=== PATIENT | male | born 1950 | race Caucasian/White ===

== ENCOUNTER 2018-11-14 19:04 | Observation (INO) | payer MEDICARE, SELFPAY ==
[2018-11-14 19:17] VITALS: BP 152/79; PULSE 46; RESP 16; O2SAT 99; BMI 25.8
[2018-11-14] MEDS: SODIUM CHLORIDE 0.9% 1,000 ML 1000 ML IV (22:49)
[2018-11-14 22:53] LABS: Add Manual Diff / Slide Review NO; Basophils Absolute Auto 0 /uL (0-100); Basophils Percent Auto 0.4 % (0-2); Eosinophils Absolute Auto 100 /uL (0-450); Hematocrit 46.6 % (41-53); Hemoglobin 15.7 g/dL (13.5-17.5); Lymphocytes Absolute Auto 1100 /uL (1100-4500); Lymphocytes Percent Auto 18.5 % (25-40); Mean Corpuscular HGB Conc 33.7 % (30-36); Mean Corpuscular Hemoglobin 30.9 PG (26-34); Mean Corpuscular Volume 91.6 fL (80-100); Monocytes Absolute Auto 400 /uL (0-900); Monocytes Percent Auto 6.1 % (3-14); Neutrophils Absolute Auto 4500 /uL (1500-7000); Platelet Count 163 X10^3/uL (150-400); Red Blood Cell Count 5.09 X10^6/uL (4.5-5.9); Red Cell Distribution Width 12.5 % (11.6-14.8); White Blood Cell Count 6.2 X10^3/uL (4.5-11.0)
[2018-11-14] MEDS: HYDROMORPHONE 0.5 MG INJ IV (22:59)
[2018-11-14 23:03] LABS: Lactate (Lactic Acid) 0.6 mmol/L (0.7-2.1)
[2018-11-14 23:04] LABS: BUN Creatinine Ratio 15.6 (6-22); Blood Urea Nitrogen 14 mg/dL (9-20); Calcium 8.9 mg/dL (8.4-10.2); Carbon Dioxide 27 mmol/L (22-32); Chloride 104 mmol/L (98-107); Estimated Glomerular Filt Rate > 60.0 mL/min (>60); Glucose 96 mg/dL (80-110); HEMOLYSIS 16 (0-50); Potassium 4.5 mmol/L (3.4-5.1); Sodium 139 mmol/L (137-145)
[2018-11-14 23:30] VITALS: BP 155/75; PULSE 50; RESP 16; O2SAT 96
--- NOTE | 2018-11-14 23:34 | DI.CT.S_ITS ---
PROCEDURE: CT ABDOMEN PELVIS W CON INDICATIONS: severe right lower quadrant pain,incarcerated inguinal hernia, per general surgeon TECHNIQUE: After the administration of intravenous contrast, 5 mm thick sections acquired from the diaphragm to the symphysis. 5 mm coronal and sagittal reformats were acquired. For radiation dose reduction, the following was used: automated exposure control, adjustment of mA and/or kV according to patient size. COMPARISON: None. FINDINGS: Image quality: Excellent. ABDOMEN: Lung bases: Nodular infiltrates in the left lower lobe. Heart size is normal. Moderate size hiatal hernia. Solid organs: There is a 2.6 cm diameter enhancing mass in the anterior segment of right hepatic lobe. A 1.0 cm low density nodule is present in the left hepatic lobe. Liver is normal in size and enhancement. Gallbladder is is surgically absent. Biliary system is non dilated. Pancreas enhances normally. Spleen is normal in size and enhancement. No adrenal nodules. Kidneys demonstrate bilateral renal cortical thinning. There are multiple parapelvic cysts in the kidneys bilaterally. There is a duplicated right renal collecting system. The upper moiety of the right renal collecting system is dilated. There is moderate dilation of the right upper ureter. The lower moiety is mildly dilated but the right lower ureter is nondilated. Peritoneum and bowel: Bowel loops demonstrate normal wall thickness and caliber. There are multiple colonic diverticula. No free fluid or air. Nodes and vessels: No retroperitoneal or mesenteric adenopathy by size criteria. Aorta and inferior vena cava are normal in size. Miscellaneous: No ventral hernias. PELVIS: Genitourinary: Bladder wall thickness is normal. Miscellaneous: No inguinal adenopathy. There is a large fat containing left inguinal hernia. The right anterior corner of the ureter bladder is displaced toward the hernia neck. There is mild focal thickening in the right anterior bladder wall, likely reflect inflammatory change. Bones: There are multiple sclerotic foci in the lumbar spine involving L1, L2, L3, L4 and L5, sacrum and iliac bones bilaterally. No vertebral body compression fractures. Degenerative changes are noted. IMPRESSION: 1. There is a large fat containing right inguinal hernia. The right anterior corner of the urinary bladder is displaced toward the hernia neck. There is mild focal thickening in the right anterior bladder wall, likely reflect inflammatory change. 2. Duplicated right renal collecting system. There is dilation of the right upper renal pelvis and dilation of the right ureter to the level of right UVJ. Although the right lower renal pelvis is also mildly dilated, the right lower ureter is nondilated. No obstructive stones are identified. CT IVP or cystoscopy may be helpful for further evaluation. 3. A 2.6 cm diameter enhancing mass in the posterior segment the right hepatic lobe. Further evaluation with liver protocol MRI or CT is suggested. 4. Nodular infiltrates in the left lower lobe suspicious for pneumonia or aspiration. 5. Moderate-sized hiatal hernia. 6. Diverticulosis without acute diverticulitis. 7. Multiple sclerotic lesions in lumbar spine, sacrum and iliac bones. Cannot rule out metastatic disease. A whole body bone scan is suggested for followup. Dictated by: Danika Ireland M.D. on 11/15/2018 at 8:54 Approved by: Danika Ireland M.D. on 11/15/2018 at 9:26
[2018-11-15] VITALS (7 sets, daily range): BP systolic 117–153; BP diastolic 64–87; PULSE 48–58; RESP 16–20; TEMP 36.5–36.8; O2SAT 93–98; BMI 25.8
--- NOTE | 2018-11-15 00:59 | ED_ITS ---
HPI - Abdominal Pain General Chief Complaint: Abdominal Pain Stated Complaint: thinks inguinal hernia Time Seen by Provider: 11/14/18 21:58 Source: patient and family Mode of arrival: ambulatory Limitations: no limitations History of Present Illness HPI narrative: 67-year-old male nonsmoker with history of GERD and developmental delay presents with his brother for evaluation of right groin pain and suspected groin hernia. He was seen by his primary care doctor (Dr. ozuna) today and told that he has a groin hernia and it was arranged for him to have urgent follow-up with General surgery tomorrow but if his pain worsened he should present to the emergency department. Patient has had no fever or chills. He has no vomiting or change in bowel habits and in fact had a bowel movement this evening. It is unclear how long he has had this hernia MD complaint: abdominal pain Onset (ago): day(s) Pain Consistency: constant Location: RLQ Severity: moderate Quality: cramping Radiation: none Relieving factors: nothing Exacerbating factors: bowel movement and movement Associated symptoms: denies other symptoms Related Data Home Medications Medication Instructions Recorded Confirmed omeprazole 20 mg tablet,delayed 20 mg PO DAILY 09/23/18 09/23/18 release Allergies Allergy/AdvReac Type Severity Reaction Status Date / Time No Known Drug Allergies Allergy Verified 11/14/18 19:17 Review of Systems Constitutional Denies chills, Denies fever(s), Denies lethargy and Denies weakness Eyes Denies change in vision, Denies eye discharge, Denies irritation and Denies loss of vision ENT Ears, Nose, Mouth, and Throat: Denies change in voice, Denies neck pain and Denies sore throat Cardiovascular Denies chest pain, Denies irregular heart rhythm, Denies lightheadedness, Denies palpitations, Denies dyspnea, Denies dyspnea on exertion and Denies orthopnea Respiratory Denies cough, Denies dyspnea, Denies dyspnea on exertion and Denies wheezing Gastrointestinal Gastrointestinal: Reports abdominal pain, Denies change in bowel habits, Denies diarrhea, Denies nausea and Denies vomiting Genitourinary Denies hematuria, Denies flank pain, Denies urinary incontinence and Denies urinary urgency Musculoskeletal Denies neck pain Integumentary/Breasts Denies pruritus, Denies erythema, Denies rash and Denies wounds Neurologic Denies confusion, Denies loss of vision and Denies weakness Psychiatric Denies anxiety, Denies confusion, Denies depression, Denies homicidal ideation and Denies suicidal ideation Endocrine Denies palpitations Hematologic/Lymphatic Denies easy bruising Allergic/Immunologic Denies wheezing PFSH Social History Smoking Status: Never smoker Social History Smoking Status: Never smoker Exam Narrative Exam Narrative: GENERAL: S 67-year-old male appears stated age, flat affect in no obvious or significant distress HEAD: Atraumatic. Normocephalic. No temporal or scalp tenderness. EYES: Pupils equal round and reactive. Extraocular motions intact. No scleral icterus. No injection or drainage. ENT: Nose without bleeding, purulent drainage or septal hematoma. Throat without erythema, tonsillar hypertrophy or exudate. Uvula midline. Airway patent. NECK: Trachea midline. No JVD or lymphadenopathy. Supple, nontender, no meningeal signs. CARDIOVASCULAR: Regular rate and rhythm without murmurs, gallops, or rubs. RESPIRATORY: Clear to auscultation. Breath sounds equal bilaterally. No wheezes, rales, or rhonchi. GASTROINTESTINAL: Abdomen soft, tender in right lower quadrant with obvious inguinal hernia, nondistended. Patient examined in standing position and right inguinal hernia is present, it is irreducible while standing. Patient placed in Trendelenburg after Dilaudid administered and still unable to reduce EXTREMITIES: No clubbing, cyanosis, or edema. No joint tenderness, effusion, or edema noted. BACK: Nontender without deformity or crepitance. No flank tenderness. NEURO: AOx3. SKIN: No rash or erythema. Initial Vital Signs Initial Vital Signs: Vital Signs Pulse Rate 46 L 11/14/18 19:17 Respiratory Rate 16 11/14/18 19:17 Blood Pressure 152/79 H 11/14/18 19:17 Pulse Oximetry 99 11/14/18 19:17 Course Orders Ordered: ED Orders 11/14/18 22:42 Basic Metabolic Panel Stat Complete Blood Count AUTO DIFF Stat Lactate (Lactic Acid) Stat 11/14/18 23:34 CT abdomen pelvis w con Stat Discontinued Medications Hydromorphone HCl (Dilaudid) 0.5 mg IV NOW ONE Stop: 11/14/18 22:14 Last Admin: 11/14/18 22:59 Dose: 0.5 mg Sodium Chloride (Normal Saline 0.9%) 1,000 mls @ 1,000 mls/hr IV BOLUS ONE Stop: 11/14/18 23:12 Last Infusion: 11/14/18 23:49 Dose: 0 mls/hr Admin: 11/14/18 22:49 Dose: 1,000 mls/hr Reevaluation(s) Reevaluation #1: Unable to reduce after placing patient in Trendelenburg and Dilaudid administered. Contacted General surgery whom requests CT scan and admission for likely surgery tomorrow. CT pending Consultations Consultation #1: Dr. Lynch is happy to accept patient and will likely take to OR tomorrow Vital Signs - 8 hr 11/14/18 19:17 11/14/18 23:30 11/15/18 00:30 Pulse Rate 46 L 50 L 49 L Respiratory Rate 16 16 16 Blood Pressure 152/79 H Blood Pressure [Left Arm] 155/75 H 143/68 H Pulse Oximetry 99 96 93 MDM - Abdominal Pain Lab Data Result diagrams: 11/14/18 22:42 11/14/18 22:42 Lab Results 11/14/18 11/14/18 11/14/18 Range/Units 22:42 22:42 22:42 WBC 6.2 (4.5-11.0) X10^3/uL RBC 5.09 (4.5-5.9) X10^6/uL Hgb 15.7 (13.5-17.5) g/dL Hct 46.6 (41-53) % MCV 91.6 (80-100) fL MCH 30.9 (26-34) PG MCHC 33.7 (30-36) % RDW 12.5 (11.6-14.8) % Plt Count 163 (150-400) X10^3/uL Neut % (Auto) 73.0 (50-75) % Lymph % (Auto) 18.5 L (25-40) % [place] % (Auto) 6.1 (3-14) % Eos % (Auto) 2.0 (2-4) % Baso % (Auto) 0.4 (0-2) % Neut # (Auto) 4500 (3682-0129) /uL Lymph # (Auto) 1100 (7148-1015) /uL [place] # (Auto) 400 (0-900) /uL Eos # (Auto) 100 (0-450) /uL Baso # (Auto) 0 (0-100) /uL Sodium 139 (137-145) mmol/L Potassium 4.5 (3.4-5.1) mmol/L Chloride 104 (98-107) mmol/L Carbon Dioxide 27 (22-32) mmol/L BUN 14 (9-20) mg/dL Creatinine 0.90 (0.66-1.25) mg/dL Estimated GFR > 60.0 (>60) mL/min BUN/Creatinine Ratio 15.6 (6-22) Glucose 96 (80-110) mg/dL Lactate 0.6 L (0.7-2.1) mmol/L Calcium 8.9 (8.4-10.2) mg/dL Point of care testing: Urine Dip Bedside Urine Glucose Negative Bedside Urine Bilirubin - Negative Bedside Urine Ketone - Negative Urine Specific [place] 1.010 Bedside Urine Occult Blood - Negative Bedside Urine pH 7.5 Bedside Urine Protein - Negative Bedside Urine Urobilinogen - Negative Bedside Urine Nitrite - Negative Bedside Urine Leukocytes - Negative Esterase Imaging Data CT scan - abdomen: Radiologist's impression: Large R inguinal hernia containing fat and a portion of the urinary bladder and inflammatory changes suggesting incarceration Discharge Plan Departure Prescriptions: No Action omeprazole 20 mg tablet,delayed release (DR/EC) 20 mg PO DAILY RF: 0
[2018-11-15] MEDS: SODIUM CHLORIDE 0.9% 1,000 ML 125 ML IV ×2 (02:03→10:17)
--- NOTE | 2018-11-15 03:09 | PC.NURSE ---
pt admitted to room 226 at approx 0200 from ed- he is alert/oriented and presently denies pain- iv running at 125cc/h, oriented to room, call light and bed controls- ambulated to bathroom for small urinary void- tucked back in and understands the plan for NPO status
--- NOTE | 2018-11-15 09:15 | PM.HP.1 ---
History of Present Illness Date Patient Seen: 11/15/18 Time Patient Seen: 09:15 Chief complaint: thinks inguinal hernia Narrative: Costa is a very pleasant 67-year-old gentleman who has recently moved to the area with his family. He suffered from a cold in the last several days and was seen by Dr. Millan recently and started on a Z-Wallace. Unfortunately, with all the coughing, he developed a right inguinal hernia that became acutely incarcerated yesterday. Dr. Millan tried to reduce it in his office and Dr. coon tried to reduce it in our emergency room. Both without any luck. CT scan revealed that the hernia was incarcerated with portions of bladder and omentum and preperitoneal fat. Overnight, Costa's pain has completely resolved. He is no longer uncomfortable and he is walking passing flatus and able to urinate without difficulty. Today he is accompanied by his oxibip-cz-cew with whom he lives. Patient History Social History household members: family Smoking Status: Never smoker alcohol intake: never Family & Social History Social History: household members family Prior Living Arrangements House Safety & Behavioral: Feels Safe in Current Yes Environment Suicidal Ideation Description None Suicide Plan Description No Plan Tobacco & Substance use: Smoking Status Never smoker alcohol intake never Substance Use Type does not use Meds Home Medications Medication Instructions Recorded Confirmed Type omeprazole 20 mg tablet,delayed 20 mg PO DAILY 09/23/18 09/23/18 History release Allergies Allergy/AdvReac Type Severity Reaction Status Date / Time No Known Drug Allergies Allergy Verified 11/14/18 19:17 Review of Systems Review of Systems All systems reviewed & are unremarkable except as noted in HPI and below Exam Vital Signs (past 8 hours): - 11/15/18 01:30 11/15/18 01:55 11/15/18 05:40 Temperature 97.8 F 98 F Pulse Rate 49 L 58 L 50 L Respiratory Rate 16 20 16 Blood Pressure 153/68 H 133/73 Blood Pressure [Left Arm] 132/64 Pulse Oximetry 94 98 98 11/15/18 08:00 Temperature 98.1 F Pulse Rate 48 L Respiratory Rate 17 Blood Pressure 117/66 Blood Pressure [Left Arm] Pulse Oximetry 97 Oxygen Delivery Method Room Air Narrative Exam Narrative: Very pleasant gentleman who appears younger than his stated age. He is somewhat developmentally delayed but very interactive and pleasant HEENT: Normocephalic and atraumatic, pupils equal round reactive to light accommodation with anicteric sclera Lungs: Clear to auscultation bilaterally. He does have some upper airway noise but improved with coughing Heart: Regular rate and rhythm without murmur rub or gallop Extremities: Warm and well perfused without any edema. He does have a macular rash on the lateral aspect of his left lower leg. His [id number] reports this has been there for years and is unchanged. Weakly palpable posterior tibial pulses bilaterally Abdomen: Soft, he has a small umbilical hernia that is soft and not incarcerated. He has a larger tender but very soft right inguinal hernia. He says there is no pain there now. There are certainly not an incarcerated mass any longer. He has active bowel sounds. His abdomen is otherwise nontender. Objective Labs Result Diagrams: 11/14/18 22:42 11/14/18 22:42 Labs: Laboratory Results - last 24 hr 11/14/18 11/14/18 11/14/18 22:42 22:42 22:42 WBC 6.2 RBC 5.09 Hgb 15.7 Hct 46.6 MCV 91.6 MCH 30.9 MCHC 33.7 RDW 12.5 Plt Count 163 Neut % (Auto) 73.0 Lymph % (Auto) 18.5 L [place] % (Auto) 6.1 Eos % (Auto) 2.0 Baso % (Auto) 0.4 Neut # (Auto) 4500 Lymph # (Auto) 1100 [place] # (Auto) 400 Eos # (Auto) 100 Baso # (Auto) 0 Sodium 139 Potassium 4.5 Chloride 104 Carbon Dioxide 27 BUN 14 Creatinine 0.90 Estimated GFR > 60.0 BUN/Creatinine Ratio 15.6 Glucose 96 Lactate 0.[address] images are personally reviewed and consistent with what I have stated in history of present illness. Assessment & Plan Assessment & Plan narrative: Very pleasant 67-year-old gentleman with a recent upper respiratory infection and a right inguinal hernia that became incarcerated over the day yesterday. I have discussed hernia repair with both dated and his caregiver. They have both expressed a desire to have the procedure completed today. It has been scheduled for approximately 5:15 p.m.. Consent has been signed and is on the chart.
--- NOTE | 2018-11-15 09:18 | P.HP_ITS ---
History of Present Illness Date Patient Seen: 11/15/18 Time Patient Seen: 09:15 Chief complaint: thinks inguinal hernia Narrative: Costa is a very pleasant 67-year-old gentleman who has recently moved to the area with his family. He suffered from a cold in the last several days and was seen by Dr. Millan recently and started on a Z-Wallace. Unfortunately, with all the coughing, he developed a right inguinal hernia that became acutely incarcerated yesterday. Dr. Millan tried to reduce it in his office and Dr. coon tried to reduce it in our emergency room. Both without any luck. CT sc an revealed that the hernia was incarcerated with portions of bladder and omentum and preperitoneal fat. Overnight, Costa's pain has completely resolved. He is no longer uncomfortable and he is walking passing flatus and able to urinate without difficulty. Today he is accompanied by his [id number]-tal with whom he lives. Patient History Social History household members: family Smoking Status: Never smoker alcohol intake: never Family & Social History Social History: household members family Prior Living Arrangements House Safety & Behavioral: Feels Safe in Current Yes Environment Suicidal Ideation Description None Suicide Plan Description No Plan Tobacco & Substance use: Smoking Status Never smoker alcohol intake never Substance Use Type does not use Meds Home Medications Medication Instructions Recorded Confirmed Type omeprazole 20 mg tablet,delayed 20 mg PO DAILY 09/23/18 09/23/18 History release Allergies Allergy/AdvReac Type Severity Reaction Status Date / Time No Known Drug Allergies Allergy Verified 11/14/18 19:17 Review of Systems Review of Systems All systems reviewed & are unremarkable except as noted in HPI and below Exam Vital Signs (past 8 hours): - 11/15/18 01:30 11/15/18 01:55 11/15/18 05:40 Temperature 97.8 F 98 F Pulse Rate 49 L 58 L 50 L Respiratory Rate 16 20 16 Blood Pressure 153/68 H 133/73 Blood Pressure [Left Arm] 132/64 Pulse Oximetry 94 98 98 11/15/18 08:00 Temperature 98.1 F Pulse Rate 48 L Respiratory Rate 17 Blood Pressure 117/66 Blood Pressure [Left Arm] Pulse Oximetry 97 Oxygen Delivery Method Room Air Narrative Exam Narrative: Very pleasant gentleman who appears younger than his stated age. He is somewhat developmentally delayed but very interactive and pleasant HEENT: Normocephalic and atraumatic, pupils equal round reactive to light a ccommodation with anicteric sclera Lungs: Clear to auscultation bilaterally. He does have some upper airway noise but improved with coughing Heart: Regular rate and rhythm without murmur rub or gallop Extremities: Warm and well perfused without any edema. He does have a macular rash on the lateral aspect of his left lower leg. His [id number]-brv reports this has been there for years and is unchanged. Weakly palpable posterior tibial pulses bilaterally Abdomen: Soft, he has a small umbilical hernia that is soft and not incarcerated. He has a larger tender but very soft right inguinal hernia. He says there is no pain there now. There are certainly not an incarcerated mass any longer. He has active bowel sounds. His abdomen is otherwise nontender. Objective Labs Result Diagrams: 11/14/18 22:42 11/14/18 22:42 Labs: Laboratory Results - last 24 hr 11/14/18 11/14/18 11/14/18 22:42 22:42 22:42 WBC 6.2 RBC 5.09 Hgb 15.7 Hct 46.6 MCV 91.6 MCH 30.9 MCHC 33.7 RDW 12.5 Plt Count 163 Neut % (Auto) 73.0 Lymph % (Auto) 18.5 L [place] % (Auto) 6.1 Eos % (Auto) 2.0 Baso % (Auto) 0.4 Neut # (Auto) 4500 Lymph # (Auto) 1100 [place] # (Auto) 400 Eos # (Auto) 100 Baso # (Auto) 0 Sodium 139 Potassium 4.5 Chloride 104 Carbon Dioxide 27 BUN 14 Creatinine 0.90 Estimated GFR > 60.0 BUN/Creatinine Ratio 15.6 Glucose 96 Lactate 0.[address] images are personally reviewed and consistent with what I have stated in history of present illness. Assessment & Plan Assessment & Plan narrative: Very pleasant 67-year-old gentleman with a recent upper respiratory infection and a right inguinal hernia that became incarcerated over the day yesterday. I have discussed hernia repair with both dated and his caregiver. They have both expressed a desire to have the procedure completed today. It has been scheduled for approximately 5:15 p.m.. Consent has been signed and is on the chart.
[2018-11-15] MEDS: PANTOPRAZOLE 40 MG VIAL IV (10:16)
[2018-11-15] MEDS: CEFTRIAXONE 2 GM/50 ML FROZ.PIGGY IV (10:16)
--- NOTE | 2018-11-15 12:29 | PC.NURSE ---
Day shift pt continues to denies any pain at this time. Denies any nausea or GI upset. Continues to be NPO, call light within reach.
--- NOTE | 2018-11-15 16:16 | CM.DANOTE ---
Discharge Planning/Care Management DCP: assessment: chart review. Case received this morning and EMR is now reviewed. Pt is a 67 year old male who admitted early this mornin to care of General Surgeon: Dr. Lynch. Payer: [facility] Medicare. Pt lives with his sister in law and brother in [place]: DR. Millan: PCP. Dr. Lynch discussed the plan of care with pt and his sister in law and then with the UR RN team/Chandrika: she confirmed that pt would be taken to the OR when he could be fit in to schedule today and then she plans to send him home form right from surgery if he is stable for same. DCP team will check in tomorrow if he instead returns to rm 226 and follow prn for any needs. Advanced directive, confirm from FAMILY Start: 11/15/18 02:37 Freq: Q24H Status: Active Protocol: Document 11/15/18 02:37 TJB (Rec: 11/15/18 03:04 TJB [id number]) Advance Directive, confirm on record Time 03:04 Person contacted patient Copy received No CM Discharge Assessment Start: 11/15/18 16:13 Freq: Status: Active Protocol: Document 11/15/18 16:13 ITV (Rec: 11/15/18 16:15 ITV [id number]) Discharge Planning Assessment Advance Directives? No History Provided By Medical Record Prior Living Arrangements House Household Members family Comment lives with his brother and sister in law. Is patient alert and oriented? Dr. Lynch indicates pt with some mild developmental delay Review Status In Process Next Review Type Continued Stay Review
--- NOTE | 2018-11-15 16:45 | PM.PN.1 ---
Subjective Date Patient Seen: 11/15/18 Time Patient Seen: 16:45 Interval history: The patient has no complaints this afternoon other than being hungry. He is accompanied this afternoon by his brother who is his local family and with whom he lives. After discussing OR timing, both patient and family have agreed to continue taking the Zithromax Dosepak and come back for scheduled operation a week from now. This will give him time to clear his upper respiratory infection. Until that time, he will avoid lifting more than 5 lb. He will also limit his walks to a half a mile as opposed to 2 miles. The office will call and give him instructions. Exam Vital Signs (past 8 hours): - 11/15/18 12:00 Temperature 97.7 F Pulse Rate 54 L Respiratory Rate 16 Blood Pressure 130/87 Oxygen Delivery Method Room Air Oxygen Flow Rate 99 Objective Labs Result Diagrams: 11/14/18 22:42 11/14/18 22:42 Labs: Laboratory Results - last 24 hr 11/14/18 11/14/18 11/14/18 22:42 22:42 22:42 WBC 6.2 RBC 5.09 Hgb 15.7 Hct 46.6 MCV 91.6 MCH 30.9 MCHC 33.7 RDW 12.5 Plt Count 163 Neut % (Auto) 73.0 Lymph % (Auto) 18.5 L [place] % (Auto) 6.1 Eos % (Auto) 2.0 Baso % (Auto) 0.4 Neut # (Auto) 4500 Lymph # (Auto) 1100 [place] # (Auto) 400 Eos # (Auto) 100 Baso # (Auto) 0 Sodium 139 Potassium 4.5 Chloride 104 Carbon Dioxide 27 BUN 14 Creatinine 0.90 Estimated GFR > 60.0 BUN/Creatinine Ratio 15.6 Glucose 96 Lactate 0.6 L Calcium 8.9
--- NOTE | 2018-11-15 18:36 | PC.NURSE ---
in to see. Surgery postponed until next week HL discontinued, Home, instrutions given Escorted by staff to waiting vehicle Discharged in stable condition.
== END 2018-11-15 17:15 | disposition home or self-care (01) ==
LOC: ED 21:58 → AC 11-15 02:10
PROVIDERS: Admitting Provider Surgery; Emergency Provider Emergency Medicine; PCP Internal Medicine; Visit Provider Surgery
DX: K40.30 Unilateral inguinal hernia, with obstruction, without gangrene, not specified as recurrent (principal); R10.9 Unspecified abdominal pain
CPT/HCPCS: 36591; 74177; 80048; 81003; 83605; 85025; 96361; 96374; 99220; 99283; 99285; G0378; C9113; J0696; J1170; Q9967

== ENCOUNTER 2018-11-23 10:23 | Day surgery (SDC) | payer MEDICARE, SELFPAY ==
[2018-11-15 02:06] VITALS: BMI 25.8
[2018-11-18 09:09] VITALS: BMI 25.4
[2018-11-23] VITALS (8 sets, daily range): BP systolic 120–146; BP diastolic 70–83; PULSE 64–89; RESP 9–16; TEMP 36.2–36.7; O2SAT 98–100; BMI 25.4
[2018-11-23] MEDS: LACTATED RINGERS 1,000 ML 42 ML IV (11:15)
--- NOTE | 2018-11-23 11:19 | PM.PREOP ---
Pre-operative Note Interval Note History & Physical reviewed/Exam performed by Physician: Yes Changes to H&P: No
[2018-11-23] MEDS: CEFAZOLIN 1 GM VIAL IV (11:44)
--- NOTE | 2018-11-23 11:50 | SUR.OPER ---
Supine on padded OR bed, head on pillow, arms secured on padded arm boards at <90 degrees abduction, legs uncrossed, safety belt at thigh.
[2018-11-23] MEDS: BUPIVACAINE 0.5% (PF) VIAL 30 ML INJ (11:54)
[2018-11-23] MEDS: LIDOCAINE 1% W/EPI INJ 20 ML INJ (11:55)
[2018-11-23] MEDS: SODIUM CHLORIDE IRRIG SOLUTION 250 ML, CEFAZOLIN VIAL 1 GM IRR (12:08)
--- NOTE | 2018-11-23 12:47 | PM.OP.1 ---
Operative Date/Time/Diagnoses Date of procedure: 11/23/18 Time of procedure: 12:47 Pre-op diagnosis: Right Inguinal Hernia Post-op diagnosis: same Procedure & Clinicians Procedure: Right Inguinal Hernia Repair Same procedure as scheduled: Yes Indications: Large Intermittently Incarcerated Right Inguinal Hernia Click Yes if Unassisted: Yes Anesthesia Type: General (Dr. Moore) Operative Notes Findings: Very Large Indirect Right Inguinal Hernia Closure Type: primary Specimen(s): none sent Prosthetic devices, grafts, tissues, transplants, or devices: Large Proloop Mesh Plug and Patch Estimated Blood Loss (mL): 10 Procedure in detail: After obtaining informed consent the patient was brought to the operating room and placed in the supine position on the operating table. Following successful induction of general endotracheal anesthesia, appropriate padding of all bony prominences, and a placement of appropriate monitors, the left groin is prepped and draped in a standard surgical fashion. A timeout was held per protocol. We began the procedure by infiltrating a mixture of local anesthetics medial to the anterior superior iliac spine on the right. Following this, an incision was fashioned in the right groin superior and lateral to the left pubic tubercle. This area was infiltrated with local anesthetic to create a field block. A skin incision was created here and carried down through the skin and subcutaneous tissue to reveal Louise's fascia below. Louise's fascia was divided sharply revealing the external oblique aponeurosis below. More local anesthetic was infiltrated in the aponeurosis and it was opened in the direction of its fibers. The spermatic cord and its contents were surrounded and retracted gently using a [place] drain. The hernia sac was identified in the lateral position and carefully dissected free from the cord structures. This was carefully placed back into the abdominal cavity without injury. A large portion of PROloop mesh was chosen for the repair. The plug was soaked in Ancef solution and deployed into the defect in the defect. This was sewn into place with interrupted Vicryl sutures in 2 positions. The overlying mesh layer was sewn to the pubic tubercle with an air knot of Vicryl suture. The lateral leaflets were then carefully placed around the spermatic cord and sewn together with another suture. Tags of the overlying mesh were then tucked under the external oblique aponeurosis. The wound was checked for hemostasis and irrigated with Ancef-containing solution. The edges of the external oblique aponeurosis were approximated and closed with a running Vicryl suture. The wound was irrigated once again and Louise's fascia was closed with a running suture. Monocryl sutures were placed in the skin. All sponge, needle, and instrument counts were correct at the conclusion of the case. The patient was allowed to awaken from anesthesia without difficulty and taken to the post anesthesia care unit in good condition. Complications: none Condition: stable Disposition: PACU Plan for aftercare: 1. Discharge to home 2. Follow up with me in my office in 2 weeks
--- NOTE | 2018-11-23 13:06 | SUR.PHASEI ---
Awake, taking sips of water, asking appropriate questions about surgery, being sleepy today, and pain. Denies nausea and pain.
== END 2018-11-23 14:24 | disposition home or self-care (01) ==
PROVIDERS: PCP Internal Medicine; Visit Provider Surgery
PROC: (CPT 49505; principal; 2018-11-23 14:15)
DX: K40.30 Unilateral inguinal hernia, with obstruction, without gangrene, not specified as recurrent (principal)
CPT/HCPCS: 49505; C1781; J0690; J1885; J2405; J2704; J3010

== ENCOUNTER 2018-11-25 06:40 | Inpatient (IN) | payer MEDICARE, SELFPAY ==
[2018-11-15 02:06] VITALS: BMI 25.8
[2018-11-25] VITALS (18 sets, daily range): BP systolic 89–128; BP diastolic 52–73; PULSE 67–95; RESP 18–23; TEMP 35.9–39.3; O2SAT 91–100; BMI 25.8; BMI 25.9
--- NOTE | 2018-11-25 | DI.RAD.S_ITS ---
PROCEDURE: XR KUB INDICATIONS: bilateral hydronephrosis TECHNIQUE: One view of the abdomen acquired. COMPARISON: [facility], CT, CT ABDOMEN PELVIS W CON, 11/14/2018, 23:36. FINDINGS: Surgical changes and devices: Cholecystectomy clips are noted. Bowel: Bowel gas pattern is normal. Soft tissues: No suspicious abdominal calcifications. Visualized solid organ contours appear normal in size. Bones: No suspicious bony lesions. IMPRESSION: No renal stones identified. Dictated by: Danika Ireland M.D. on 11/25/2018 at 15:22 Approved by: Danika Ireland M.D. on 11/25/2018 at 15:23
--- NOTE | 2018-11-25 06:41 | DI.RAD.S_ITS ---
PROCEDURE: XR CHEST 1V INDICATIONS: dyspnea, cough, fever TECHNIQUE: One view of the chest was acquired. COMPARISON: None. FINDINGS: Surgical changes and devices: None. Lungs and pleura: There is infiltrate in right lung suspicious for pneumonia. No pleural effusions or pneumothorax. Mediastinum: Mediastinal contours appear normal. Heart size is normal. Bones and chest wall: No suspicious bony lesions. Overlying soft tissues appear unremarkable. IMPRESSION: Suspect right pneumonia. Dictated by: Danika Ireland M.D. on 11/25/2018 at 8:37 Approved by: Danika Ireland M.D. on 11/25/2018 at 8:37
--- NOTE | 2018-11-25 06:43 | ED.SOB ---
HPI - SOB/Dyspnea <Melissa King MD - Last Filed: 11/27/18 20:11> General Chief Complaint: Upper Respiratory Symptoms Stated Complaint: Congestion Time Seen by Provider: 11/25/18 06:41 Source: patient, family and EMS Mode of arrival: EMS Limitations: other (Cognitive limitation) History of Present Illness Patient is brought to the emergency department for cough and shortness of breath. According to medics this has been going on for the last couple days but has been worse tonight. Medics also found the patient to have a temperature of 103?. Patient denies chest pain. He states that he does not know if he has been coughing anything up. He also does not know if he has had any abdominal pain. He just states I do not feel good. Patient denies swelling in his legs. Patient states that he does not have a sore throat. Related Data Home Medications Medication Instructions Recorded Confirmed omeprazole 20 mg tablet,delayed 20 mg PO DAILY 09/23/18 11/26/18 release L-Tyrosine 3 tab PO DAILY 11/25/18 11/25/18 cholecalciferol (vitamin D3) 2,000 unit PO DAILY 11/25/18 11/25/18 [Vitamin D3] cranberry extract 300 mg PO DAILY 11/25/18 11/25/18 garlic extract 1 cap PO DAILY 11/25/18 11/25/18 multivitamin 1 tab PO DAILY 11/25/18 11/25/18 ondansetron 4 mg PO Q6H PRN 11/25/18 11/25/18 vitamin K2 100 meq PO DAILY 11/25/18 11/25/18 Previous Rx's Medication Instructions Recorded oxycodone-acetaminophen [Percocet] 1 tab PO Q4-6H PRN #20 tab 11/23/18 benzonatate 200 mg capsule 200 mg PO TID PRN #30 cap 11/24/18 acetaminophen 650 mg PO Q6HR PRN #30 tab 11/27/18 albuterol sulfate 1 puff INHALATION Q6H PRN #18 gram 11/27/18 amoxicillin-pot clavulanate 1 tab PO BID #10 tab 11/27/18 [Augmentin] docusate sodium 100 mg PO BID #60 cap 11/27/18 guaifenesin 1,200 mg PO BID #10 tab 03/17/19 polyethylene glycol 3350 17 gm PO DAILY PRN #1 pkg 11/27/18 sennosides [senna] 17.2 mg PO BEDTIME PRN #30 tab 11/27/18 tamsulosin [Flomax] 0.4 mg PO DAILY #30 cap 11/27/18 Allergies Allergy/AdvReac Type Severity Reaction Status Date / Time No Known Drug Allergies Allergy Verified 11/25/18 12:48 Review of Systems <Melissa King MD - Last Filed: 11/27/18 20:11> Constitutional Denies chills, Denies fever(s), Denies lethargy and Denies weakness Eyes Denies change in vision, Denies eye discharge, Denies irritation and Denies loss of vision ENT Ears, Nose, Mouth, and Throat: Denies change in voice, Denies neck pain and Denies sore throat Cardiovascular Denies chest pain, Denies irregular heart rhythm, Denies lightheadedness, Denies palpitations, Reports dyspnea, Denies dyspnea on exertion and Denies orthopnea Respiratory Reports cough, Reports dyspnea, Denies dyspnea on exertion and Denies wheezing Gastrointestinal Gastrointestinal: Denies abdominal pain, Denies change in bowel habits, Denies diarrhea, Denies nausea and Denies vomiting Genitourinary Denies hematuria, Denies flank pain, Denies urinary incontinence and Denies urinary urgency Musculoskeletal Denies neck pain Integumentary/Breasts Denies pruritus, Denies erythema, Denies rash and Denies wounds Neurologic Denies confusion, Denies loss of vision and Denies weakness Psychiatric Denies anxiety, Denies confusion, Denies depression, Denies homicidal ideation and Denies suicidal ideation Endocrine Denies palpitations Hematologic/Lymphatic Denies easy bruising Allergic/Immunologic Denies wheezing <Antonieta Kaminski DO - Last Filed: 11/25/18 11:29> Review of Systems ROS Unobtainable: All systems reviewed & are unremarkable except as noted in HPI and below Constitutional Denies fatigue and Reports fever(s) Cardiovascular Denies chest pain, Denies edema, Denies dyspnea and Denies dyspnea on exertion Respiratory Reports chest congestion, Reports cough, Denies hemoptysis, Denies pain on inspiration, Denies dyspnea, Denies dyspnea on exertion, Denies stridor and Denies wheezing Gastrointestinal Gastrointestinal: Denies abdominal pain, Denies change in bowel habits, Reports constipation (last BM overnight. hard stool.), Denies diarrhea, Denies nausea, Denies vomiting and Reports other (healing incision) Genitourinary Denies hematuria, Denies genital pain, Denies dysuria, Denies flank pain and Denies urinary urgency Endocrine Denies fatigue Allergic/Immunologic Denies wheezing PFSH <Melissa King MD - Last Filed: 11/27/18 20:11> Medical History Developmental delay (Acute) Asthma (Acute) GERD (gastroesophageal reflux disease) (Acute) Developmental delay, mild (Acute) GERD (gastroesophageal reflux disease) (Acute) Upper respiratory infection (Acute ~11/2018) Surgical History History of tonsillectomy (Acute) History of hernia repair (Acute) Hx of cholecystectomy (Acute) Family History Mother Dementia Father Pneumonia Social History details: Lives with family household members: family Smoking Status: Never smoker alcohol intake: never Family History Mother Dementia Father Pneumonia Social History details: Lives with family household members: family Smoking Status: Never smoker alcohol intake: never Exam <Melissa King MD - Last Filed: 11/27/18 20:11> Initial Vital Signs Initial Vital Signs: Vital Signs Temperature 102.7 F 11/25/18 06:45 Pulse Rate 95 11/25/18 06:45 Respiratory Rate 23 11/25/18 06:45 Blood Pressure 104/56 11/25/18 06:45 Pulse Oximetry 98 11/25/18 06:45 Const General: cooperative and well developed Nutritional Appearance: well nourished Orientation: alert, awake, oriented x3 and not confused [facility] Head: normocephalic and atraumatic Ears: external ears normal Nose: external nose normal and No nasal discharge Face and sinus: face symmetric and No dry mucous membranes Mouth: oral mucosae normal and moist mucous membranes Teeth and gingiva: dentition normal Throat: tonsils normal and uvula midline Eyes General: appearance normal, both eyes and all related structures Eyelids: eyelids normal Conjunctivae: conjunctivae normal Sclera: sclerae normal Pupils: PERRL EOM: EOM intact bilaterally Neck Neck: normal visual inspection, trachea midline, No lymphadenopathy, No midline deformity and No JVD Lymphatic: No lymphedema Chest Chest: normal inspection of the chest Resp Effort & Inspection: normal respiratory effort, able to speak in complete sentences, no respiratory distress and no use of accessory muscles Auscultation: clear to auscultation bilaterally, no rales, no rhonchi and no wheezes Other: Mild tachypnea Cardio Rate: regular rate Rhythm: regular rhythm Heart Sounds: no click, no gallops, no murmurs and no rubs Pulses: normal peripheral pulses GI Inspection: non-distended Palpation: soft, no hepatosplenomegaly, No guarding, No pulsatile mass and No tender Auscultation: normal bowel sounds Back/Spine/Pelvis Back: No CVA tenderness Cervical Spine: cervical ROM normal and No pain with cervical ROM Thoracic/Lumbar Spine: thoracic and lumbar spine normal to inspection Skin General: no rashes or lesions noted, No jaundice and No petechiae Neuro General: alert, oriented x3, gait normal and no focal motor deficits Speech: speech normal Extrem General: full ROM, no clubbing, cyanosis or edema, no pedal edema and no calf tenderness Psych Appearance: well kempt Mental Status: mental status grossly normal Attitude: cooperative Thought Content: normal and suicidality Judgment: judgment good <Antonieta Kaminski, DO - Last Filed: 11/25/18 11:29> Initial Vital Signs Initial Vital Signs: Vital Signs Temperature 102.7 F 11/25/18 06:45 Pulse Rate 95 11/25/18 06:45 Respiratory Rate 23 11/25/18 06:45 Blood Pressure 104/56 11/25/18 06:45 Pulse Oximetry 98 11/25/18 06:45 GEN: well nourished, well appearing male, alert and oriented, patient appears to be in mild distress. patient has mild to moderate developmental delay. He states that he feels fine but he also per his brother always tells everyone he feels fine. He does feel warm to the touch. HEENT: Atraumatic, pupils are equal round reactive to light, extraocular movements are intact, nares are clear, TMs are clear with no fluid, there is no conjunctival pallor. Throat is clear without any exudates, erythema, tonsillar enlargement or uvular deviation HEART: Regular rate and rhythm without murmur, clicks, rubs. No carotid bruits, pulses are equal in upper and lower extremities LUNGS:Lungs crackles right sided, patient has very mild wheeze on the right upper lobe, no tachypnea or accessory muscle use. Patient is able to speak in full sentences. ABD:bowel sounds Hypoactive but present, soft, non-tender, no guarding, rebound, rigidity, no masses noted, no hepatosplenomegaly, a mildly distended. Patient's right inguinal area has a healing surgical incision that appears clean and intact with no surrounding erythema, no drainage or signs of infection. There is fair amount of bruising surrounding the area No hematomas palpated. Patient is only mild tenderness to touch. :No CVA tenderness MSCL: Non-tender, no muscle atrophy NEURO:CN 2-12 intact, sensation normal Course <Melissa King MD - Last Filed: 11/27/18 20:11> Course Narrative: Patient was worked up for his fever, cough, and dyspnea with labs, influenza swab, and chest x-ray. He was given a L 0.9 normal saline, as well as Tylenol, and signed out to Dr. Antonieta Kaminski, pending results of workup. Orders Ordered: ED Orders 11/27/18 13:12 Consult to Home Health Routine Discontinued Medications Acetaminophen (Tylenol) 975 mg PO NOW ONE Stop: 11/25/18 07:09 Last Admin: 11/25/18 07:24 Dose: 975 mg Acetaminophen (Tylenol) 650 mg PO Q6HR PRN PRN Reason: As Needed for Fever/Mild Pain Last Admin: 11/27/18 09:15 Dose: 650 mg Admin: 11/26/18 09:33 Dose: 650 mg Albuterol (Ventolin) 2.5 mg INH RTQ2HR PRN PRN Reason: Shortness Of Breath Or Wheezing Last Admin: 11/25/18 19:46 Dose: 2.5 mg Albuterol/Ipratropium (Duoneb) 3 ml INH Q1H PRN PRN Reason: Shortness Of Breath Albuterol/Ipratropium (Duoneb) 3 ml INH [id number] GELY Last Admin: 11/27/18 12:43 Dose: 3 ml Admin: 11/27/18 06:12 Dose: 3 ml Admin: 11/26/18 18:51 Dose: 3 ml Admin: 11/26/18 13:21 Dose: 3 ml Admin: 11/26/18 07:59 Dose: 3 ml Admin: 11/25/18 17:34 Dose: 3 ml Amoxicillin/Clavulanate Potassium (Augmentin 875-125 Mg) 1 tab PO BID [facility] Benzonatate (Tessalon Perles) 100 mg PO TID PRN PRN Reason: Cough Last Admin: 11/27/18 09:15 Dose: 100 mg Admin: 11/27/18 00:31 Dose: 100 mg Admin: 11/26/18 09:33 Dose: 100 mg Admin: 11/25/18 19:56 Dose: 100 mg Calcium Carbonate (Tums) 1,000 mg PO Q4HR PRN PRN Reason: Dyspepsia Docusate Sodium (Colace) 100 mg PO BID [facility] Last Admin: 11/27/18 09:15 Dose: 100 mg Admin: 11/26/18 21:47 Dose: 100 mg Admin: 11/26/18 09:33 Dose: 100 mg Admin: 11/25/18 19:43 Dose: 100 mg Guaifenesin (Mucinex) 1,200 mg PO BID [facility] Last Admin: 11/27/18 09:15 Dose: 1,200 mg Admin: 11/26/18 21:47 Dose: 1,200 mg Admin: 11/26/18 09:33 Dose: 1,200 mg Admin: 11/25/18 19:43 Dose: 1,200 mg Heparin Sodium (Porcine) (Heparin) 5,000 unit SUBCUT BID [facility] Last Admin: 11/27/18 09:14 Dose: 5,000 unit Admin: 11/26/18 21:47 Dose: 5,000 unit Admin: 11/26/18 09:34 Dose: 5,000 unit Admin: 11/25/18 19:44 Dose: 5,000 unit Sodium Chloride (Normal Saline 0.9%) 1,000 mls @ 1,000 mls/hr IV BOLUS ONE Stop: 11/25/18 07:40 Last Infusion: 11/25/18 08:59 Dose: 0 mls/hr Admin: 11/25/18 06:45 Dose: 1,000 mls/hr Sodium Chloride (Normal Saline 0.9%) 1,000 mls @ 1,000 mls/hr IV BOLUS ONE Stop: 11/25/18 09:16 Last Infusion: 11/25/18 09:41 Dose: 0 mls/hr Admin: 11/25/18 08:59 Dose: 1,000 mls/hr Ceftriaxone Sodium/Dextrose (Rocephin) 1 gm in 50 mls @ 100 mls/hr IV NOW ONE Stop: 11/25/18 09:25 Last Infusion: 11/25/18 09:41 Dose: 0 mls/hr Admin: 11/25/18 09:04 Dose: 100 mls/hr Azithromycin 500 mg/ Dextrose 250 mls @ 250 mls/hr IV Q24H [facility] Stop: 11/27/18 12:31 Last Admin: 11/27/18 12:38 Dose: 250 mls/hr Infusion: 11/26/18 21:47 Dose: 0 mls/hr Admin: 11/26/18 13:19 Dose: 250 mls/hr Infusion: 11/25/18 15:00 Dose: 250 mls/hr Admin: 11/25/18 14:00 Dose: 250 mls/hr Ceftriaxone Sodium/Dextrose (Rocephin) 2 gm in 50 mls @ 100 mls/hr IV 0900 [facility] Last Admin: 11/27/18 09:14 Dose: 100 mls/hr Infusion: 11/25/18 14:05 Dose: 0 mls/hr Admin: 11/25/18 13:26 Dose: 100 mls/hr Sodium Chloride (Normal Saline 0.9%) 250 mls @ 21 mls/hr IV Q24H PRN PRN Reason: Flush Ibuprofen (Advil) 800 mg PO NOW ONE Stop: 11/25/18 07:09 Last Admin: 11/25/18 07:24 Dose: 800 mg Magnesium Hydroxide (Milk Of Magnesia) 30 ml PO BEDTIME PRN PRN Reason: Constipation Ondansetron HCl (Zofran Odt) 4 mg PO Q8HR PRN PRN Reason: Nausea And Vomiting Ondansetron HCl (Zofran) 4 mg IV Q8HR PRN PRN Reason: Nausea And Vomiting Oxycodone/Acetaminophen (Percocet 5/325) 1 tab PO Q4HR PRN PRN Reason: Pain, Moderate (4-6) Pantoprazole Sodium (Protonix) 20 mg PO 0700 [facility] Last Admin: 11/25/18 15:08 Dose: Not Given Pantoprazole Sodium (Protonix) 20 mg PO 0700 [facility] Last Admin: 11/27/18 06:51 Dose: 20 mg Admin: 11/25/18 14:05 Dose: 20 mg Polyethylene Glycol (Miralax) 17 gm PO DAILY PRN PRN Reason: Constipation Last Admin: 11/27/18 09:15 Dose: 17 gm Admin: 11/26/18 09:35 Dose: 17 gm Sennosides (Senna) 17.2 mg PO BEDTIME PRN PRN Reason: Constipation Sodium Chloride (Normal Saline 0.9% Flush) 10 ml IV PRN PRN PRN Reason: Flush Sodium Chloride (Normal Saline 0.9% Flush) 10 ml IV BID [facility] Last Admin: 11/27/18 09:16 Dose: 10 ml Admin: 11/26/18 21:47 Dose: 10 ml Admin: 11/26/18 09:36 Dose: 10 ml Admin: 11/25/18 19:45 Dose: 10 ml Tamsulosin HCl (Flomax) 0.4 mg PO DAILY [facility] Last Admin: 11/27/18 09:15 Dose: 0.4 mg Admin: 11/26/18 09:33 Dose: 0.4 mg Admin: 11/25/18 19:42 Dose: 0.4 mg Vital Signs - 8 hr 11/27/18 12:43 Pulse Rate 62 Respiratory Rate 22 Pulse Oximetry 99 <Antonieta Kaminski, - Last Filed: 11/25/18 11:29> Orders Ordered: ED Orders 11/27/18 13:12 Consult to Home Health Routine Discontinued Medications Acetaminophen (Tylenol) 975 mg PO NOW ONE Stop: 11/25/18 07:09 Last Admin: 11/25/18 07:24 Dose: 975 mg Acetaminophen (Tylenol) 650 mg PO Q6HR PRN PRN Reason: As Needed for Fever/Mild Pain Last Admin: 11/27/18 09:15 Dose: 650 mg Admin: 11/26/18 09:33 Dose: 650 mg Albuterol (Ventolin) 2.5 mg INH RTQ2HR PRN PRN Reason: Shortness Of Breath Or Wheezing Last Admin: 11/25/18 19:46 Dose: 2.5 mg Albuterol/Ipratropium (Duoneb) 3 ml INH Q1H PRN PRN Reason: Shortness Of Breath Albuterol/Ipratropium (Duoneb) 3 ml INH [id number] [facility] Last Admin: 11/27/18 12:43 Dose: 3 ml Admin: 11/27/18 06:12 Dose: 3 ml Admin: 11/26/18 18:51 Dose: 3 ml Admin: 11/26/18 13:21 Dose: 3 ml Admin: 11/26/18 07:59 Dose: 3 ml Admin: 11/25/18 17:34 Dose: 3 ml Amoxicillin/Clavulanate Potassium (Augmentin 875-125 Mg) 1 tab PO BID [facility] Benzonatate (Tessalon Perles) 100 mg PO TID PRN PRN Reason: Cough Last Admin: 11/27/18 09:15 Dose: 100 mg Admin: 11/27/18 00:31 Dose: 100 mg Admin: 11/26/18 09:33 Dose: 100 mg Admin: 11/25/18 19:56 Dose: 100 mg Calcium Carbonate (Tums) 1,000 mg PO Q4HR PRN PRN Reason: Dyspepsia Docusate Sodium (Colace) 100 mg PO BID [facility] Last Admin: 11/27/18 09:15 Dose: 100 mg Admin: 11/26/18 21:47 Dose: 100 mg Admin: 11/26/18 09:33 Dose: 100 mg Admin: 11/25/18 19:43 Dose: 100 mg Guaifenesin (Mucinex) 1,200 mg PO BID [facility] Last Admin: 11/27/18 09:15 Dose: 1,200 mg Admin: 11/26/18 21:47 Dose: 1,200 mg Admin: 11/26/18 09:33 Dose: 1,200 mg Admin: 11/25/18 19:43 Dose: 1,200 mg Heparin Sodium (Porcine) (Heparin) 5,000 unit SUBCUT BID [facility] Last Admin: 11/27/18 09:14 Dose: 5,000 unit Admin: 11/26/18 21:47 Dose: 5,000 unit Admin: 11/26/18 09:34 Dose: 5,000 unit Admin: 11/25/18 19:44 Dose: 5,000 unit Sodium Chloride (Normal Saline 0.9%) 1,000 mls @ 1,000 mls/hr IV BOLUS ONE Stop: 11/25/18 07:40 Last Infusion: 11/25/18 08:59 Dose: 0 mls/hr Admin: 11/25/18 06:45 Dose: 1,000 mls/hr Sodium Chloride (Normal Saline 0.9%) 1,000 mls @ 1,000 mls/hr IV BOLUS ONE Stop: 11/25/18 09:16 Last Infusion: 11/25/18 09:41 Dose: 0 mls/hr Admin: 11/25/18 08:59 Dose: 1,000 mls/hr Ceftriaxone Sodium/Dextrose (Rocephin) 1 gm in 50 mls @ 100 mls/hr IV NOW ONE Stop: 11/25/18 09:25 Last Infusion: 11/25/18 09:41 Dose: 0 mls/hr Admin: 11/25/18 09:04 Dose: 100 mls/hr Azithromycin 500 mg/ Dextrose 250 mls @ 250 mls/hr IV Q24H [facility] Stop: 11/27/18 12:31 Last Admin: 11/27/18 12:38 Dose: 250 mls/hr Infusion: 11/26/18 21:47 Dose: 0 mls/hr Admin: 11/26/18 13:19 Dose: 250 mls/hr Infusion: 11/25/18 15:00 Dose: 250 mls/hr Admin: 11/25/18 14:00 Dose: 250 mls/hr Ceftriaxone Sodium/Dextrose (Rocephin) 2 gm in 50 mls @ 100 mls/hr IV 0900 [facility] Last Admin: 11/27/18 09:14 Dose: 100 mls/hr Infusion: 11/25/18 14:05 Dose: 0 mls/hr Admin: 11/25/18 13:26 Dose: 100 mls/hr Sodium Chloride (Normal Saline 0.9%) 250 mls @ 21 mls/hr IV Q24H PRN PRN Reason: Flush Ibuprofen (Advil) 800 mg PO NOW ONE Stop: 11/25/18 07:09 Last Admin: 11/25/18 07:24 Dose: 800 mg Magnesium Hydroxide (Milk Of Magnesia) 30 ml PO BEDTIME PRN PRN Reason: Constipation Ondansetron HCl (Zofran Odt) 4 mg PO Q8HR PRN PRN Reason: Nausea And Vomiting Ondansetron HCl (Zofran) 4 mg IV Q8HR PRN PRN Reason: Nausea And Vomiting Oxycodone/Acetaminophen (Percocet 5/325) 1 tab PO Q4HR PRN PRN Reason: Pain, Moderate (4-6) Pantoprazole Sodium (Protonix) 20 mg PO 0700 [facility] Last Admin: 11/25/18 15:08 Dose: Not Given Pantoprazole Sodium (Protonix) 20 mg PO 0700 [facility] Last Admin: 11/27/18 06:51 Dose: 20 mg Admin: 11/25/18 14:05 Dose: 20 mg Polyethylene Glycol (Miralax) 17 gm PO DAILY PRN PRN Reason: Constipation Last Admin: 11/27/18 09:15 Dose: 17 gm Admin: 11/26/18 09:35 Dose: 17 gm Sennosides (Senna) 17.2 mg PO BEDTIME PRN PRN Reason: Constipation Sodium Chloride (Normal Saline 0.9% Flush) 10 ml IV PRN PRN PRN Reason: Flush Sodium Chloride (Normal Saline 0.9% Flush) 10 ml IV BID [facility] Last Admin: 11/27/18 09:16 Dose: 10 ml Admin: 11/26/18 21:47 Dose: 10 ml Admin: 11/26/18 09:36 Dose: 10 ml Admin: 11/25/18 19:45 Dose: 10 ml Tamsulosin HCl (Flomax) 0.4 mg PO DAILY [facility] Last Admin: 11/27/18 09:15 Dose: 0.4 mg Admin: 11/26/18 09:33 Dose: 0.4 mg Admin: 11/25/18 19:42 Dose: 0.4 mg Vital Signs - 8 hr 11/27/18 12:43 Pulse Rate 62 Respiratory Rate 22 Pulse Oximetry 99 MDM - SOB/Dyspnea <Melissa King MD - Last Filed: 11/27/18 20:11> Lab Data Result diagrams: 11/27/18 07:55 11/27/18 07:55 Lab Results 11/25/18 11/25/18 11/25/18 Range/Units 06:40 06:55 06:55 WBC 11.1 H (4.5-11.0) X10^3/uL RBC 4.89 (4.5-5.9) X10^6/uL Hgb 15.0 (13.5-17.5) g/dL Hct 45.0 (41-53) % MCV 92.0 (80-100) fL MCH 30.7 (26-34) PG MCHC 33.4 (30-36) % RDW 12.7 (11.6-14.8) % Plt Count 138 L (150-400) X10^3/uL Neut % (Auto) 93.4 H (50-75) % Lymph % (Auto) 3.3 L (25-40) % [place] % (Auto) 2.8 L (3-14) % Eos % (Auto) 0.3 L (2-4) % Baso % (Auto) 0.2 (0-2) % Neut # (Auto) 83392 H (2888-9402) /uL Lymph # (Auto) 400 L (8643-9566) /uL [place]iss # (Auto) 300 (0-900) /uL Eos # (Auto) 0 (0-450) /uL Baso # (Auto) 0 (0-100) /uL Sodium 133 L (137-145) mmol/L Potassium 4.2 (3.4-5.1) mmol/L Chloride 99 (98-107) mmol/L Carbon Dioxide 24 (22-32) mmol/L BUN 29 H (9-20) mg/dL Creatinine 1.00 (0.66-1.25) mg/dL Estimated GFR > 60.0 (>60) mL/min BUN/Creatinine Ratio 29.0 H (6-22) Glucose 90 (80-110) mg/dL Lactate (0.7-2.1) mmol/L Calcium 7.3 L (8.4-10.2) mg/dL Magnesium (1.6-2.3) mg/dL Total Bilirubin 1.5 H (0.2-1.3) mg/dL AST 22 (17-59) IU/L ALT 29 (21-72) IU/L Alkaline Phosphatase 63 (38-126) U/L Total Protein 5.7 L (6.3-8.2) g/dL Albumin 3.1 L (3.5-5.0) g/dL Globulin 2.6 (1.7-4.1) g/dL Albumin/Globulin Ratio 1.2 (1.0-2.8) Lipase (23-300) U/L Procalcitonin (<0.5) ng/mL Urine Color Urine Appearance Urine pH (4.5-8.0) Ur Specific [place] (1.000-1.035) Urine Protein (Negative) Urine Glucose (UA) (Negative) g/dL Urine Ketones (NEGATIVE) Urine Occult Blood (Negative) Urine Nitrate (Negative) Urine Bilirubin (NEGATIVE) Urine Urobilinogen (0.2) E.U./dL Ur Leukocyte Esterase (NEGATIVE) Urine RBC (0-5/HPF) Urine WBC (0-5/HPF) Urine Bacteria (None) Ur Culture Indicated? Chlamy pneumoniae PCR (Not Detect) Adenovirus (PCR) (Not Detect) B.parapertussis DNA PCR (Not Detect) Coronavirus OC43 (PCR) (Not Detect) Coronavirus HKU1 (PCR) (Not Detect) Coronavirus 229E (PCR) (Not Detect) Coronavirus NL63 (PCR) (Not Detect) Human Metapneumovir PCR (Not Detect) Influenza Type A (PCR) (Not Detect) Influenza Type B (PCR) (Not Detect) Influenza A & B (PCR) Negative (Negative) M. pneumoniae (PCR) (Not Detect) Parainfluenza 1 (PCR) (Not Detect) Parainfluenza 2 (PCR) (Not Detect) Parainfluenza 3 (PCR) (Not Detect) Parainfluenza 4 (PCR) (Not Detect) RSV (PCR) (Not Detect) Entero/Rhino (PCR) (Not Detect) 11/25/18 11/25/18 11/25/18 Range/Units 07:48 07:48 07:48 WBC (4.5-11.0) X10^3/uL RBC (4.5-5.9) X10^6/uL Hgb (13.5-17.5) g/dL Hct (41-53) % MCV (80-100) fL MCH (26-34) PG MCHC (30-36) % RDW (11.6-14.8) % Plt Count (150-400) X10^3/uL Neut % (Auto) (50-75) % Lymph % (Auto) (25-40) % Prentiss % (Auto) (3-14) % Eos % (Auto) (2-4) % Baso % (Auto) (0-2) % Neut # (Auto) (4220-4541) /uL Lymph # (Auto) (9105-6459) /uL [place]iss # (Auto) (0-900) /uL Eos # (Auto) (0-450) /uL Baso # (Auto) (0-100) /uL Sodium (137-145) mmol/L Potassium (3.4-5.1) mmol/L Chloride (98-107) mmol/L Carbon Dioxide (22-32) mmol/L BUN (9-20) mg/dL Creatinine (0.66-1.25) mg/dL Estimated GFR (>60) mL/min BUN/Creatinine Ratio (6-22) Glucose (80-110) mg/dL Lactate 1.8 (0.7-2.1) mmol/L Calcium (8.4-10.2) mg/dL Magnesium (1.6-2.3) mg/dL Total Bilirubin (0.2-1.3) mg/dL AST (17-59) IU/L ALT (21-72) IU/L Alkaline Phosphatase (38-126) U/L Total Protein (6.3-8.2) g/dL Albumin (3.5-5.0) g/dL Globulin (1.7-4.1) g/dL Albumin/Globulin Ratio (1.0-2.8) Lipase 22 L (23-300) U/L Procalcitonin 0.13 (<0.5) ng/mL Urine Color Urine Appearance Urine pH (4.5-8.0) Ur Specific [place] (1.000-1.035) Urine Protein (Negative) Urine Glucose (UA) (Negative) g/dL Urine Ketones (NEGATIVE) Urine Occult Blood (Negative) Urine Nitrate (Negative) Urine Bilirubin (NEGATIVE) Urine Urobilinogen (0.2) E.U./dL Ur Leukocyte Esterase (NEGATIVE) Urine RBC (0-5/HPF) Urine WBC (0-5/HPF) Urine Bacteria (None) Ur Culture Indicated? Chlamy pneumoniae PCR (Not Detect) Adenovirus (PCR) (Not Detect) B.parapertussis DNA PCR (Not Detect) Coronavirus OC43 (PCR) (Not Detect) Coronavirus HKU1 (PCR) (Not Detect) Coronavirus 229E (PCR) (Not Detect) Coronavirus NL63 (PCR) (Not Detect) Human Metapneumovir PCR (Not Detect) Influenza Type A (PCR) (Not Detect) Influenza Type B (PCR) (Not Detect) Influenza A & B (PCR) (Negative) M. pneumoniae (PCR) (Not Detect) Parainfluenza 1 (PCR) (Not Detect) Parainfluenza 2 (PCR) (Not Detect) Parainfluenza 3 (PCR) (Not Detect) Parainfluenza 4 (PCR) (Not Detect) RSV (PCR) (Not Detect) Entero/Rhino (PCR) (Not Detect) 11/25/18 11/25/18 11/26/18 Range/Units 10:17 15:17 05:34 WBC 8.4 (4.5-11.0) X10^3/uL RBC 3.94 L (4.5-5.9) X10^6/uL Hgb 12.4 L (13.5-17.5) g/dL Hct 36.5 L (41-53) % MCV 92.6 (80-100) fL MCH 31.3 (26-34) PG MCHC 33.8 (30-36) % RDW 12.8 (11.6-14.8) % Plt Count 96 L (150-400) X10^3/uL Neut % (Auto) 83.9 H (50-75) % Lymph % (Auto) 6.2 L (25-40) % [place] % (Auto) 8.9 (3-14) % Eos % (Auto) 0.9 L (2-4) % Baso % (Auto) 0.1 (0-2) % Neut # (Auto) 7000 (4350-9345) /uL Lymph # (Auto) 500 L (4138-3974) /uL P[place]iss # (Auto) 700 (0-900) /uL Eos # (Auto) 100 (0-450) /uL Baso # (Auto) 0 (0-100) /uL Sodium (137-145) mmol/L Potassium (3.4-5.1) mmol/L Chloride (98-107) mmol/L Carbon Dioxide (22-32) mmol/L BUN (9-20) mg/dL Creatinine (0.66-1.25) mg/dL Estimated GFR (>60) mL/min BUN/Creatinine Ratio (6-22) Glucose (80-110) mg/dL Lactate (0.7-2.1) mmol/L Calcium (8.4-10.2) mg/dL Magnesium (1.6-2.3) mg/dL Total Bilirubin (0.2-1.3) mg/dL AST (17-59) IU/L ALT (21-72) IU/L Alkaline Phosphatase (38-126) U/L Total Protein (6.3-8.2) g/dL Albumin (3.5-5.0) g/dL Globulin (1.7-4.1) g/dL Albumin/Globulin Ratio (1.0-2.8) Lipase (23-300) U/L Procalcitonin (<0.5) ng/mL Urine Color Yellow Urine Appearance Cloudy Urine pH 5.5 (4.5-8.0) Ur Specific [place] 1.020 (1.000-1.035) Urine Protein 1+ H (Negative) Urine Glucose (UA) Negative (Negative) g/dL Urine Ketones Trace H (NEGATIVE) Urine Occult Blood 3+ H (Negative) Urine Nitrate Negative (Negative) Urine Bilirubin Negative (NEGATIVE) Urine Urobilinogen 0.2 (0.2) E.U./dL Ur Leukocyte Esterase Trace H (NEGATIVE) Urine RBC 10-30/hpf H (0-5/HPF) Urine WBC 1-5/hpf (0-5/HPF) Urine Bacteria None seen (None) Ur Culture Indicated? Cult not indicated Chlamy pneumoniae PCR Not detected (Not Detect) Adenovirus (PCR) Not detected (Not Detect) B.parapertussis DNA PCR Not detected (Not Detect) Coronavirus OC43 (PCR) Not detected (Not Detect) Coronavirus HKU1 (PCR) Not detected (Not Detect) Coronavirus 229E (PCR) Not detected (Not Detect) Coronavirus NL63 (PCR) Not detected (Not Detect) Human Metapneumovir PCR Not detected (Not Detect) Influenza Type A (PCR) Not detected (Not Detect) Influenza Type B (PCR) Not detected (Not Detect) Influenza A & B (PCR) (Negative) M. pneumoniae (PCR) Not detected (Not Detect) Parainfluenza 1 (PCR) Not detected (Not Detect) Parainfluenza 2 (PCR) Not detected (Not Detect) Parainfluenza 3 (PCR) Not detected (Not Detect) Parainfluenza 4 (PCR) Not detected (Not Detect) RSV (PCR) Not detected (Not Detect) Entero/Rhino (PCR) Not detected (Not Detect) 11/26/18 11/26/18 11/27/18 Range/Units 05:34 05:34 07:55 WBC 4.8 (4.5-11.0) X10^3/uL RBC 3.66 L (4.5-5.9) X10^6/uL Hgb 11.4 L (13.5-17.5) g/dL Hct 34.0 L (41-53) % MCV 92.8 (80-100) fL MCH 31.3 (26-34) PG MCHC 33.7 (30-36) % RDW 12.8 (11.6-14.8) % Plt Count 120 L (150-400) X10^3/uL Neut % (Auto) 75.0 (50-75) % Lymph % (Auto) 11.7 L (25-40) % [place] % (Auto) 10.0 (3-14) % Eos % (Auto) 3.1 (2-4) % Baso % (Auto) 0.2 (0-2) % Neut # (Auto) 3600 (2229-3829) /uL Lymph # (Auto) 600 L (5498-6067) /uL [place] # (Auto) 500 (0-900) /uL Eos # (Auto) 100 (0-450) /uL Baso # (Auto) 0 (0-100) /uL Sodium 134 L (137-145) mmol/L Potassium 4.6 (3.4-5.1) mmol/L Chloride 102 (98-107) mmol/L Carbon Dioxide 27 (22-32) mmol/L BUN 21 H (9-20) mg/dL Creatinine 1.00 (0.66-1.25) mg/dL Estimated GFR > 60.0 (>60) mL/min BUN/Creatinine Ratio 21.0 (6-22) Glucose 102 (80-110) mg/dL Lactate (0.7-2.1) mmol/L Calcium 7.3 L (8.4-10.2) mg/dL Magnesium (1.6-2.3) mg/dL Total Bilirubin (0.2-1.3) mg/dL AST (17-59) IU/L ALT (21-72) IU/L Alkaline Phosphatase (38-126) U/L Total Protein (6.3-8.2) g/dL Albumin (3.5-5.0) g/dL Globulin (1.7-4.1) g/dL Albumin/Globulin Ratio (1.0-2.8) Lipase (23-300) U/L Procalcitonin 5.13 H (<0.5) ng/mL Urine Color Urine Appearance Urine pH (4.5-8.0) Ur Specific [place] (1.000-1.035) Urine Protein (Negative) Urine Glucose (UA) (Negative) g/dL Urine Ketones (NEGATIVE) Urine Occult Blood (Negative) Urine Nitrate (Negative) Urine Bilirubin (NEGATIVE) Urine Urobilinogen (0.2) E.U./dL Ur Leukocyte Esterase (NEGATIVE) Urine RBC (0-5/HPF) Urine WBC (0-5/HPF) Urine Bacteria (None) Ur Culture Indicated? Chlamy pneumoniae PCR (Not Detect) Adenovirus (PCR) (Not Detect) B.parapertussis DNA PCR (Not Detect) Coronavirus OC43 (PCR) (Not Detect) Coronavirus HKU1 (PCR) (Not Detect) Coronavirus 229E (PCR) (Not Detect) Coronavirus NL63 (PCR) (Not Detect) Human Metapneumovir PCR (Not Detect) Influenza Type A (PCR) (Not Detect) Influenza Type B (PCR) (Not Detect) Influenza A & B (PCR) (Negative) M. pneumoniae (PCR) (Not Detect) Parainfluenza 1 (PCR) (Not Detect) Parainfluenza 2 (PCR) (Not Detect) Parainfluenza 3 (PCR) (Not Detect) Parainfluenza 4 (PCR) (Not Detect) RSV (PCR) (Not Detect) Entero/Rhino (PCR) (Not Detect) 11/27/18 11/27/18 Range/Units 07:55 07:55 WBC (4.5-11.0) X10^3/uL RBC (4.5-5.9) X10^6/uL Hgb (13.5-17.5) g/dL Hct (41-53) % MCV (80-100) fL MCH (26-34) PG MCHC (30-36) % RDW (11.6-14.8) % Plt Count (150-400) X10^3/uL Neut % (Auto) (50-75) % Lymph % (Auto) (25-40) % [place] % (Auto) (3-14) % Eos % (Auto) (2-4) % Baso % (Auto) (0-2) % Neut # (Auto) (1306-5254) /uL Lymph # (Auto) (9480-2715) /uL [place] # (Auto) (0-900) /uL Eos # (Auto) (0-450) /uL Baso # (Auto) (0-100) /uL Sodium 138 (137-145) mmol/L Potassium 3.7 (3.4-5.1) mmol/L Chloride 106 (98-107) mmol/L Carbon Dioxide 25 (22-32) mmol/L BUN 12 (9-20) mg/dL Creatinine 0.80 (0.66-1.25) mg/dL Estimated GFR > 60.0 (>60) mL/min BUN/Creatinine Ratio 15.0 (6-22) Glucose 96 (80-110) mg/dL Lactate (0.7-2.1) mmol/L Calcium 7.7 L (8.4-10.2) mg/dL Magnesium 2.0 (1.6-2.3) mg/dL Total Bilirubin (0.2-1.3) mg/dL AST (17-59) IU/L ALT (21-72) IU/L Alkaline Phosphatase (38-126) U/L Total Protein (6.3-8.2) g/dL Albumin (3.5-5.0) g/dL Globulin (1.7-4.1) g/dL Albumin/Globulin Ratio (1.0-2.8) Lipase (23-300) U/L Procalcitonin 2.75 H (<0.5) ng/mL Urine Color Urine Appearance Urine pH (4.5-8.0) Ur Specific [place] (1.000-1.035) Urine Protein (Negative) Urine Glucose (UA) (Negative) g/dL Urine Ketones (NEGATIVE) Urine Occult Blood (Negative) Urine Nitrate (Negative) Urine Bilirubin (NEGATIVE) Urine Urobilinogen (0.2) E.U./dL Ur Leukocyte Esterase (NEGATIVE) Urine RBC (0-5/HPF) Urine WBC (0-5/HPF) Urine Bacteria (None) Ur Culture Indicated? Chlamy pneumoniae PCR (Not Detect) Adenovirus (PCR) (Not Detect) B.parapertussis DNA PCR (Not Detect) Coronavirus OC43 (PCR) (Not Detect) Coronavirus HKU1 (PCR) (Not Detect) Coronavirus 229E (PCR) (Not Detect) Coronavirus NL63 (PCR) (Not Detect) Human Metapneumovir PCR (Not Detect) Influenza Type A (PCR) (Not Detect) Influenza Type B (PCR) (Not Detect) Influenza A & B (PCR) (Negative) M. pneumoniae (PCR) (Not Detect) Parainfluenza 1 (PCR) (Not Detect) Parainfluenza 2 (PCR) (Not Detect) Parainfluenza 3 (PCR) (Not Detect) Parainfluenza 4 (PCR) (Not Detect) RSV (PCR) (Not Detect) Entero/Rhino (PCR) (Not Detect) <Antonieta Kaminski, DO - Last Filed: 11/25/18 11:29> Lab Data Attestation: I reviewed the patient's lab results. Lab Results 11/25/18 11/25/18 11/25/18 Range/Units 06:40 06:55 06:55 WBC 11.1 H (4.5-11.0) X10^3/uL RBC 4.89 (4.5-5.9) X10^6/uL Hgb 15.0 (13.5-17.5) g/dL Hct 45.0 (41-53) % MCV 92.0 (80-100) fL MCH 30.7 (26-34) PG MCHC 33.4 (30-36) % RDW 12.7 (11.6-14.8) % Plt Count 138 L (150-400) X10^3/uL Neut % (Auto) 93.4 H (50-75) % Lymph % (Auto) 3.3 L (25-40) % [place] % (Auto) 2.8 L (3-14) % Eos % (Auto) 0.3 L (2-4) % Baso % (Auto) 0.2 (0-2) % Neut # (Auto) 41604 H (4332-0839) /uL Lymph # (Auto) 400 L (6305-8397) /uL [place] # (Auto) 300 (0-900) /uL Eos # (Auto) 0 (0-450) /uL Baso # (Auto) 0 (0-100) /uL Sodium 133 L (137-145) mmol/L Potassium 4.2 (3.4-5.1) mmol/L Chloride 99 (98-107) mmol/L Carbon Dioxide 24 (22-32) mmol/L BUN 29 H (9-20) mg/dL Creatinine 1.00 (0.66-1.25) mg/dL Estimated GFR > 60.0 (>60) mL/min BUN/Creatinine Ratio 29.0 H (6-22) Glucose 90 (80-110) mg/dL Lactate (0.7-2.1) mmol/L Calcium 7.3 L (8.4-10.2) mg/dL Magnesium (1.6-2.3) mg/dL Total Bilirubin 1.5 H (0.2-1.3) mg/dL AST 22 (17-59) IU/L ALT 29 (21-72) IU/L Alkaline Phosphatase 63 (38-126) U/L Total Protein 5.7 L (6.3-8.2) g/dL Albumin 3.1 L (3.5-5.0) g/dL Globulin 2.6 (1.7-4.1) g/dL Albumin/Globulin Ratio 1.2 (1.0-2.8) Lipase (23-300) U/L Procalcitonin (<0.5) ng/mL Urine Color Urine Appearance Urine pH (4.5-8.0) Ur Specific [place] (1.000-1.035) Urine Protein (Negative) Urine Glucose (UA) (Negative) g/dL Urine Ketones (NEGATIVE) Urine Occult Blood (Negative) Urine Nitrate (Negative) Urine Bilirubin (NEGATIVE) Urine Urobilinogen (0.2) E.U./dL Ur Leukocyte Esterase (NEGATIVE) Urine RBC (0-5/HPF) Urine WBC (0-5/HPF) Urine Bacteria (None) Ur Culture Indicated? Chlamy pneumoniae PCR (Not Detect) Adenovirus (PCR) (Not Detect) B.parapertussis DNA PCR (Not Detect) Coronavirus OC43 (PCR) (Not Detect) Coronavirus HKU1 (PCR) (Not Detect) Coronavirus 229E (PCR) (Not Detect) Coronavirus NL63 (PCR) (Not Detect) Human Metapneumovir PCR (Not Detect) Influenza Type A (PCR) (Not Detect) Influenza Type B (PCR) (Not Detect) Influenza A & B (PCR) Negative (Negative) M. pneumoniae (PCR) (Not Detect) Parainfluenza 1 (PCR) (Not Detect) Parainfluenza 2 (PCR) (Not Detect) Parainfluenza 3 (PCR) (Not Detect) Parainfluenza 4 (PCR) (Not Detect) RSV (PCR) (Not Detect) Entero/Rhino (PCR) (Not Detect) 11/25/18 11/25/18 11/25/18 Range/Units 07:48 07:48 07:48 WBC (4.5-11.0) X10^3/uL RBC (4.5-5.9) X10^6/uL Hgb (13.5-17.5) g/dL Hct (41-53) % MCV (80-100) fL MCH (26-34) PG MCHC (30-36) % RDW (11.6-14.8) % Plt Count (150-400) X10^3/uL Neut % (Auto) (50-75) % Lymph % (Auto) (25-40) % [place] % (Auto) (3-14) % Eos % (Auto) (2-4) % Baso % (Auto) (0-2) % Neut # (Auto) (2457-4065) /uL Lymph # (Auto) (7472-7306) /uL [place] # (Auto) (0-900) /uL Eos # (Auto) (0-450) /uL Baso # (Auto) (0-100) /uL Sodium (137-145) mmol/L Potassium (3.4-5.1) mmol/L Chloride (98-107) mmol/L Carbon Dioxide (22-32) mmol/L BUN (9-20) mg/dL Creatinine (0.66-1.25) mg/dL Estimated GFR (>60) mL/min BUN/Creatinine Ratio (6-22) Glucose (80-110) mg/dL Lactate 1.8 (0.7-2.1) mmol/L Calcium (8.4-10.2) mg/dL Magnesium (1.6-2.3) mg/dL Total Bilirubin (0.2-1.3) mg/dL AST (17-59) IU/L ALT (21-72) IU/L Alkaline Phosphatase (38-126) U/L Total Protein (6.3-8.2) g/dL Albumin (3.5-5.0) g/dL Globulin (1.7-4.1) g/dL Albumin/Globulin Ratio (1.0-2.8) Lipase 22 L (23-300) U/L Procalcitonin 0.13 (<0.5) ng/mL Urine Color Urine Appearance Urine pH (4.5-8.0) Ur Specific [place] (1.000-1.035) Urine Protein (Negative) Urine Glucose (UA) (Negative) g/dL Urine Ketones (NEGATIVE) Urine Occult Blood (Negative) Urine Nitrate (Negative) Urine Bilirubin (NEGATIVE) Urine Urobilinogen (0.2) E.U./dL Ur Leukocyte Esterase (NEGATIVE) Urine RBC (0-5/HPF) Urine WBC (0-5/HPF) Urine Bacteria (None) Ur Culture Indicated? Chlamy pneumoniae PCR (Not Detect) Adenovirus (PCR) (Not Detect) B.parapertussis DNA PCR (Not Detect) Coronavirus OC43 (PCR) (Not Detect) Coronavirus HKU1 (PCR) (Not Detect) Coronavirus 229E (PCR) (Not Detect) Coronavirus NL63 (PCR) (Not Detect) Human Metapneumovir PCR (Not Detect) Influenza Type A (PCR) (Not Detect) Influenza Type B (PCR) (Not Detect) Influenza A & B (PCR) (Negative) M. pneumoniae (PCR) (Not Detect) Parainfluenza 1 (PCR) (Not Detect) Parainfluenza 2 (PCR) (Not Detect) Parainfluenza 3 (PCR) (Not Detect) Parainfluenza 4 (PCR) (Not Detect) RSV (PCR) (Not Detect) Entero/Rhino (PCR) (Not Detect) 11/25/18 11/25/18 11/26/18 Range/Units 10:17 15:17 05:34 WBC 8.4 (4.5-11.0) X10^3/uL RBC 3.94 L (4.5-5.9) X10^6/uL Hgb 12.4 L (13.5-17.5) g/dL Hct 36.5 L (41-53) % MCV 92.6 (80-100) fL MCH 31.3 (26-34) PG MCHC 33.8 (30-36) % RDW 12.8 (11.6-14.8) % Plt Count 96 L (150-400) X10^3/uL Neut % (Auto) 83.9 H (50-75) % Lymph % (Auto) 6.2 L (25-40) % [place] % (Auto) 8.9 (3-14) % Eos % (Auto) 0.9 L (2-4) % Baso % (Auto) 0.1 (0-2) % Neut # (Auto) 7000 (4425-2260) /uL Lymph # (Auto) 500 L (5344-5574) /uL [place] # (Auto) 700 (0-900) /uL Eos # (Auto) 100 (0-450) /uL Baso # (Auto) 0 (0-100) /uL Sodium (137-145) mmol/L Potassium (3.4-5.1) mmol/L Chloride (98-107) mmol/L Carbon Dioxide (22-32) mmol/L BUN (9-20) mg/dL Creatinine (0.66-1.25) mg/dL Estimated GFR (>60) mL/min BUN/Creatinine Ratio (6-22) Glucose (80-110) mg/dL Lactate (0.7-2.1) mmol/L Calcium (8.4-10.2) mg/dL Magnesium (1.6-2.3) mg/dL Total Bilirubin (0.2-1.3) mg/dL AST (17-59) IU/L ALT (21-72) IU/L Alkaline Phosphatase (38-126) U/L Total Protein (6.3-8.2) g/dL Albumin (3.5-5.0) g/dL Globulin (1.7-4.1) g/dL Albumin/Globulin Ratio (1.0-2.8) Lipase (23-300) U/L Procalcitonin (<0.5) ng/mL Urine Color Yellow Urine Appearance Cloudy Urine pH 5.5 (4.5-8.0) Ur Specific [place] 1.020 (1.000-1.035) Urine Protein 1+ H (Negative) Urine Glucose (UA) Negative (Negative) g/dL Urine Ketones Trace H (NEGATIVE) Urine Occult Blood 3+ H (Negative) Urine Nitrate Negative (Negative) Urine Bilirubin Negative (NEGATIVE) Urine Urobilinogen 0.2 (0.2) E.U./dL Ur Leukocyte Esterase Trace H (NEGATIVE) Urine RBC 10-30/hpf H (0-5/HPF) Urine WBC 1-5/hpf (0-5/HPF) Urine Bacteria None seen (None) Ur Culture Indicated? Cult not indicated Chlamy pneumoniae PCR Not detected (Not Detect) Adenovirus (PCR) Not detected (Not Detect) B.parapertussis DNA PCR Not detected (Not Detect) Coronavirus OC43 (PCR) Not detected (Not Detect) Coronavirus HKU1 (PCR) Not detected (Not Detect) Coronavirus 229E (PCR) Not detected (Not Detect) Coronavirus NL63 (PCR) Not detected (Not Detect) Human Metapneumovir PCR Not detected (Not Detect) Influenza Type A (PCR) Not detected (Not Detect) Influenza Type B (PCR) Not detected (Not Detect) Influenza A & B (PCR) (Negative) M. pneumoniae (PCR) Not detected (Not Detect) Parainfluenza 1 (PCR) Not detected (Not Detect) Parainfluenza 2 (PCR) Not detected (Not Detect) Parainfluenza 3 (PCR) Not detected (Not Detect) Parainfluenza 4 (PCR) Not detected (Not Detect) RSV (PCR) Not detected (Not Detect) Entero/Rhino (PCR) Not detected (Not Detect) 11/26/18 11/26/18 11/27/18 Range/Units 05:34 05:34 07:55 WBC 4.8 (4.5-11.0) X10^3/uL RBC 3.66 L (4.5-5.9) X10^6/uL Hgb 11.4 L (13.5-17.5) g/dL Hct 34.0 L (41-53) % MCV 92.8 (80-100) fL MCH 31.3 (26-34) PG MCHC 33.7 (30-36) % RDW 12.8 (11.6-14.8) % Plt Count 120 L (150-400) X10^3/uL Neut % (Auto) 75.0 (50-75) % Lymph % (Auto) 11.7 L (25-40) % [place] % (Auto) 10.0 (3-14) % Eos % (Auto) 3.1 (2-4) % Baso % (Auto) 0.2 (0-2) % Neut # (Auto) 3600 (7855-5265) /uL Lymph # (Auto) 600 L (9044-0636) /uL [place] # (Auto) 500 (0-900) /uL Eos # (Auto) 100 (0-450) /uL Baso # (Auto) 0 (0-100) /uL Sodium 134 L (137-145) mmol/L Potassium 4.6 (3.4-5.1) mmol/L Chloride 102 (98-107) mmol/L Carbon Dioxide 27 (22-32) mmol/L BUN 21 H (9-20) mg/dL Creatinine 1.00 (0.66-1.25) mg/dL Estimated GFR > 60.0 (>60) mL/min BUN/Creatinine Ratio 21.0 (6-22) Glucose 102 (80-110) mg/dL Lactate (0.7-2.1) mmol/L Calcium 7.3 L (8.4-10.2) mg/dL Magnesium (1.6-2.3) mg/dL Total Bilirubin (0.2-1.3) mg/dL AST (17-59) IU/L ALT (21-72) IU/L Alkaline Phosphatase (38-126) U/L Total Protein (6.3-8.2) g/dL Albumin (3.5-5.0) g/dL Globulin (1.7-4.1) g/dL Albumin/Globulin Ratio (1.0-2.8) Lipase (23-300) U/L Procalcitonin 5.13 H (<0.5) ng/mL Urine Color Urine Appearance Urine pH (4.5-8.0) Ur Specific [place] (1.000-1.035) Urine Protein (Negative) Urine Glucose (UA) (Negative) g/dL Urine Ketones (NEGATIVE) Urine Occult Blood (Negative) Urine Nitrate (Negative) Urine Bilirubin (NEGATIVE) Urine Urobilinogen (0.2) E.U./dL Ur Leukocyte Esterase (NEGATIVE) Urine RBC (0-5/HPF) Urine WBC (0-5/HPF) Urine Bacteria (None) Ur Culture Indicated? Chlamy pneumoniae PCR (Not Detect) Adenovirus (PCR) (Not Detect) B.parapertussis DNA PCR (Not Detect) Coronavirus OC43 (PCR) (Not Detect) Coronavirus HKU1 (PCR) (Not Detect) Coronavirus 229E (PCR) (Not Detect) Coronavirus NL63 (PCR) (Not Detect) Human Metapneumovir PCR (Not Detect) Influenza Type A (PCR) (Not Detect) Influenza Type B (PCR) (Not Detect) Influenza A & B (PCR) (Negative) M. pneumoniae (PCR) (Not Detect) Parainfluenza 1 (PCR) (Not Detect) Parainfluenza 2 (PCR) (Not Detect) Parainfluenza 3 (PCR) (Not Detect) Parainfluenza 4 (PCR) (Not Detect) RSV (PCR) (Not Detect) Entero/Rhino (PCR) (Not Detect) 11/27/18 11/27/18 Range/Units 07:55 07:55 WBC (4.5-11.0) X10^3/uL RBC (4.5-5.9) X10^6/uL Hgb (13.5-17.5) g/dL Hct (41-53) % MCV (80-100) fL MCH (26-34) PG MCHC (30-36) % RDW (11.6-14.8) % Plt Count (150-400) X10^3/uL Neut % (Auto) (50-75) % Lymph % (Auto) (25-40) % [place] % (Auto) (3-14) % Eos % (Auto) (2-4) % Baso % (Auto) (0-2) % Neut # (Auto) (1911-3423) /uL Lymph # (Auto) (8962-0213) /uL [place] # (Auto) (0-900) /uL Eos # (Auto) (0-450) /uL Baso # (Auto) (0-100) /uL Sodium 138 (137-145) mmol/L Potassium 3.7 (3.4-5.1) mmol/L Chloride 106 (98-107) mmol/L Carbon Dioxide 25 (22-32) mmol/L BUN 12 (9-20) mg/dL Creatinine 0.80 (0.66-1.25) mg/dL Estimated GFR > 60.0 (>60) mL/min BUN/Creatinine Ratio 15.0 (6-22) Glucose 96 (80-110) mg/dL Lactate (0.7-2.1) mmol/L Calcium 7.7 L (8.4-10.2) mg/dL Magnesium 2.0 (1.6-2.3) mg/dL Total Bilirubin (0.2-1.3) mg/dL AST (17-59) IU/L ALT (21-72) IU/L Alkaline Phosphatase (38-126) U/L Total Protein (6.3-8.2) g/dL Albumin (3.5-5.0) g/dL Globulin (1.7-4.1) g/dL Albumin/Globulin Ratio (1.0-2.8) Lipase (23-300) U/L Procalcitonin 2.75 H (<0.5) ng/mL Urine Color Urine Appearance Urine pH (4.5-8.0) Ur Specific [place] (1.000-1.035) Urine Protein (Negative) Urine Glucose (UA) (Negative) g/dL Urine Ketones (NEGATIVE) Urine Occult Blood (Negative) Urine Nitrate (Negative) Urine Bilirubin (NEGATIVE) Urine Urobilinogen (0.2) E.U./dL Ur Leukocyte Esterase (NEGATIVE) Urine RBC (0-5/HPF) Urine WBC (0-5/HPF) Urine Bacteria (None) Ur Culture Indicated? Chlamy pneumoniae PCR (Not Detect) Adenovirus (PCR) (Not Detect) B.parapertussis DNA PCR (Not Detect) Coronavirus OC43 (PCR) (Not Detect) Coronavirus HKU1 (PCR) (Not Detect) Coronavirus 229E (PCR) (Not Detect) Coronavirus NL63 (PCR) (Not Detect) Human Metapneumovir PCR (Not Detect) Influenza Type A (PCR) (Not Detect) Influenza Type B (PCR) (Not Detect) Influenza A & B (PCR) (Negative) M. pneumoniae (PCR) (Not Detect) Parainfluenza 1 (PCR) (Not Detect) Parainfluenza 2 (PCR) (Not Detect) Parainfluenza 3 (PCR) (Not Detect) Parainfluenza 4 (PCR) (Not Detect) RSV (PCR) (Not Detect) Entero/Rhino (PCR) (Not Detect) Imaging Data Chest x-ray: My impression: hazy appearance on right chest. Radiologist's impression: Costa Le Kate 68 M [address] [address] XRay Report Signed Patient: Costa Le [facility]#: [id number] : 1950Acct:[id number] Age/Sex: 68 / MDate of Service: 11/25/18 Loc: ED Accession Number: [id number] Procedure: XR chest 1V Ordering Provider: Melissa King MD PROCEDURE: XR CHEST 1V INDICATIONS: dyspnea, cough, fever TECHNIQUE: One view of the chest was acquired. COMPARISON: None. FINDINGS: Surgical changes and devices: None. Lungs and pleura: There is infiltrate in right lung suspicious for pneumonia. No pleural effusions or pneumothorax. Mediastinum: Mediastinal contours appear normal. Heart size is normal. Bones and chest wall: No suspicious bony lesions. Overlying soft tissues appear unremarkable. IMPRESSION: Suspect right pneumonia. Dictated by: Danika Ireland M.D. on 11/25/2018 at 8:37 Approved by: Danika Ireland M.D. on 11/25/2018 at 8:37 US - abdomen: Radiologist's impression: [address] [address] Ultrasound Report Signed Patient: Costa Le [facility]#: [id number] : 1950Acct:[id number] Age/Sex: 68 / MDate of Service: 11/25/18 Loc: ED Accession Number: [id number] Procedure: US abdomen complete Ordering Provider: Antonieta Kaminski D.O. PROCEDURE: US ABDOMEN COMPLETE INDICATIONS: COUGH, SHORTNESS OF BREATH, ELEVATED BILIRUBIN TECHNIQUE: Real-time scanning was performed of the abdominal and retroperitoneal organs, with image documentation. COMPARISON: None. FINDINGS: Liver: Liver is normal in size. Left hepatic lobe cyst measuring 17 mm. Gallbladder: Surgically absent Biliary ducts: Intrahepatic bile ducts are non-dilated. Extrahepatic bile duct caliber measures 7.3 mm. Normal is 6-7 mm or less in diameter, or 10 mm or less post-cholecystectomy. Pancreas: Visualized portions of the pancreas are sonographically normal. Spleen: Spleen is normal in size and homogeneous in echotexture. Kidneys: Kidneys are normal in size and echotexture. Right kidney measures 10.3 cm long; left kidney measures 12.2 cm long. Moderate bilateral hydronephrosis. No solid masses. Aorta: Visualized aorta is normal in caliber at less than 3 cm. Iliacs: Proximal common iliac arteries are normal in caliber at less than 2.5 cm. IVC: Intrahepatic inferior vena cava is patent. Miscellaneous: No free abdominal fluid. Bilateral ureteral jets are seen within the urinary bladder. IMPRESSION: 1. Bilateral hydronephrosis. Dictated by: Ernestine Julian M.D. on 11/25/2018 at 9:09 Approved by: Ernestine Julian M.D. on 11/25/2018 at 9:10 MDM Narrative Medical decision making narrative: Patient signed out to myself by Dr. King. Suspect pneumonia, patient has some mild wheeze and crackles on the right and his chest x-ray although no clear definite infiltrate does appear hazy on that side. Patient had a fever here in the emergency department, he was given ibuprofen and Tylenol. His white count is 11, his bilirubin is elevated. Patient pressure has been consistently on the low side with a pulse in the 90s. He is not on any beta-blockers or other medications that should decrease his heart rate Or ability to vaso constricted. With elevation of bilirubin ultrasound of the abdomen was ordered. Patient did have a hernia repair, he has been having bowel movements. Has not had any nausea or vomiting. He states his belly is a little more distended according to him and his brother. He has had a lot a cough and upper respiratory congestion. Here in the department his oxygen has occasionally dip down to 88 he was placed on oxygen and with mild wheezes was given a breathing treatment. After breathing treatment patient's oxygen improved for about 20 min but then dropped back down to 89%. Patient's chest x-ray does show pneumonia, is white count is 11. He was febrile upon arrival and has improved after ibuprofen and Tylenol. Patient has been persistently hypotensive but does not have any changes to mentation. Discussed with family and patient feel that he would require hospitalization. I discussed with Dr. Holland plan for inpatient admission. Patient received Rocephin initially here in the department. He did have a recent inguinal hernia repair this appears clean dry and intact and does not appear to be source of infection. I suspect he may have had inspiration either during surgery or postsurgical verses a infectious cause. Dr. Holland requests a respiratory panel and dropped precautions. We did discuss my suspicion for a pulmonary embolism is lower for this patient. He has crackles as well as some wheeze on that right side which drives my suspicion. Discharge Plan Departure Patient Disposition: Admitted As Inpatient Clinical Impression: Pneumonia Discharge Date/Time: 11/25/18 10:53 Interventions: ED Discharge Assessment Last Done: 11/25/18 10:53 Instructions: DI for Pneumonia -- Adult, DI for Hernia Repair, DI for Constipation, DI for Urinary Retention in Men Referrals: Costa Millan MD [Primary Care Provider] - Admit Date/Time: 11/25/18 10:32 Admit Provider: Mildred Holland
[2018-11-25] MEDS: SODIUM CHLORIDE 0.9% 1,000 ML 1000 ML IV ×2 (06:45→08:59)
--- NOTE | 2018-11-25 06:48 | ED_ITS ---
HPI - SOB/Dyspnea <Melissa King MD - Last Filed: 11/27/18 20:11> General Chief Complaint: Upper Respiratory Symptoms Stated Complaint: Congestion Time Seen by Provider: 11/25/18 06:41 Source: patient, family and EMS Mode of arrival: EMS Limitations: other (Cognitive limitation) History of Present Illness Patient is brought to the emergency department for cough and shortness of breath. According to medics this has been going on for the last couple days but has been worse tonight. Medics also found the patient to have a temperature of 103?. Patient denies chest pain. He states that he does not know if he has been coughing anything up. He also does not know if he has had any abdominal pain. He just states I do not feel good. Patient denies swelling in his legs. Patient states that he does not have a sore throat. Related Data Home Medications Medication Instructions Recorded Confirmed omeprazole 20 mg tablet,delayed 20 mg PO DAILY 09/23/18 11/26/18 release L-Tyrosine 3 tab PO DAILY 11/25/18 11/25/18 cholecalciferol (vitamin D3) 2,000 unit PO DAILY 11/25/18 11/25/18 [Vitamin D3] cranberry extract 300 mg PO DAILY 11/25/18 11/25/18 garlic extract 1 cap PO DAILY 11/25/18 11/25/18 multivitamin 1 tab PO DAILY 11/25/18 11/25/18 ondansetron 4 mg PO Q6H PRN 11/25/18 11/25/18 vitamin K2 100 meq PO DAILY 11/25/18 11/25/18 Previous Rx's Medication Instructions Recorded oxycodone-acetaminophen [Percocet] 1 tab PO Q4-6H PRN #20 tab 11/23/18 benzonatate 200 mg capsule 200 mg PO TID PRN #30 cap 11/24/18 acetaminophen 650 mg PO Q6HR PRN #30 tab 11/27/18 albuterol sulfate 1 puff INHALATION Q6H PRN #18 gram 11/27/18 amoxicillin-pot clavulanate 1 tab PO BID #10 tab 11/27/18 [Augmentin] docusate sodium 100 mg PO BID #60 cap 11/27/18 guaifenesin 1,200 mg PO BID #10 tab 03/17/19 polyethylene glycol 3350 17 gm PO DAILY PRN #1 pkg 11/27/18 sennosides [senna] 17.2 mg PO BEDTIME PRN #30 tab 11/27/18 tamsulosin [Flomax] 0.4 mg PO DAILY #30 cap 11/27/18 Allergies Allergy/AdvReac Type Severity Reaction Status Date / Time No Known Drug Allergies Allergy Verified 11/25/18 12:48 Review of Systems <Melissa King MD - Last Filed: 11/27/18 20:11> Constitutional Denies chills, Denies fever(s), Denies lethargy and Denies weakness Eyes Denies change in vision, Denies eye discharge, Denies irritation and Denies loss of vision ENT Ears, Nose, Mouth, and Throat: Denies change in voice, Denies neck pain and Denies sore throat Cardiovascular Denies chest pain, Denies irregular heart rhythm, Denies lightheadedness, Denies palpitations, Reports dyspnea, Denies dyspnea on exertion and Denies orthopnea Respiratory Reports cough, Reports dyspnea, Denies dyspnea on exertion and Denies wheezing Gastrointestinal Gastrointestinal: Denies abdominal pain, Denies change in bowel habits, Denies diarrhea, Denies nausea and Denies vomiting Genitourinary Denies hematuria, Denies flank pain, Denies urinary incontinence and Denies urinary urgency Musculoskeletal Denies neck pain Integumentary/Breasts Denies pruritus, Denies erythema, Denies rash and Denies wounds Neurologic Denies confusion, Denies loss of vision and Denies weakness Psychiatric Denies anxiety, Denies confusion, Denies depression, Denies homicidal ideation and Denies suicidal ideation Endocrine Denies palpitations Hematologic/Lymphatic Denies easy bruising Allergic/Immunologic Denies wheezing <Antonieta Kaminski DO - Last Filed: 11/25/18 11:29> Review of Systems ROS Unobtainable: All systems reviewed & are unremarkable except as noted in HPI and below Constitutional Denies fatigue and Reports fever(s) Cardiovascular Denies chest pain, Denies edema, Denies dyspnea and Denies dyspnea on exertion Respiratory Reports chest congestion, Reports cough, Denies hemoptysis, Denies pain on ins piration, Denies dyspnea, Denies dyspnea on exertion, Denies stridor and Denies wheezing Gastrointestinal Gastrointestinal: Denies abdominal pain, Denies change in bowel habits, Reports constipation (last BM overnight. hard stool.), Denies diarrhea, Denies nausea, Denies vomiting and Reports other (healing incision) Genitourinary Denies hematuria, Denies genital pain, Denies dysuria, Denies flank pain and Denies urinary urgency Endocrine Denies fatigue Allergic/Immunologic Denies wheezing PFSH <Melissa King MD - Last Filed: 11/27/18 20:11> Medical History Developmental delay (Acute) Asthma (Acute) GERD (gastroesophageal reflux disease) (Acute) Developmental delay, mild (Acute) GERD (gastroesophageal reflux disease) (Acute) Upper respiratory infection (Acute ~11/2018) Surgical History History of tonsillectomy (Acute) History of hernia repair (Acute) Hx of cholecystectomy (Acute) Family History Mother Dementia Father Pneumonia Social History details: Lives with family household members: family Smoking Status: Never smoker alcohol intake: never Family History Mother Dementia Father Pneumonia Social History details: Lives with family household members: family Smoking Status: Never smoker alcohol intake: never Exam <Melissa King MD - Last Filed: 11/27/18 20:11> Initial Vital Signs Initial Vital Signs: Vital Signs Temperature 102.7 F 11/25/18 06:45 Pulse Rate 95 11/25/18 06:45 Respiratory Rate 23 11/25/18 06:45 Blood Pressure 104/56 11/25/18 06:45 Pulse Oximetry 98 11/25/18 06:45 Const General: cooperative and well developed Nutritional Appearance: well nourished Orientation: alert, awake, oriented x3 and not confused [facility] Head: normocephalic and atraumatic Ears: external ears normal Nose: external nose normal and No nasal discharge Face and sinus: face symmetric and No dry mucous membranes Mouth: oral mucosae normal and moist mucous membranes Teeth and gingiva: dentition normal Throat: tonsils normal and uvula midline Eyes General: appearance normal, both eyes and all related structures Eyelids: eyelids normal Conjunctivae: conjunctivae normal Sclera: sclerae normal Pupils: PERRL EOM: EOM intact bilaterally Neck Neck: normal visual inspection, trachea midline, No lymphadenopathy, No midline deformity and No JVD Lymphatic: No lymphedema Chest Chest: normal inspection of the chest Resp Effort & Inspection: normal respiratory effort, able to speak in complete sentences, no respiratory distress and no use of accessory muscles Auscultation: clear to auscultation bilaterally, no rales, no rhonchi and no wheezes Other: Mild tachypnea Cardio Rate: regular rate Rhythm: regular rhythm Heart Sounds: no click, no gallops, no murmurs and no rubs Pulses: normal peripheral pulses GI Inspection: non-distended Palpation: soft, no hepatosplenomegaly, No guarding, No pulsatile mass and No tender Auscultation: normal bowel sounds Back/Spine/Pelvis Back: No CVA tenderness Cervical Spine: cervical ROM normal and No pain with cervical ROM Thoracic/Lumbar Spine: thoracic and lumbar spine normal to inspection Skin General: no rashes or lesions noted, No jaundice and No petechiae Neuro General: alert, oriented x3, gait normal and no focal motor deficits Speech: speech normal Extrem General: full ROM, no clubbing, cyanosis or edema, no pedal edema and no calf tenderness Psych Appearance: well kempt Mental Status: mental status grossly normal Attitude: cooperative Thought Content: normal and suicidality Judgment: judgment good <Antonieta Kaminski, DO - Last Filed: 11/25/18 11:29> Initial Vital Signs Initial Vital Signs: Vital Signs Temperature 102.7 F 11/25/18 06:45 Pulse Rate 95 11/25/18 06:45 Respiratory Rate 23 11/25/18 06:45 Blood Pressure 104/56 11/25/18 06:45 Pulse Oximetry 98 11/25/18 06:45 GEN: well nourished, well appearing male, alert and oriented, patient appears to be in mild distress. patient has mild to moderate developmental delay. He states that he feels fine but he also per his brother always tells everyone he feels fine. He does feel warm to the touch. HEENT: Atraumatic, pupils are equal round reactive to light, extraocular movements are intact, nares are clear, TMs are clear with no fluid, there is no conjunctival pallor. Throat is clear without any exudates, erythema, tonsillar enlargement or uvular deviation HEART: Regular rate and rhythm without murmur, clicks, rubs. No carotid bruits, pulses are equal in upper and lower extremities LUNGS:Lungs crackles right sided, patient has very mild wheeze on the right upper lobe, no tachypnea or accessory muscle use. Patient is able to speak in full sentences. ABD:bowel sounds Hypoactive but present, soft, non-tender, no guarding, rebound, rigidity, no masses noted, no hepatosplenomegaly, a mildly distended. Patient's right inguinal area has a healing surgical incision that appears clean and intact with no surrounding erythema, no drainage or signs of infection. There is fair amount of bruising surrounding the area No hematomas palpated. Patient is only mild tenderness to touch. :No CVA tenderness MSCL: Non-tender, no muscle atrophy NEURO:CN 2-12 intact, sensation normal Course <Melissa King MD - Last Filed: 11/27/18 20:11> Course Narrative: Patient was worked up for his fever, cough, and dyspnea with l abs, influenza swab, and chest x-ray. He was given a L 0.9 normal saline, as well as Tylenol, and signed out to Dr. Antonieta Kaminski, pending results of workup. Orders Ordered: ED Orders 11/27/18 13:12 Consult to Home Health Routine Discontinued Medications Acetaminophen (Tylenol) 975 mg PO NOW ONE Stop: 11/25/18 07:09 Last Admin: 11/25/18 07:24 Dose: 975 mg Acetaminophen (Tylenol) 650 mg PO Q6HR PRN PRN Reason: As Needed for Fever/Mild Pain Last Admin: 11/27/18 09:15 Dose: 650 mg Admin: 11/26/18 09:33 Dose: 650 mg Albuterol (Ventolin) 2.5 mg INH RTQ2HR PRN PRN Reason: Shortness Of Breath Or Wheezing Last Admin: 11/25/18 19:46 Dose: 2.5 mg Albuterol/Ipratropium (Duoneb) 3 ml INH Q1H PRN PRN Reason: Shortness Of Breath Albuterol/Ipratropium (Duoneb) 3 ml INH [id number] GELY Last Admin: 11/27/18 12:43 Dose: 3 ml Admin: 11/27/18 06:12 Dose: 3 ml Admin: 11/26/18 18:51 Dose: 3 ml Admin: 11/26/18 13:21 Dose: 3 ml Admin: 11/26/18 07:59 Dose: 3 ml Admin: 11/25/18 17:34 Dose: 3 ml Amoxicillin/Clavulanate Potassium (Augmentin 875-125 Mg) [address] [facility] Benzonatate (Tessalon Perles) 100 mg PO TID PRN PRN Reason: Cough Last Admin: 11/27/18 09:15 Dose: 100 mg Admin: 11/27/18 00:31 Dose: 100 mg Admin: 11/26/18 09:33 Dose: 100 mg Admin: 11/25/18 19:56 Dose: 100 mg Calcium Carbonate (Tums) 1,000 mg PO Q4HR PRN PRN Reason: Dyspepsia Docusate Sodium (Colace) [address] [facility] Last Admin: 11/27/18 09:15 Dose: 100 mg Admin: 11/26/18 21:47 Dose: 100 mg Admin: 11/26/18 09:33 Dose: 100 mg Admin: 11/25/18 19:43 Dose: 100 mg Guaifenesin (Mucinex) 1,[address] [facility] Last Admin: 11/27/18 09:15 Dose: 1,200 mg Admin: 11/26/18 21:47 Dose: 1,200 mg Admin: 11/26/18 09:33 Dose: 1,200 mg Admin: 11/25/18 19:43 Dose: 1,200 mg Heparin Sodium (Porcine) (Heparin) 5,[address] [facility] Last Admin: 11/27/18 09:14 Dose: 5,000 unit Admin: 11/26/18 21:47 Dose: 5,000 unit Admin: 11/26/18 09:34 Dose: 5,000 unit Admin: 11/25/18 19:44 Dose: 5,000 unit Sodium Chloride (Normal Saline 0.9%) 1,000 mls @ 1,000 mls/hr IV BOLUS ONE Stop: 11/25/18 07:40 Last Infusion: 11/25/18 08:59 Dose: 0 mls/hr Admin: 11/25/18 06:45 Dose: 1,000 mls/hr Sodium Chloride (Normal Saline 0.9%) 1,000 mls @ 1,000 mls/hr IV BOLUS ONE Stop: 11/25/18 09:16 Last Infusion: 11/25/18 09:41 Dose: 0 mls/hr Admin: 11/25/18 08:59 Dose: 1,000 mls/hr Ceftriaxone Sodium/Dextrose (Rocephin) 1 gm in 50 mls @ 100 mls/hr IV NOW ONE Stop: 11/25/18 09:25 Last Infusion: 11/25/18 09:41 Dose: 0 mls/hr Admin: 11/25/18 09:04 Dose: 100 mls/hr Azithromycin 500 mg/ Dextrose 250 mls @ 250 mls/hr IV Q24H [facility] Stop: 11/27/18 12:31 Last Admin: 11/27/18 12:38 Dose: 250 mls/hr Infusion: 11/26/18 21:47 Dose: 0 mls/hr Admin: 11/26/18 13:19 Dose: 250 mls/hr Infusion: 11/25/18 15:00 Dose: 250 mls/hr Admin: 11/25/18 14:00 Dose: 250 mls/hr Ceftriaxone Sodium/Dextrose (Rocephin) 2 gm in 50 mls @ 100 mls/hr IV 0900 [facility] Last Admin: 11/27/18 09:14 Dose: 100 mls/hr Infusion: 11/25/18 14:05 Dose: 0 mls/hr Admin: 11/25/18 13:26 Dose: 100 mls/hr Sodium Chloride (Normal Saline 0.9%) 250 mls @ 21 mls/hr IV Q24H PRN PRN Reason: Flush Ibuprofen (Advil) 800 mg PO NOW ONE Stop: 11/25/18 07:09 Last Admin: 11/25/18 07:24 Dose: 800 mg Magnesium Hydroxide (Milk Of Magnesia) 30 ml PO BEDTIME PRN PRN Reason: Constipation Ondansetron HCl (Zofran Odt) 4 mg PO Q8HR PRN PRN Reason: Nausea And Vomiting Ondansetron HCl (Zofran) 4 mg IV Q8HR PRN PRN Reason: Nausea And Vomiting Oxycodone/Acetaminophen (Percocet 5/325) 1 tab PO Q4HR PRN PRN Reason: Pain, Moderate (4-6) Pantoprazole Sodium (Protonix) [address] [facility] Last Admin: 11/25/18 15:08 Dose: Not Given Pantoprazole Sodium (Protonix) [address] [facility] Last Admin: 11/27/18 06:51 Dose: 20 mg Admin: 11/25/18 14:05 Dose: 20 mg Polyethylene Glycol (Miralax) 17 gm PO DAILY PRN PRN Reason: Constipation Last Admin: 11/27/18 09:15 Dose: 17 gm Admin: 11/26/18 09:35 Dose: 17 gm Sennosides (Senna) 17.2 mg PO BEDTIME PRN PRN Reason: Constipation Sodium Chloride (Normal Saline 0.9% Flush) 10 ml IV PRN PRN PRN Reason: Flush Sodium Chloride (Normal Saline 0.9% Flush) [address] [facility] Last Admin: 11/27/18 09:16 Dose: 10 ml Admin: 11/26/18 21:47 Dose: 10 ml Admin: 11/26/18 09:36 Dose: 10 ml Admin: 11/25/18 19:45 Dose: 10 ml Tamsulosin HCl (Flomax) 0.[address] [facility] Last Admin: 11/27/18 09:15 Dose: 0.4 mg Admin: 11/26/18 09:33 Dose: 0.4 mg Admin: 11/25/18 19:42 Dose: 0.4 mg Vital Signs - 8 hr 11/27/18 12:43 Pulse Rate 62 Respiratory Rate 22 Pulse Oximetry 99 <Antonieta Kaminski, - Last Filed: 11/25/18 11:29> Orders Ordered: ED Orders 11/27/18 13:12 Consult to Home Health Routine Discontinued Medications Acetaminophen (Tylenol) 975 mg PO NOW ONE Stop: 11/25/18 07:09 Last Admin: 11/25/18 07:24 Dose: 975 mg Acetaminophen (Tylenol) 650 mg PO Q6HR PRN PRN Reason: As Needed for Fever/Mild Pain Last Admin: 11/27/18 09:15 Dose: 650 mg Admin: 11/26/18 09:33 Dose: 650 mg Albuterol (Ventolin) 2.5 mg INH RTQ2HR PRN PRN Reason: Shortness Of Breath Or Wheezing Last Admin: 11/25/18 19:46 Dose: 2.5 mg Albuterol/Ipratropium (Duoneb) 3 ml INH Q1H PRN PRN Reason: Shortness Of Breath Albuterol/Ipratropium (Duoneb) [id number] [facility] Last Admin: 11/27/18 12:43 Dose: 3 ml Admin: 11/27/18 06:12 Dose: 3 ml Admin: 11/26/18 18:51 Dose: 3 ml Admin: 11/26/18 13:21 Dose: 3 ml Admin: 11/26/18 07:59 Dose: 3 ml Admin: 11/25/18 17:34 Dose: 3 ml Amoxicillin/Clavulanate Potassium (Augmentin 875-125 Mg) [address] [facility] Benzonatate (Tessalon Perles) 100 mg PO TID PRN PRN Reason: Cough Last Admin: 11/27/18 09:15 Dose: 100 mg Admin: 11/27/18 00:31 Dose: 100 mg Admin: 11/26/18 09:33 Dose: 100 mg Admin: 11/25/18 19:56 Dose: 100 mg Calcium Carbonate (Tums) 1,000 mg PO Q4HR PRN PRN Reason: Dyspepsia Docusate Sodium (Colace) [address] [facility] Last Admin: 11/27/18 09:15 Dose: 100 mg Admin: 11/26/18 21:47 Dose: 100 mg Admin: 11/26/18 09:33 Dose: 100 mg Admin: 11/25/18 19:43 Dose: 100 mg Guaifenesin (Mucinex) 1,[address] [facility] Last Admin: 11/27/18 09:15 Dose: 1,200 mg Admin: 11/26/18 21:47 Dose: 1,200 mg Admin: 11/26/18 09:33 Dose: 1,200 mg Admin: 11/25/18 19:43 Dose: 1,200 mg Heparin Sodium (Porcine) (Heparin) 5,[address] [facility] Last Admin: 11/27/18 09:14 Dose: 5,000 unit Admin: 11/26/18 21:47 Dose: 5,000 unit Admin: 11/26/18 09:34 Dose: 5,000 unit Admin: 11/25/18 19:44 Dose: 5,000 unit Sodium Chloride (Normal Saline 0.9%) 1,000 mls @ 1,000 mls/hr IV BOLUS ONE Stop: 11/25/18 07:40 Last Infusion: 11/25/18 08:59 Dose: 0 mls/hr Admin: 11/25/18 06:45 Dose: 1,000 mls/hr Sodium Chloride (Normal Saline 0.9%) 1,000 mls @ 1,000 mls/hr IV BOLUS ONE Stop: 11/25/18 09:16 Last Infusion: 11/25/18 09:41 Dose: 0 mls/hr Admin: 11/25/18 08:59 Dose: 1,000 mls/hr Ceftriaxone Sodium/Dextrose (Rocephin) 1 gm in 50 mls @ 100 mls/hr IV NOW ONE Stop: 11/25/18 09:25 Last Infusion: 11/25/18 09:41 Dose: 0 mls/hr Admin: 11/25/18 09:04 Dose: 100 mls/hr Azithromycin 500 mg/ Dextrose 250 mls @ 250 mls/hr IV Q24H GELY Stop: 11/27/18 12:31 Last Admin: 11/27/18 12:38 Dose: 250 mls/hr Infusion: 11/26/18 21:47 Dose: 0 mls/hr Admin: 11/26/18 13:19 Dose: 250 mls/hr Infusion: 11/25/18 15:00 Dose: 250 mls/hr Admin: 11/25/18 14:00 Dose: 250 mls/hr Ceftriaxone Sodium/Dextrose (Rocephin) 2 gm in 50 mls @ 100 mls/hr IV 0900 [facility] Last Admin: 11/27/18 09:14 Dose: 100 mls/hr Infusion: 11/25/18 14:05 Dose: 0 mls/hr Admin: 11/25/18 13:26 Dose: 100 mls/hr Sodium Chloride (Normal Saline 0.9%) 250 mls @ 21 mls/hr IV Q24H PRN PRN Reason: Flush Ibuprofen (Advil) 800 mg PO NOW ONE Stop: 11/25/18 07:09 Last Admin: 11/25/18 07:24 Dose: 800 mg Magnesium Hydroxide (Milk Of Magnesia) 30 ml PO BEDTIME PRN PRN Reason: Constipation Ondansetron HCl (Zofran Odt) 4 mg PO Q8HR PRN PRN Reason: Nausea And Vomiting Ondansetron HCl (Zofran) 4 mg IV Q8HR PRN PRN Reason: Nausea And Vomiting Oxycodone/Acetaminophen (Percocet 5/325) 1 tab PO Q4HR PRN PRN Reason: Pain, Moderate (4-6) Pantoprazole Sodium (Protonix) [address] [facility] Last Admin: 11/25/18 15:08 Dose: Not Given Pantoprazole Sodium (Protonix) [address] [facility] Last Admin: 11/27/18 06:51 Dose: 20 mg Admin: 11/25/18 14:05 Dose: 20 mg Polyethylene Glycol (Miralax) 17 gm PO DAILY PRN PRN Reason: Constipation Last Admin: 11/27/18 09:15 Dose: 17 gm Admin: 11/26/18 09:35 Dose: 17 gm Sennosides (Senna) 17.2 mg PO BEDTIME PRN PRN Reason: Constipation Sodium Chloride (Normal Saline 0.9% Flush) 10 ml IV PRN PRN PRN Reason: Flush Sodium Chloride (Normal Saline 0.9% Flush) [address] [facility] Last Admin: 11/27/18 09:16 Dose: 10 ml Admin: 11/26/18 21:47 Dose: 10 ml Admin: 11/26/18 09:36 Dose: 10 ml Admin: 11/25/18 19:45 Dose: 10 ml Tamsulosin HCl (Flomax) 0.[address] [facility] Last Admin: 11/27/18 09:15 Dose: 0.4 mg Admin: 11/26/18 09:33 Dose: 0.4 mg Admin: 11/25/18 19:42 Dose: 0.4 mg Vital Signs - 8 hr 11/27/18 12:43 Pulse Rate 62 Respiratory Rate 22 Pulse Oximetry 99 MDM - SOB/Dyspnea <Melissa King MD - Last Filed: 11/27/18 20:11> Lab Data Result diagrams: 11/27/18 07:55 11/27/18 07:55 Lab Results 11/25/18 11/25/18 11/25/18 Range/Units 06:40 06:55 06:55 WBC 11.1 H (4.5-11.0) X10^3/uL RBC 4.89 (4.5-5.9) X10^6/uL Hgb 15.0 (13.5-17.5) g/dL Hct 45.0 (41-53) % MCV 92.0 (80-100) fL MCH 30.7 (26-34) PG MCHC 33.4 (30-36) % RDW 12.7 (11.6-14.8) % Plt Count 138 L (150-400) X10^3/uL Neut % (Auto) 93.4 H (50-75) % Lymph % (Auto) 3.3 L (25-40) % [place] % (Auto) 2.8 L (3-14) % Eos % (Auto) 0.3 L (2-4) % Baso % (Auto) 0.2 (0-2) % Neut # (Auto) 11905 H (5009-5713) /uL Lymph # (Auto) 400 L (0447-9393) /uL [place] # (Auto) 300 (0-900) /uL Eos # (Auto) 0 (0-450) /uL Baso # (Auto) 0 (0-100) /uL Sodium 133 L (137-145) mmol/L Potassium 4.2 (3.4-5.1) mmol/L Chloride 99 (98-107) mmol/L Carbon Dioxide 24 (22-32) mmol/L BUN 29 H (9-20) mg/dL Creatinine 1.00 (0.66-1.25) mg/dL Estimated GFR > 60.0 (>60) mL/min BUN/Creatinine Ratio 29.0 H (6-22) Glucose 90 (80-110) mg/dL Lactate (0.7-2.1) mmol/L Calcium 7.3 L (8.4-10.2) mg/dL Magnesium (1.6-2.3) mg/dL Total Bilirubin 1.5 H (0.2-1.3) mg/dL AST 22 (17-59) IU/L ALT 29 (21-72) IU/L Alkaline Phosphatase 63 (38-126) U/L Total Protein 5.7 L (6.3-8.2) g/dL Albumin 3.1 L (3.5-5.0) g/dL Globulin 2.6 (1.7-4.1) g/dL Albumin/Globulin Ratio 1.2 (1.0-2.8) Lipase (23-300) U/L Procalcitonin (<0.5) ng/mL Urine Color Urine Appearance Urine pH (4.5-8.0) Ur Specific Delia (1.000-1.035) Urine Protein (Negative) Urine Glucose (UA) (Negative) g/dL Urine Ketones (NEGATIVE) Urine Occult Blood (Negative) Urine Nitrate (Negative) Urine Bilirubin (NEGATIVE) Urine Urobilinogen (0.2) E.U./dL Ur Leukocyte Esterase (NEGATIVE) Urine RBC (0-5/HPF) Urine WBC (0-5/HPF) Urine Bacteria (None) Ur Culture Indicated? Chlamy pneumoniae PCR (Not Detect) Adenovirus (PCR) (Not Detect) B.parapertussis DNA PCR (Not Detect) Coronavirus OC43 (PCR) (Not Detect) Coronavirus HKU1 (PCR) (Not Detect) Coronavirus 229E (PCR) (Not Detect) Coronavirus NL63 (PCR) (Not Detect) Human Metapneumovir PCR (Not Detect) Influenza Type A (PCR) (Not Detect) Influenza Type B (PCR) (Not Detect) Influenza A & B (PCR) Negative (Negative) M. pneumoniae (PCR) (Not Detect) Parainfluenza 1 (PCR) (Not Detect) Parainfluenza 2 (PCR) (Not Detect) Parainfluenza 3 (PCR) (Not Detect) Parainfluenza 4 (PCR) (Not Detect) RSV (PCR) (Not Detect) Entero/Rhino (PCR) (Not Detect) 11/25/18 11/25/18 11/25/18 Range/Units 07:48 07:48 07:48 WBC (4.5-11.0) X10^3/uL RBC (4.5-5.9) X10^6/uL Hgb (13.5-17.5) g/dL Hct (41-53) % MCV (80-100) fL MCH (26-34) PG MCHC (30-36) % RDW (11.6-14.8) % Plt Count (150-400) X10^3/uL Neut % (Auto) (50-75) % Lymph % (Auto) (25-40) % [place] % (Auto) (3-14) % Eos % (Auto) (2-4) % Baso % (Auto) (0-2) % Neut # (Auto) (5745-5389) /uL Lymph # (Auto) (1598-6517) /uL [place] # (Auto) (0-900) /uL Eos # (Auto) (0-450) /uL Baso # (Auto) (0-100) /uL Sodium (137-145) mmol/L Potassium (3.4-5.1) mmol/L Chloride (98-107) mmol/L Carbon Dioxide (22-32) mmol/L BUN (9-20) mg/dL Creatinine (0.66-1.25) mg/dL Estimated GFR (>60) mL/min BUN/Creatinine Ratio (6-22) Glucose (80-110) mg/dL Lactate 1.8 (0.7-2.1) mmol/L Calcium (8.4-10.2) mg/dL Magnesium (1.6-2.3) mg/dL Total Bilirubin (0.2-1.3) mg/dL AST (17-59) IU/L ALT (21-72) IU/L Alkaline Phosphatase (38-126) U/L Total Protein (6.3-8.2) g/dL Albumin (3.5-5.0) g/dL Globulin (1.7-4.1) g/dL Albumin/Globulin Ratio (1.0-2.8) Lipase 22 L (23-300) U/L Procalcitonin 0.13 (<0.5) ng/mL Urine Color Urine Appearance Urine pH (4.5-8.0) Ur Specific [place] (1.000-1.035) Urine Protein (Negative) Urine Glucose (UA) (Negative) g/dL Urine Ketones (NEGATIVE) Urine Occult Blood (Negative) Urine Nitrate (Negative) Urine Bilirubin (NEGATIVE) Urine Urobilinogen (0.2) E.U./dL Ur Leukocyte Esterase (NEGATIVE) Urine RBC (0-5/HPF) Urine WBC (0-5/HPF) Urine Bacteria (None) Ur Culture Indicated? Chlamy pneumoniae PCR (Not Detect) Adenovirus (PCR) (Not Detect) B.parapertussis DNA PCR (Not Detect) Coronavirus OC43 (PCR) (Not Detect) Coronavirus HKU1 (PCR) (Not Detect) Coronavirus 229E (PCR) (Not Detect) Coronavirus NL63 (PCR) (Not Detect) Human Metapneumovir PCR (Not Detect) Influenza Type A (PCR) (Not Detect) Influenza Type B (PCR) (Not Detect) Influenza A & B (PCR) (Negative) M. pneumoniae (PCR) (Not Detect) Parainfluenza 1 (PCR) (Not Detect) Parainfluenza 2 (PCR) (Not Detect) Parainfluenza 3 (PCR) (Not Detect) Parainfluenza 4 (PCR) (Not Detect) RSV (PCR) (Not Detect) Entero/Rhino (PCR) (Not Detect) 11/25/18 11/25/18 11/26/18 Range/Units 10:17 15:17 05:34 WBC 8.4 (4.5-11.0) X10^3/uL RBC 3.94 L (4.5-5.9) X10^6/uL Hgb 12.4 L (13.5-17.5) g/dL Hct 36.5 L (41-53) % MCV 92.6 (80-100) fL MCH 31.3 (26-34) PG MCHC 33.8 (30-36) % RDW 12.8 (11.6-14.8) % Plt Count 96 L (150-400) X10^3/uL Neut % (Auto) 83.9 H (50-75) % Lymph % (Auto) 6.2 L (25-40) % [place] % (Auto) 8.9 (3-14) % Eos % (Auto) 0.9 L (2-4) % Baso % (Auto) 0.1 (0-2) % Neut # (Auto) 7000 (3443-0719) /uL Lymph # (Auto) 500 L (1766-3983) /uL [place] # (Auto) 700 (0-900) /uL Eos # (Auto) 100 (0-450) /uL Baso # (Auto) 0 (0-100) /uL Sodium (137-145) mmol/L Potassium (3.4-5.1) mmol/L Chloride (98-107) mmol/L Carbon Dioxide (22-32) mmol/L BUN (9-20) mg/dL Creatinine (0.66-1.25) mg/dL Estimated GFR (>60) mL/min BUN/Creatinine Ratio (6-22) Glucose (80-110) mg/dL Lactate (0.7-2.1) mmol/L Calcium (8.4-10.2) mg/dL Magnesium (1.6-2.3) mg/dL Total Bilirubin (0.2-1.3) mg/dL AST (17-59) IU/L ALT (21-72) IU/L Alkaline Phosphatase (38-126) U/L Total Protein (6.3-8.2) g/dL Albumin (3.5-5.0) g/dL Globulin (1.7-4.1) g/dL Albumin/Globulin Ratio (1.0-2.8) Lipase (23-300) U/L Procalcitonin (<0.5) ng/mL Urine Color Yellow Urine Appearance Cloudy Urine pH 5.5 (4.5-8.0) Ur Specific Delia 1.020 (1.000-1.035) Urine Protein 1+ H (Negative) Urine Glucose (UA) Negative (Negative) g/dL Urine Ketones Trace H (NEGATIVE) Urine Occult Blood 3+ H (Negative) Urine Nitrate Negative (Negative) Urine Bilirubin Negative (NEGATIVE) Urine Urobilinogen 0.2 (0.2) E.U./dL Ur Leukocyte Esterase Trace H (NEGATIVE) Urine RBC 10-30/hpf H (0-5/HPF) Urine WBC 1-5/hpf (0-5/HPF) Urine Bacteria None seen (None) Ur Culture Indicated? Cult not indicated Chlamy pneumoniae PCR Not detected (Not Detect) Adenovirus (PCR) Not detected (Not Detect) B.parapertussis DNA PCR Not detected (Not Detect) Coronavirus OC43 (PCR) Not detected (Not Detect) Coronavirus HKU1 (PCR) Not detected (Not Detect) Coronavirus 229E (PCR) Not detected (Not Detect) Coronavirus NL63 (PCR) Not detected (Not Detect) Human Metapneumovir PCR Not detected (Not Detect) Influenza Type A (PCR) Not detected (Not Detect) Influenza Type B (PCR) Not detected (Not Detect) Influenza A & B (PCR) (Negative) M. pneumoniae (PCR) Not detected (Not Detect) Parainfluenza 1 (PCR) Not detected (Not Detect) Parainfluenza 2 (PCR) Not detected (Not Detect) Parainfluenza 3 (PCR) Not detected (Not Detect) Parainfluenza 4 (PCR) Not detected (Not Detect) RSV (PCR) Not detected (Not Detect) Entero/Rhino (PCR) Not detected (Not Detect) 11/26/18 11/26/18 11/27/18 Range/Units 05:34 05:34 07:55 WBC 4.8 (4.5-11.0) X10^3/uL RBC 3.66 L (4.5-5.9) X10^6/uL Hgb 11.4 L (13.5-17.5) g/dL Hct 34.0 L (41-53) % MCV 92.8 (80-100) fL MCH 31.3 (26-34) PG MCHC 33.7 (30-36) % RDW 12.8 (11.6-14.8) % Plt Count 120 L (150-400) X10^3/uL Neut % (Auto) 75.0 (50-75) % Lymph % (Auto) 11.7 L (25-40) % [place] % (Auto) 10.0 (3-14) % Eos % (Auto) 3.1 (2-4) % Baso % (Auto) 0.2 (0-2) % Neut # (Auto) 3600 (9184-6980) /uL Lymph # (Auto) 600 L (0580-2092) /uL [place] # (Auto) 500 (0-900) /uL Eos # (Auto) 100 (0-450) /uL Baso # (Auto) 0 (0-100) /uL Sodium 134 L (137-145) mmol/L Potassium 4.6 (3.4-5.1) mmol/L Chloride 102 (98-107) mmol/L Carbon Dioxide 27 (22-32) mmol/L BUN 21 H (9-20) mg/dL Creatinine 1.00 (0.66-1.25) mg/dL Estimated GFR > 60.0 (>60) mL/min BUN/Creatinine Ratio 21.0 (6-22) Glucose 102 (80-110) mg/dL Lactate (0.7-2.1) mmol/L Calcium 7.3 L (8.4-10.2) mg/dL Magnesium (1.6-2.3) mg/dL Total Bilirubin (0.2-1.3) mg/dL AST (17-59) IU/L ALT (21-72) IU/L Alkaline Phosphatase (38-126) U/L Total Protein (6.3-8.2) g/dL Albumin (3.5-5.0) g/dL Globulin (1.7-4.1) g/dL Albumin/Globulin Ratio (1.0-2.8) Lipase (23-300) U/L Procalcitonin 5.13 H (<0.5) ng/mL Urine Color Urine Appearance Urine pH (4.5-8.0) Ur Specific Delia (1.000-1.035) Urine Protein (Negative) Urine Glucose (UA) (Negative) g/dL Urine Ketones (NEGATIVE) Urine Occult Blood (Negative) Urine Nitrate (Negative) Urine Bilirubin (NEGATIVE) Urine Urobilinogen (0.2) E.U./dL Ur Leukocyte Esterase (NEGATIVE) Urine RBC (0-5/HPF) Urine WBC (0-5/HPF) Urine Bacteria (None) Ur Culture Indicated? Chlamy pneumoniae PCR (Not Detect) Adenovirus (PCR) (Not Detect) B.parapertussis DNA PCR (Not Detect) Coronavirus OC43 (PCR) (Not Detect) Coronavirus HKU1 (PCR) (Not Detect) Coronavirus 229E (PCR) (Not Detect) Coronavirus NL63 (PCR) (Not Detect) Human Metapneumovir PCR (Not Detect) Influenza Type A (PCR) (Not Detect) Influenza Type B (PCR) (Not Detect) Influenza A & B (PCR) (Negative) M. pneumoniae (PCR) (Not Detect) Parainfluenza 1 (PCR) (Not Detect) Parainfluenza 2 (PCR) (Not Detect) Parainfluenza 3 (PCR) (Not Detect) Parainfluenza 4 (PCR) (Not Detect) RSV (PCR) (Not Detect) Entero/Rhino (PCR) (Not Detect) 11/27/18 11/27/18 Range/Units 07:55 07:55 WBC (4.5-11.0) X10^3/uL RBC (4.5-5.9) X10^6/uL Hgb (13.5-17.5) g/dL Hct (41-53) % MCV (80-100) fL MCH (26-34) PG MCHC (30-36) % RDW (11.6-14.8) % Plt Count (150-400) X10^3/uL Neut % (Auto) (50-75) % Lymph % (Auto) (25-40) % [place] % (Auto) (3-14) % Eos % (Auto) (2-4) % Baso % (Auto) (0-2) % Neut # (Auto) (5272-3045) /uL Lymph # (Auto) (7958-7136) /uL [place] # (Auto) (0-900) /uL Eos # (Auto) (0-450) /uL Baso # (Auto) (0-100) /uL Sodium 138 (137-145) mmol/L Potassium 3.7 (3.4-5.1) mmol/L Chloride 106 (98-107) mmol/L Carbon Dioxide 25 (22-32) mmol/L BUN 12 (9-20) mg/dL Creatinine 0.80 (0.66-1.25) mg/dL Estimated GFR > 60.0 (>60) mL/min BUN/Creatinine Ratio 15.0 (6-22) Glucose 96 (80-110) mg/dL Lactate (0.7-2.1) mmol/L Calcium 7.7 L (8.4-10.2) mg/dL Magnesium 2.0 (1.6-2.3) mg/dL Total Bilirubin (0.2-1.3) mg/dL AST (17-59) IU/L ALT (21-72) IU/L Alkaline Phosphatase (38-126) U/L Total Protein (6.3-8.2) g/dL Albumin (3.5-5.0) g/dL Globulin (1.7-4.1) g/dL Albumin/Globulin Ratio (1.0-2.8) Lipase (23-300) U/L Procalcitonin 2.75 H (<0.5) ng/mL Urine Color Urine Appearance Urine pH (4.5-8.0) Ur Specific Delia (1.000-1.035) Urine Protein (Negative) Urine Glucose (UA) (Negative) g/dL Urine Ketones (NEGATIVE) Urine Occult Blood (Negative) Urine Nitrate (Negative) Urine Bilirubin (NEGATIVE) Urine Urobilinogen (0.2) E.U./dL Ur Leukocyte Esterase (NEGATIVE) Urine RBC (0-5/HPF) Urine WBC (0-5/HPF) Urine Bacteria (None) Ur Culture Indicated? Chlamy pneumoniae PCR (Not Detect) Adenovirus (PCR) (Not Detect) B.parapertussis DNA PCR (Not Detect) Coronavirus OC43 (PCR) (Not Detect) Coronavirus HKU1 (PCR) (Not Detect) Coronavirus 229E (PCR) (Not Detect) Coronavirus NL63 (PCR) (Not Detect) Human Metapneumovir PCR (Not Detect) Influenza Type A (PCR) (Not Detect) Influenza Type B (PCR) (Not Detect) Influenza A & B (PCR) (Negative) M. pneumoniae (PCR) (Not Detect) Parainfluenza 1 (PCR) (Not Detect) Parainfluenza 2 (PCR) (Not Detect) Parainfluenza 3 (PCR) (Not Detect) Parainfluenza 4 (PCR) (Not Detect) RSV (PCR) (Not Detect) Entero/Rhino (PCR) (Not Detect) <Antonieta Kaminski, DO - Last Filed: 11/25/18 11:29> Lab Data Attestation: I reviewed the patient's lab results. Lab Results 11/25/18 11/25/18 11/25/18 Range/Units 06:40 06:55 06:55 WBC 11.1 H (4.5-11.0) X10^3/uL RBC 4.89 (4.5-5.9) X10^6/uL Hgb 15.0 (13.5-17.5) g/dL Hct 45.0 (41-53) % MCV 92.0 (80-100) fL MCH 30.7 (26-34) PG MCHC 33.4 (30-36) % RDW 12.7 (11.6-14.8) % Plt Count 138 L (150-400) X10^3/uL Neut % (Auto) 93.4 H (50-75) % Lymph % (Auto) 3.3 L (25-40) % [place] % (Auto) 2.8 L (3-14) % Eos % (Auto) 0.3 L (2-4) % Baso % (Auto) 0.2 (0-2) % Neut # (Auto) 96547 H (8852-3552) /uL Lymph # (Auto) 400 L (1897-9213) /uL [place] # (Auto) 300 (0-900) /uL Eos # (Auto) 0 (0-450) /uL Baso # (Auto) 0 (0-100) /uL Sodium 133 L (137-145) mmol/L Potassium 4.2 (3.4-5.1) mmol/L Chloride 99 (98-107) mmol/L Carbon Dioxide 24 (22-32) mmol/L BUN 29 H (9-20) mg/dL Creatinine 1.00 (0.66-1.25) mg/dL Estimated GFR > 60.0 (>60) mL/min BUN/Creatinine Ratio 29.0 H (6-22) Glucose 90 (80-110) mg/dL Lactate (0.7-2.1) mmol/L Calcium 7.3 L (8.4-10.2) mg/dL Magnesium (1.6-2.3) mg/dL Total Bilirubin 1.5 H (0.2-1.3) mg/dL AST 22 (17-59) IU/L ALT 29 (21-72) IU/L Alkaline Phosphatase 63 (38-126) U/L Total Protein 5.7 L (6.3-8.2) g/dL Albumin 3.1 L (3.5-5.0) g/dL Globulin 2.6 (1.7-4.1) g/dL Albumin/Globulin Ratio 1.2 (1.0-2.8) Lipase (23-300) U/L Procalcitonin (<0.5) ng/mL Urine Color Urine Appearance Urine pH (4.5-8.0) Ur Specific Delia (1.000-1.035) Urine Protein (Negative) Urine Glucose (UA) (Negative) g/dL Urine Ketones (NEGATIVE) Urine Occult Blood (Negative) Urine Nitrate (Negative) Urine Bilirubin (NEGATIVE) Urine Urobilinogen (0.2) E.U./dL Ur Leukocyte Esterase (NEGATIVE) Urine RBC (0-5/HPF) Urine WBC (0-5/HPF) Urine Bacteria (None) Ur Culture Indicated? Chlamy pneumoniae PCR (Not Detect) Adenovirus (PCR) (Not Detect) B.parapertussis DNA PCR (Not Detect) Coronavirus OC43 (PCR) (Not Detect) Coronavirus HKU1 (PCR) (Not Detect) Coronavirus 229E (PCR) (Not Detect) Coronavirus NL63 (PCR) (Not Detect) Human Metapneumovir PCR (Not Detect) Influenza Type A (PCR) (Not Detect) Influenza Type B (PCR) (Not Detect) Influenza A & B (PCR) Negative (Negative) M. pneumoniae (PCR) (Not Detect) Parainfluenza 1 (PCR) (Not Detect) Parainfluenza 2 (PCR) (Not Detect) Parainfluenza 3 (PCR) (Not Detect) Parainfluenza 4 (PCR) (Not Detect) RSV (PCR) (Not Detect) Entero/Rhino (PCR) (Not Detect) 11/25/18 11/25/18 11/25/18 Range/Units 07:48 07:48 07:48 WBC (4.5-11.0) X10^3/uL RBC (4.5-5.9) X10^6/uL Hgb (13.5-17.5) g/dL Hct (41-53) % MCV (80-100) fL MCH (26-34) PG MCHC (30-36) % RDW (11.6-14.8) % Plt Count (150-400) X10^3/uL Neut % (Auto) (50-75) % Lymph % (Auto) (25-40) % [place] % (Auto) (3-14) % Eos % (Auto) (2-4) % Baso % (Auto) (0-2) % Neut # (Auto) (9201-8551) /uL Lymph # (Auto) (2871-2897) /uL [place] # (Auto) (0-900) /uL Eos # (Auto) (0-450) /uL Baso # (Auto) (0-100) /uL Sodium (137-145) mmol/L Potassium (3.4-5.1) mmol/L Chloride (98-107) mmol/L Carbon Dioxide (22-32) mmol/L BUN (9-20) mg/dL Creatinine (0.66-1.25) mg/dL Estimated GFR (>60) mL/min BUN/Creatinine Ratio (6-22) Glucose (80-110) mg/dL Lactate 1.8 (0.7-2.1) mmol/L Calcium (8.4-10.2) mg/dL Magnesium (1.6-2.3) mg/dL Total Bilirubin (0.2-1.3) mg/dL AST (17-59) IU/L ALT (21-72) IU/L Alkaline Phosphatase (38-126) U/L Total Protein (6.3-8.2) g/dL Albumin (3.5-5.0) g/dL Globulin (1.7-4.1) g/dL Albumin/Globulin Ratio (1.0-2.8) Lipase 22 L (23-300) U/L Procalcitonin 0.13 (<0.5) ng/mL Urine Color Urine Appearance Urine pH (4.5-8.0) Ur Specific Delia (1.000-1.035) Urine Protein (Negative) Urine Glucose (UA) (Negative) g/dL Urine Ketones (NEGATIVE) Urine Occult Blood (Negative) Urine Nitrate (Negative) Urine Bilirubin (NEGATIVE) Urine Urobilinogen (0.2) E.U./dL Ur Leukocyte Esterase (NEGATIVE) Urine RBC (0-5/HPF) Urine WBC (0-5/HPF) Urine Bacteria (None) Ur Culture Indicated? Chlamy pneumoniae PCR (Not Detect) Adenovirus (PCR) (Not Detect) B.parapertussis DNA PCR (Not Detect) Coronavirus OC43 (PCR) (Not Detect) Coronavirus HKU1 (PCR) (Not Detect) Coronavirus 229E (PCR) (Not Detect) Coronavirus NL63 (PCR) (Not Detect) Human Metapneumovir PCR (Not Detect) Influenza Type A (PCR) (Not Detect) Influenza Type B (PCR) (Not Detect) Influenza A & B (PCR) (Negative) M. pneumoniae (PCR) (Not Detect) Parainfluenza 1 (PCR) (Not Detect) Parainfluenza 2 (PCR) (Not Detect) Parainfluenza 3 (PCR) (Not Detect) Parainfluenza 4 (PCR) (Not Detect) RSV (PCR) (Not Detect) Entero/Rhino (PCR) (Not Detect) 11/25/18 11/25/18 11/26/18 Range/Units 10:17 15:17 05:34 WBC 8.4 (4.5-11.0) X10^3/uL RBC 3.94 L (4.5-5.9) X10^6/uL Hgb 12.4 L (13.5-17.5) g/dL Hct 36.5 L (41-53) % MCV 92.6 (80-100) fL MCH 31.3 (26-34) PG MCHC 33.8 (30-36) % RDW 12.8 (11.6-14.8) % Plt Count 96 L (150-400) X10^3/uL Neut % (Auto) 83.9 H (50-75) % Lymph % (Auto) 6.2 L (25-40) % [place] % (Auto) 8.9 (3-14) % Eos % (Auto) 0.9 L (2-4) % Baso % (Auto) 0.1 (0-2) % Neut # (Auto) 7000 (1468-7848) /uL Lymph # (Auto) 500 L (9322-4370) /uL [place] # (Auto) 700 (0-900) /uL Eos # (Auto) 100 (0-450) /uL Baso # (Auto) 0 (0-100) /uL Sodium (137-145) mmol/L Potassium (3.4-5.1) mmol/L Chloride (98-107) mmol/L Carbon Dioxide (22-32) mmol/L BUN (9-20) mg/dL Creatinine (0.66-1.25) mg/dL Estimated GFR (>60) mL/min BUN/Creatinine Ratio (6-22) Glucose (80-110) mg/dL Lactate (0.7-2.1) mmol/L Calcium (8.4-10.2) mg/dL Magnesium (1.6-2.3) mg/dL Total Bilirubin (0.2-1.3) mg/dL AST (17-59) IU/L ALT (21-72) IU/L Alkaline Phosphatase (38-126) U/L Total Protein (6.3-8.2) g/dL Albumin (3.5-5.0) g/dL Globulin (1.7-4.1) g/dL Albumin/Globulin Ratio (1.0-2.8) Lipase (23-300) U/L Procalcitonin (<0.5) ng/mL Urine Color Yellow Urine Appearance Cloudy Urine pH 5.5 (4.5-8.0) Ur Specific Delia 1.020 (1.000-1.035) Urine Protein 1+ H (Negative) Urine Glucose (UA) Negative (Negative) g/dL Urine Ketones Trace H (NEGATIVE) Urine Occult Blood 3+ H (Negative) Urine Nitrate Negative (Negative) Urine Bilirubin Negative (NEGATIVE) Urine Urobilinogen 0.2 (0.2) E.U./dL Ur Leukocyte Esterase Trace H (NEGATIVE) Urine RBC 10-30/hpf H (0-5/HPF) Urine WBC 1-5/hpf (0-5/HPF) Urine Bacteria None seen (None) Ur Culture Indicated? Cult not indicated Chlamy pneumoniae PCR Not detected (Not Detect) Adenovirus (PCR) Not detected (Not Detect) B.parapertussis DNA PCR Not detected (Not Detect) Coronavirus OC43 (PCR) Not detected (Not Detect) Coronavirus HKU1 (PCR) Not detected (Not Detect) Coronavirus 229E (PCR) Not detected (Not Detect) Coronavirus NL63 (PCR) Not detected (Not Detect) Human Metapneumovir PCR Not detected (Not Detect) Influenza Type A (PCR) Not detected (Not Detect) Influenza Type B (PCR) Not detected (Not Detect) Influenza A & B (PCR) (Negative) M. pneumoniae (PCR) Not detected (Not Detect) Parainfluenza 1 (PCR) Not detected (Not Detect) Parainfluenza 2 (PCR) Not detected (Not Detect) Parainfluenza 3 (PCR) Not detected (Not Detect) Parainfluenza 4 (PCR) Not detected (Not Detect) RSV (PCR) Not detected (Not Detect) Entero/Rhino (PCR) Not detected (Not Detect) 11/26/18 11/26/18 11/27/18 Range/Units 05:34 05:34 07:55 WBC 4.8 (4.5-11.0) X10^3/uL RBC 3.66 L (4.5-5.9) X10^6/uL Hgb 11.4 L (13.5-17.5) g/dL Hct 34.0 L (41-53) % MCV 92.8 (80-100) fL MCH 31.3 (26-34) PG MCHC 33.7 (30-36) % RDW 12.8 (11.6-14.8) % Plt Count 120 L (150-400) X10^3/uL Neut % (Auto) 75.0 (50-75) % Lymph % (Auto) 11.7 L (25-40) % [place] % (Auto) 10.0 (3-14) % Eos % (Auto) 3.1 (2-4) % Baso % (Auto) 0.2 (0-2) % Neut # (Auto) 3600 (1220-3823) /uL Lymph # (Auto) 600 L (7374-6823) /uL [place] # (Auto) 500 (0-900) /uL Eos # (Auto) 100 (0-450) /uL Baso # (Auto) 0 (0-100) /uL Sodium 134 L (137-145) mmol/L Potassium 4.6 (3.4-5.1) mmol/L Chloride 102 (98-107) mmol/L Carbon Dioxide 27 (22-32) mmol/L BUN 21 H (9-20) mg/dL Creatinine 1.00 (0.66-1.25) mg/dL Estimated GFR > 60.0 (>60) mL/min BUN/Creatinine Ratio 21.0 (6-22) Glucose 102 (80-110) mg/dL Lactate (0.7-2.1) mmol/L Calcium 7.3 L (8.4-10.2) mg/dL Magnesium (1.6-2.3) mg/dL Total Bilirubin (0.2-1.3) mg/dL AST (17-59) IU/L ALT (21-72) IU/L Alkaline Phosphatase (38-126) U/L Total Protein (6.3-8.2) g/dL Albumin (3.5-5.0) g/dL Globulin (1.7-4.1) g/dL Albumin/Globulin Ratio (1.0-2.8) Lipase (23-300) U/L Procalcitonin 5.13 H (<0.5) ng/mL Urine Color Urine Appearance Urine pH (4.5-8.0) Ur Specific Delia (1.000-1.035) Urine Protein (Negative) Urine Glucose (UA) (Negative) g/dL Urine Ketones (NEGATIVE) Urine Occult Blood (Negative) Urine Nitrate (Negative) Urine Bilirubin (NEGATIVE) Urine Urobilinogen (0.2) E.U./dL Ur Leukocyte Esterase (NEGATIVE) Urine RBC (0-5/HPF) Urine WBC (0-5/HPF) Urine Bacteria (None) Ur Culture Indicated? Chlamy pneumoniae PCR (Not Detect) Adenovirus (PCR) (Not Detect) B.parapertussis DNA PCR (Not Detect) Coronavirus OC43 (PCR) (Not Detect) Coronavirus HKU1 (PCR) (Not Detect) Coronavirus 229E (PCR) (Not Detect) Coronavirus NL63 (PCR) (Not Detect) Human Metapneumovir PCR (Not Detect) Influenza Type A (PCR) (Not Detect) Influenza Type B (PCR) (Not Detect) Influenza A & B (PCR) (Negative) M. pneumoniae (PCR) (Not Detect) Parainfluenza 1 (PCR) (Not Detect) Parainfluenza 2 (PCR) (Not Detect) Parainfluenza 3 (PCR) (Not Detect) Parainfluenza 4 (PCR) (Not Detect) RSV (PCR) (Not Detect) Entero/Rhino (PCR) (Not Detect) 11/27/18 11/27/18 Range/Units 07:55 07:55 WBC (4.5-11.0) X10^3/uL RBC (4.5-5.9) X10^6/uL Hgb (13.5-17.5) g/dL Hct (41-53) % MCV (80-100) fL MCH (26-34) PG MCHC (30-36) % RDW (11.6-14.8) % Plt Count (150-400) X10^3/uL Neut % (Auto) (50-75) % Lymph % (Auto) (25-40) % [place] % (Auto) (3-14) % Eos % (Auto) (2-4) % Baso % (Auto) (0-2) % Neut # (Auto) (7809-6652) /uL Lymph # (Auto) (7129-5611) /uL [place] # (Auto) (0-900) /uL Eos # (Auto) (0-450) /uL Baso # (Auto) (0-100) /uL Sodium 138 (137-145) mmol/L Potassium 3.7 (3.4-5.1) mmol/L Chloride 106 (98-107) mmol/L Carbon Dioxide 25 (22-32) mmol/L BUN 12 (9-20) mg/dL Creatinine 0.80 (0.66-1.25) mg/dL Estimated GFR > 60.0 (>60) mL/min BUN/Creatinine Ratio 15.0 (6-22) Glucose 96 (80-110) mg/dL Lactate (0.7-2.1) mmol/L Calcium 7.7 L (8.4-10.2) mg/dL Magnesium 2.0 (1.6-2.3) mg/dL Total Bilirubin (0.2-1.3) mg/dL AST (17-59) IU/L ALT (21-72) IU/L Alkaline Phosphatase (38-126) U/L Total Protein (6.3-8.2) g/dL Albumin (3.5-5.0) g/dL Globulin (1.7-4.1) g/dL Albumin/Globulin Ratio (1.0-2.8) Lipase (23-300) U/L Procalcitonin 2.75 H (<0.5) ng/mL Urine Color Urine Appearance Urine pH (4.5-8.0) Ur Specific Delia (1.000-1.035) Urine Protein (Negative) Urine Glucose (UA) (Negative) g/dL Urine Ketones (NEGATIVE) Urine Occult Blood (Negative) Urine Nitrate (Negative) Urine Bilirubin (NEGATIVE) Urine Urobilinogen (0.2) E.U./dL Ur Leukocyte Esterase (NEGATIVE) Urine RBC (0-5/HPF) Urine WBC (0-5/HPF) Urine Bacteria (None) Ur Culture Indicated? Chlamy pneumoniae PCR (Not Detect) Adenovirus (PCR) (Not Detect) B.parapertussis DNA PCR (Not Detect) Coronavirus OC43 (PCR) (Not Detect) Coronavirus HKU1 (PCR) (Not Detect) Coronavirus 229E (PCR) (Not Detect) Coronavirus NL63 (PCR) (Not Detect) Human Metapneumovir PCR (Not Detect) Influenza Type A (PCR) (Not Detect) Influenza Type B (PCR) (Not Detect) Influenza A & B (PCR) (Negative) M. pneumoniae (PCR) (Not Detect) Parainfluenza 1 (PCR) (Not Detect) Parainfluenza 2 (PCR) (Not Detect) Parainfluenza 3 (PCR) (Not Detect) Parainfluenza 4 (PCR) (Not Detect) RSV (PCR) (Not Detect) Entero/Rhino (PCR) (Not Detect) Imaging Data Chest x-ray: My impression: hazy appearance on right chest. Radiologist's impression: ReyCosta 68 M [address] [place] [id number] XRay Report Signed Patient: Costa Le [facility]#: [id number] : 1950Acct:[id number] Age/Sex: 68 / MDate of Service: 11/25/18 Loc: ED Accession Number: [id number] Procedure: XR chest 1V Ordering Provider: Melissa King MD PROCEDURE: XR CHEST 1V INDICATIONS: dyspnea, cough, fever TECHNIQUE: One view of the chest was acquired. COMPARISON: None. FINDINGS: Surgical changes and devices: None. Lungs and pleura: There is infiltrate in right lung suspicious for pneumonia. No pleural effusions or pneumothorax. Mediastinum: Mediastinal contours appear normal. Heart size is normal. Bones and chest wall: No suspicious bony lesions. Overlying soft tissues appear unremarkable. IMPRESSION: Suspect right pneumonia. Dictated by: Danika Ireland M.D. on 11/25/2018 at 8:37 Approved by: Danika Ireland M.D. on 11/25/2018 at 8:37 US - abdomen: Radiologist's impression: [address] [address] Ultrasound Report Signed Patient: Costa Le [facility]#: [id number] : 1950Acct:[id number] Age/Sex: 68 / MDate of Service: 11/25/18 Loc: ED Accession Number: [id number] Procedure: US abdomen complete Ordering Provider: Antonieta Kaminski D.O. PROCEDURE: US ABDOMEN COMPLETE INDICATIONS: COUGH, SHORTNESS OF BREATH, ELEVATED BILIRUBIN TECHNIQUE: Real-time scanning was performed of the abdominal and retroperitoneal organs, with image documentation. COMPARISON: None. FINDINGS: Liver: Liver is normal in size. Left hepatic lobe cyst measuring 17 mm. Gallbladder: Surgically absent Biliary ducts: Intrahepatic bile ducts are non-dilated. Extrahepatic bile duct caliber measures 7.3 mm. Normal is 6-7 mm or less in diameter, or 10 mm or less post-cholecystectomy. Pancreas: Visualized portions of the pancreas are sonographically normal. Spleen: Spleen is normal in size and homogeneous in echotexture. Kidneys: Kidneys are normal in size and echotexture. Right kidney measures 10.3 cm long; left kidney measures 12.2 cm long. Moderate bilateral hydronephrosis. No solid masses. Aorta: Visualized aorta is normal in caliber at less than 3 cm. Iliacs: Proximal common iliac arteries are normal in caliber at less than 2.5 cm. IVC: Intrahepatic inferior vena cava is patent. Miscellaneous: No free abdominal fluid. Bilateral ureteral jets are seen within the urinary bladder. IMPRESSION: 1. Bilateral hydronephrosis. Dictated by: Ernestine Julian M.D. on 11/25/2018 at 9:09 Approved by: Ernestine Julian M.D. on 11/25/2018 at 9:10 MDM Narrative Medical decision making narrative: Patient signed out to myself by Dr. King. Suspect pneumonia, patient has some mild wheeze and crackles on the right and his chest x-ray although no clear definite infiltrate does appear hazy on that side. Patient had a fever here in the emergency department, he was given ibuprofen and Tylenol. His white count is 11, his bilirubin is elevated. Patient pressure has been consistently on the low side with a pulse in the 90s. He is not on any beta-blockers or other medications that should decrease his heart rate Or ability to vaso constricted. With elevation of bilirubin ultrasound of the abdomen was ordered. Patient did have a hernia repair, he has been having bowel movements. Has not had any nausea or vomiting. He states his belly is a little more distended according to him and his brother. He has had a lot a cough and upper respiratory congestion. Here in the department his oxygen has occasionally dip down to 88 he was placed on oxygen and with mild wheezes was given a breathing treatment. After breathing treatment patient's oxygen improved for about 20 min but then dropped back down to 89%. Patient's chest x-ray does show pneumonia, is white count is 11. He was febrile upon arrival and has improved after ibuprofen and Tylenol. Patient has been persistently hypotensive but does not have any changes to mentation. Discussed with family and patient feel that he would require hospitalization. I discussed with Dr. Holland plan for inpatient admission. Patient received Rocephin initially here in the department. He did have a recent inguinal hernia repair this appears clean dry and intact and does not appear to be source of infection. I suspect he may have had inspiration either during surgery or postsurgical verses a infectious cause. Dr. Holland req uests a respiratory panel and dropped precautions. We did discuss my suspicion for a pulmonary embolism is lower for this patient. He has crackles as well as some wheeze on that right side which drives my suspicion. Discharge Plan Departure Patient Disposition: Admitted As Inpatient Clinical Impression: Pneumonia Discharge Date/Time: 11/25/18 10:53 Interventions: ED Discharge Assessment Last Done: 11/25/18 10:53 Instructions: DI for Pneumonia -- Adult, DI for Hernia Repair, DI for C onstipation, DI for Urinary Retention in Men Referrals: Costa Millan MD [Primary Care Provider] - Admit Date/Time: 11/25/18 10:32 Admit Provider: Mildred Holland
[2018-11-25 07:07] LABS: Add Manual Diff / Slide Review NO; Basophils Absolute Auto 0 /uL (0-100); Basophils Percent Auto 0.2 % (0-2); Eosinophils Absolute Auto 0 /uL (0-450); Eosinophils Percent Auto 0.3 % (2-4); Lymphocytes Absolute Auto 400 /uL (1100-4500); Lymphocytes Percent Auto 3.3 % (25-40); Mean Corpuscular HGB Conc 33.4 % (30-36); Mean Corpuscular Hemoglobin 30.7 PG (26-34); Monocytes Absolute Auto 300 /uL (0-900); Monocytes Percent Auto 2.8 % (3-14); Neutrophils Absolute Auto 10400 /uL (1500-7000); Neutrophils Percent Auto 93.4 % (50-75); Platelet Count 138 X10^3/uL (150-400); Red Blood Cell Count 4.89 X10^6/uL (4.5-5.9); Red Cell Distribution Width 12.7 % (11.6-14.8); White Blood Cell Count 11.1 X10^3/uL (4.5-11.0)
[2018-11-25 07:09] LABS: Influenza A and B by PCR Rapid Negative (Negative)
[2018-11-25 07:13] LABS: Alanine Aminotransferase 29 IU/L (21-72); Albumin 3.1 g/dL (3.5-5.0); Albumin Globulin Ratio 1.2 (1.0-2.8); Alkaline Phosphatase 63 U/L (38-126); Aspartate Aminotransferase 22 IU/L (17-59); Bilirubin Total 1.5 mg/dL (0.2-1.3); Blood Urea Nitrogen 29 mg/dL (9-20); Carbon Dioxide 24 mmol/L (22-32); Chloride 99 mmol/L (98-107); Estimated Glomerular Filt Rate > 60.0 mL/min (>60); Globulin 2.6 g/dL (1.7-4.1); Glucose 90 mg/dL (80-110); HEMOLYSIS < 15 (0-50); Potassium 4.2 mmol/L (3.4-5.1); Sodium 133 mmol/L (137-145); Total Protein 5.7 g/dL (6.3-8.2)
[2018-11-25] MEDS: IBUPROFEN 400 MG TABLET 800 MG PO (07:24)
[2018-11-25] MEDS: ACETAMINOPHEN 325 MG TABLET 975 MG PO (07:24)
--- NOTE | 2018-11-25 07:58 | DI.US.S_ITS ---
PROCEDURE: US ABDOMEN COMPLETE INDICATIONS: COUGH, SHORTNESS OF BREATH, ELEVATED BILIRUBIN TECHNIQUE: Real-time scanning was performed of the abdominal and retroperitoneal organs, with image documentation. COMPARISON: None. FINDINGS: Liver: Liver is normal in size. Left hepatic lobe cyst measuring 17 mm. Gallbladder: Surgically absent Biliary ducts: Intrahepatic bile ducts are non-dilated. Extrahepatic bile duct caliber measures 7.3 mm. Normal is 6-7 mm or less in diameter, or 10 mm or less post-cholecystectomy. Pancreas: Visualized portions of the pancreas are sonographically normal. Spleen: Spleen is normal in size and homogeneous in echotexture. Kidneys: Kidneys are normal in size and echotexture. Right kidney measures 10.3 cm long; left kidney measures 12.2 cm long. Moderate bilateral hydronephrosis. No solid masses. Aorta: Visualized aorta is normal in caliber at less than 3 cm. Iliacs: Proximal common iliac arteries are normal in caliber at less than 2.5 cm. IVC: Intrahepatic inferior vena cava is patent. Miscellaneous: No free abdominal fluid. Bilateral ureteral jets are seen within the urinary bladder. IMPRESSION: 1. Bilateral hydronephrosis. Dictated by: Ernestine Julian M.D. on 11/25/2018 at 9:09 Approved by: Ernestine Julian M.D. on 11/25/2018 at 9:10
[2018-11-25 08:01] LABS: Calcium 7.3 mg/dL (8.4-10.2)
[2018-11-25 08:25] LABS: Lipase 22 U/L (23-300)
[2018-11-25 08:26] LABS: Lactate (Lactic Acid) 1.8 mmol/L (0.7-2.1)
--- NOTE | 2018-11-25 08:53 | PC.NURSE ---
recent hernia surgery, told not to cough because incision is glued. pt diaphoretic, and coughing non productive.
[2018-11-25] MEDS: CEFTRIAXONE 1 GM/50 ML FROZ.PIGGY IV (09:04)
--- NOTE | 2018-11-25 09:05 | PC.NURSE ---
pt just taken off oxygen to see how he does.
[2018-11-25 11:38] LABS: Adenovirus Not Detected (Not Detect); Bordetella pertussis Not Detected (Not Detect); Chlamydophila pneumoniae Not Detected (Not Detect); Coronavirus 229E Not Detected (Not Detect); Coronavirus HKU1 Not Detected (Not Detect); Coronavirus NL 63 Not Detected (Not Detect); Coronavirus OC43 Not Detected (Not Detect); Human Metapneumovirus Not Detected (Not Detect); Human Rhinovirus/Enterovirus Not Detected (Not Detect); Influenza A Not Detected (Not Detect); Influenza B Not Detected (Not Detect); Mycoplasma pneumoniae Not Detected (Not Detect); Parainfluenza Virus 1 Not Detected (Not Detect); Parainfluenza Virus 2 Not Detected (Not Detect); Parainfluenza Virus 3 Not Detected (Not Detect); Parainfluenza Virus 4 Not Detected (Not Detect); Respiratory Syncytial Virus Not Detected (Not Detect)
--- NOTE | 2018-11-25 12:31 | PM.HP.1 ---
History of Present Illness Date Patient Seen: 11/25/18 Chief complaint: Congestion Narrative: Costa Le is a 68-year-old male with developmental delay who recently underwent right inguinal hernia repair [address] Lynch who presented to the ED via EMS for worsening mildly productive cough, fever, and dyspnea. The patient's brother acts as the main historian for which the majority of the HPI was gathered. The patient's brother reports that the patient has had a dry cough for 6 weeks prior to his surgery. He then has developed wet cough mildly productive with shortness of breath for the last several days that has been progressive. He also reports nausea and fever yesterday evening. The patient denies headache, chest pain, abdominal pain, nausea, vomiting, chills, dysuria, or diarrhea. The patient endorses constipation. The patient has had sick contacts recently at home (adult nephew and children). He is recovering slowly from inguinal hernia repair. He has no other complaints. The patient's brother believes he likely has asthma that has not been diagnosed. PCP is Dr. Millan. Patient History Medical History Developmental delay (Acute) Asthma (Acute) GERD (gastroesophageal reflux disease) (Acute) Developmental delay, mild (Acute) GERD (gastroesophageal reflux disease) (Acute) Upper respiratory infection (Acute ~11/2018) Surgical History History of tonsillectomy (Acute) History of hernia repair (Acute) Hx of cholecystectomy (Acute) Family History Mother Dementia Father Pneumonia Social History details: Lives with family household members: family Smoking Status: Never smoker alcohol intake: never Family & Social History Family History Mother Dementia Father Pneumonia Social History: household members family Prior Living Arrangements House The patient lives with his brother and spouse. Safety & Behavioral: Feels Safe in Current Yes Environment Been Physically Hurt or No Threatened By a Person Suicidal Ideation Description None Suicide Plan Description No Plan Tobacco & Substance use: Smoking Status Never smoker alcohol intake never Substance Use Type does not use Meds Home Medications Medication Instructions Recorded Confirmed Type omeprazole 20 mg tablet,delayed 20 mg PO DAILY 09/23/18 11/18/18 History release ondansetron 4 mg PO QID PRN #10 tab 11/23/18 Rx oxycodone-acetaminophen [Percocet] 1 tab PO Q4-6H PRN #20 tab 11/23/18 Rx benzonatate 200 mg capsule 200 mg PO TID PRN #30 cap 11/24/18 Rx L-Tyrosine 3 tab PO DAILY 11/25/18 11/25/18 History benzonatate 200 mg PO TID 11/25/18 11/25/18 History cholecalciferol (vitamin D3) 2,000 unit PO DAILY 11/25/18 11/25/18 History [Vitamin D3] cranberry extract 300 mg PO DAILY 11/25/18 11/25/18 History garlic extract 1 cap PO DAILY 11/25/18 11/25/18 History multivitamin 1 tab PO DAILY 11/25/18 11/25/18 History omeprazole 20 mg PO DAILY 11/25/18 11/25/18 History ondansetron 4 mg PO Q6H PRN 11/25/18 11/25/18 History oxycodone-acetaminophen 1 tab PO Q4H PRN 11/25/18 11/25/18 History vitamin K2 100 meq PO DAILY 11/25/18 11/25/18 History Allergies Allergy/AdvReac Type Severity Reaction Status Date / Time No Known Drug Allergies Allergy Verified 11/25/18 12:48 Review of Systems Review of Systems A 10 system comprehensive review of systems was conducted with the patient and found to be negative except as above in the History of Present Illness. Exam Vital Signs (past 8 hours): - 11/25/18 06:45 11/25/18 07:00 11/25/18 07:30 Temperature 102.7 F Pulse Rate 95 93 H 90 Respiratory Rate 23 20 Blood Pressure Blood Pressure [Left Arm] 104/56 89/52 L 89/56 Pulse Oximetry 98 97 91 11/25/18 07:37 11/25/18 08:00 11/25/18 08:30 Temperature Pulse Rate 86 83 Respiratory Rate 20 Blood Pressure Blood Pressure [Left Arm] 92/57 L 97/60 Pulse Oximetry 98 96 98 11/25/18 09:00 11/25/18 09:05 11/25/18 10:00 Temperature 98.8 F Pulse Rate 81 83 81 Respiratory Rate 18 20 20 Blood Pressure Blood Pressure [Left Arm] 99/57 L 99/57 L 97/54 L Pulse Oximetry 98 93 97 11/25/18 10:45 11/25/18 11:00 Temperature 96.6 F L Pulse Rate 71 72 Respiratory Rate 18 18 Blood Pressure 103/73 Blood Pressure [Left Arm] 112/72 Pulse Oximetry 99 97 Oxygen Delivery Method Nasal Cannula Oxygen Flow Rate 2.5 Narrative Exam Narrative: General: Older gentleman lying in bed and in no acute distress, well-developed, well-nourished, developmentally delayed and appropriately interactive. HEENT: Normocephalic, atraumatic. External ears without defect. Pupils equal, round, and reactive to light. Anicteric sclerae, moist conjunctivae, and no lid lag. Oropharynx free of erythema and cobble stoning with moist mucosa. Neck: Supple with full range of motion. No lymphadenopathy or thyromegaly. Cardiovascular: Regular rate and rhythm without murmurs, rubs, or gallops appreciated. Pulmonary: Coarse lung sounds on right with scattered honchi and wheeze. Normal respiratory effort with no use of accessory muscles. Abdomen: Soft, bowel sounds present, nontender, nondistended. No hepatosplenomegaly or masses appreciated. Extremities: No clubbing, cyanosis, or edema. Skin: Normal temperature, turgor, and texture; no rash, ulcers, or subcutaneous nodules appreciated. Neurological: Cranial nerves grossly intact. Normal muscle strength, tone, and bulk. Reflexes, coordination, and sensory function within normal limits. No known gait impairment. Psychiatric: Normal mood and affect. Developmentally delayed but alert and oriented to person and place. Objective Labs Result Diagrams: 11/25/18 06:55 11/25/18 06:55 Labs: Laboratory Results - last 24 hr 11/25/18 11/25/18 11/25/18 06:40 06:55 06:55 WBC 11.1 H RBC 4.89 Hgb 15.0 Hct 45.0 MCV 92.0 MCH 30.7 MCHC 33.4 RDW 12.7 Plt Count 138 L Neut % (Auto) 93.4 H Lymph % (Auto) 3.3 L [place] % (Auto) 2.8 L Eos % (Auto) 0.3 L Baso % (Auto) 0.2 Neut # (Auto) 80002 H Lymph # (Auto) 400 L [place] # (Auto) 300 Eos # (Auto) 0 Baso # (Auto) 0 Sodium 133 L Potassium 4.2 Chloride 99 Carbon Dioxide 24 BUN 29 H Creatinine 1.00 Estimated GFR > 60.0 BUN/Creatinine Ratio 29.0 H Glucose 90 Lactate Calcium 7.3 L Total Bilirubin 1.5 H AST 22 ALT 29 Alkaline Phosphatase 63 Total Protein 5.7 L Albumin 3.1 L Globulin 2.6 Albumin/Globulin Ratio 1.2 Lipase Chlamy pneumoniae PCR Adenovirus (PCR) B.parapertussis DNA PCR Coronavirus OC43 (PCR) Coronavirus HKU1 (PCR) Coronavirus 229E (PCR) Coronavirus NL63 (PCR) Human Metapneumovir PCR Influenza Type A (PCR) Influenza Type B (PCR) Influenza A & B (PCR) Negative M. pneumoniae (PCR) Parainfluenza 1 (PCR) Parainfluenza 2 (PCR) Parainfluenza 3 (PCR) Parainfluenza 4 (PCR) RSV (PCR) Entero/Rhino (PCR) 11/25/18 11/25/18 11/25/18 07:48 07:48 10:17 WBC RBC Hgb Hct MCV MCH MCHC RDW Plt Count Neut % (Auto) Lymph % (Auto) [place] % (Auto) Eos % (Auto) Baso % (Auto) Neut # (Auto) Lymph # (Auto) [place] # (Auto) Eos # (Auto) Baso # (Auto) Sodium Potassium Chloride Carbon Dioxide BUN Creatinine Estimated GFR BUN/Creatinine Ratio Glucose Lactate 1.8 Calcium Total Bilirubin AST ALT Alkaline Phosphatase Total Protein Albumin Globulin Albumin/Globulin Ratio Lipase 22 L Chlamy pneumoniae PCR Not detected Adenovirus (PCR) Not detected B.parapertussis DNA PCR Not detected Coronavirus OC43 (PCR) Not detected Coronavirus HKU1 (PCR) Not detected Coronavirus 229E (PCR) Not detected Coronavirus NL63 (PCR) Not detected Human Metapneumovir PCR Not detected Influenza Type A (PCR) Not detected Influenza Type B (PCR) Not detected Influenza A & B (PCR) M. pneumoniae (PCR) Not detected Parainfluenza 1 (PCR) Not detected Parainfluenza 2 (PCR) Not detected Parainfluenza 3 (PCR) Not detected Parainfluenza 4 (PCR) Not detected RSV (PCR) Not detected Entero/Rhino (PCR) Not detected Assessment & Plan Assessment & Plan narrative: Costa Le is a 68-year-old male with developmental delay who recently underwent right inguinal hernia repair 3 days [address] Lynch who presented to the ED via EMS for worsening mildly productive cough, fever, and dyspnea and admitted for community-acquired pneumonia. 1. Acute right-sided community-acquired pneumonia, present on admission. Active. -Patient presented with progressive worsening mild productive cough, fever, and dyspnea. Recent sick contacts. -Chest x-ray interpreted by me demonstrated probable right-sided pneumonia with hazy infiltrate. -Ordered complete pneumonia workup including: Respiratory viral PCR negative. Strep pneumoniae and Legionella urine antigens, pending. Sputum culture, pending. Blood culture x2, pending. -Started on ceftriaxone in the ED. Continue ceftriaxone 2 g daily and azithromycin 500 mg daily x3 days For atypical coverage. -Ordered respiratory therapy evaluation and treatment for wheezing. Possible history of asthma undiagnosed. Patient also underwent recent surgery and ordered incentive spirometer for lung expansion and Acapella for mucus clearance. -Continue supportive therapy including: Tylenol for fever and Mucinex for congestion. -Ordered speech therapy evaluation for swallow to ensure patient is not aspirating. 2. Bilateral hydronephrosis, acuity unclear, present on admission. Active. -Patient has been urinating without difficulty. -Ultrasound demonstrated bilateral hydronephrosis without mass or obstruction. -Ordered KUB to rule out nephrolithiasis. -Ordered postvoid residual and will insert Victor if needed. If patient is having urinary retention without obstruction will start tamsulosin. 3. Developmental delay, chronic, present on admission. Stable. -Reorient patient frequently. 4. GERD, chronic, present on admission. Stable. -Continue home PPI. 5. Recent right inguinal hernia repair, present on admission. Stable. -Continue PT and OT. -Continue home oxycodone 5 mg every 4 hr as needed moderate to severe pain. May use Tylenol as needed for mild pain. Patient is admitted under inpatient status with expected length of stay greater than 2 midnights due to severity of presenting symptoms, risk of adverse event, and complexity of treatment plan. Quality VTE Deep Vein Thrombosis/Pulmonary Embolism Present on Admission: No
[2018-11-25] MEDS: CEFTRIAXONE 2 GM/50 ML FROZ.PIGGY IV (13:26)
[2018-11-25] MEDS: AZITHROMYCIN 500 MG in DEXTROSE 5% IN WATER 250 ML IV (14:00)
[2018-11-25] MEDS: PANTOPRAZOLE 20 MG TABLET PO (14:05)
[2018-11-25 14:10] LABS: Procalcitonin 0.13 ng/mL (<0.5)
--- NOTE | 2018-11-25 14:24 | PC.NURSE ---
Day Shift- Rec'd report from ChandaRN from ED at 1055. Pt arrived to unit at 1055, pt's brother Don (POA) at bedside as well. Pt in Droplet Isolation precautions while waiting for RVP. Pt A&OX4, able to follow direction, able to use call light for help. Rec'd call from Dr. Holland, pt no longer needs to be in Droplet Isolation precautions. MIXING PICKER TENDER bladder scanned pt at 1330 for approx 394mls, Victor catheter inserted by Another RN at [address] order. Urine returns were initially yellow and became pink tinged. When asked if pt has an enlarge prostate or any possible prostate issues, pt stated yes. When asked if a doctor told him this diagnosis, pt stated no.
[2018-11-25 15:18] LABS: Bacteria Urine None Seen
[2018-11-25 15:20] LABS: Appearance Urine UA CLOUDY; Bilirubin Urine UA NEGATIVE (NEGATIVE); Color Urine UA YELLOW; Glucose Urine UA NEGATIVE (Negative); Ketones Urine UA TRACE (NEGATIVE); Leukocyte Esterase Urine UA TRACE (NEGATIVE); Nitrite Urine UA NEGATIVE (Negative); Occult Blood Urine UA 3+ (Negative); Protein Urine UA 1+ (Negative); Urobilinogen Urine UA 0.2 E.U./dL (0.2); pH Urine UA 5.5 (4.5-8.0)
[2018-11-25 15:34] LABS: RBC Urine 10-30/HPF (0-5/HPF); WBC Urine 1-5/HPF (0-5/HPF)
[2018-11-25 15:35] LABS: Culture Indicated Urine Cult Not Indicated
--- NOTE | 2018-11-25 16:30 | PT.IPTN ---
Physical Therapy Treatment Note M2 PT-IP Current Condition Start: 11/25/18 17:25 Freq: NEEDED Status: Active Protocol: Document 11/25/18 16:30 AB (Rec: 11/25/18 17:43 AB [email or web address]) Physical Therapy Current Condition Current Condition Evaluation Date 11/25/18 Treatment Diagnosis PNA; generalized weakness Onset Date 11/25/18 Precautions Other Precautions droplet precautions M3 PT-IP Subjective Start: 11/25/18 17:25 Freq: NEEDED Status: Active Protocol: Document 11/25/18 16:30 AB (Rec: 11/25/18 17:43 AB [email or web address]) Subjective Physical Therapy Visit Type Type Initial Evaluation Visit Start Time 16:30 Visit Stop Time 17:07 Total Visit Minutes 37 Number of GRAPPLE SKIDDER OPERATOR Visits 0 Physical Therapy Visit Comments Patient Comments pt agreeable to get up Therapy Pain Assessment Pain Present Pain Present Denied Pain M4 PT-IP Mobility and Gait Start: 11/25/18 17:25 Freq: NEEDED Status: Active Protocol: Document 11/25/18 16:30 AB (Rec: 11/25/18 17:43 AB [email or web address]) PT-Bed Mobility Assessment Sit to Supine Sit to Supine Standby Assistance PT-Transfer Assessment Sit to and From Stand Sit to and from Stand Standby Assistance Equipment Transfer Assistive Device None Gait Belt Orthotic/Prosthetic Devices or Brace: No Transfers Transfer Destination Toilet Transfer Technique pt ambulated to the toilet Transfer Ability Level of Assist Contact Guard Assistance 1 Person Assistance Comments Mobility Comments pt requested to use the toilet and ambulated without AD CGA. pt ambulated out of the toilet without AD CGA and was able to complete handwashing standing by the [facility] SBA. Gait Assessment Gait Gait Assistance Required: Standby Assistance Contact Guard Assist Distance (Feet) 50 Able to Maintain Weight Bearing Status Yes During Gait Assistive Devices Assistive Device None Gait Belt Orthotic/Prosthetic Devices or Brace: No Gait Deviations General Gait Pattern Antalgic Factors Limiting Gait Function Factors Limiting Gait Function Decreased Activity Tolerance Poor Balance Comments Gait Comments pt completed ambulation without AD but tends to reach for burgos/things around him for steadiness. instructed pt for steadiness and was able to ambulate with better stability and less reaching for the all towards ends of ambulation PT-Balance Assessment Sitting Balance and Reactions Static Sitting Balance Ability Good Dynamic Sitting Balance Ability Good Standing Balance and Reactions Static Standing Balance Ability Fair Dynamic Standing Balance Ability Fair Device Used without AD M5 PT-IP Objective Assessments Start: 11/25/18 17:25 Freq: NEEDED Status: Active Protocol: Document 11/25/18 16:30 AB (Rec: 11/25/18 17:43 AB [email or web address]) Orientation Orientation/Cognition Level of Alertness Alert Orientation Name Place Situation Safety Awareness Understands Safety Issues Gross Range of Motion Lower Extremity ROM Assessment Within Functional Limits Strength Lower Extremity Strength Assessment Within Functional Limits Coordination Assessment Gross Coordination Gross Coordination WNL Sensation Assessment Sensation Gross Sensation WNL Muscle Tone Muscle Tone WNL Yes M6 PT-IP Treatment Start: 11/25/18 17:25 Freq: NEEDED Status: Active Protocol: Document 11/25/18 16:30 AB (Rec: 11/25/18 17:43 AB [email or web address]) Physical Therapy Treatment Education Education Provided Precautions Safety M7 PT-IP Assessment and Plan Start: 11/25/18 17:25 Freq: NEEDED Status: Active Protocol: Document 11/25/18 16:30 AB (Rec: 11/25/18 17:43 AB [email or web address]) PT Summary Assessment and Plan Potential Rehabilitation Potential Good Status of Condition at Evaluation Stable Summary Impairments Strength Balance Cognition Bed Mobility Transfers Gait Activity Tolerance Assessment Summary pt requiring SBA to CGA with mobility and plans to go home with his brother to assist him if needed. pt may go home when medically stable. Goals Bed Mobility Goal Independent Transfer Goal Independent Gait Goal Independent Gait Distance 300 Days to Meet Goals 3 Frequency of Treatment Frequency Of Treatment Once a Day Treatment Plan Physical Therapy Treatment Plan Bed Mobility Training Transfer Training Gait Training Therapeutic Exercise Balance Retraining Discharge Planning Hot or Cold Pack Neuromuscular Re-ed Coordination Retraining Manual Therapy Other Recommendations and Next Treatment ambulation Focus Recommendations To Nursing Amount of Assist Needed 1 Person Assist Discharge Recommendations PT Discharge Recommendations Home with Assistance
--- NOTE | 2018-11-25 16:37 | ST.IPCSEOM ---
Care Team Visit Care Team Role Provider Type Costa Millan MD Primary Care Provider Physician Specialty: Wound Care Address: [address] [place] [address], [id number] Email: [email or web address] DO Emergency Provider Physician Specialty: Emergency Medicine Address: [address] [place] [address], [id number] Email: Mildred Holland DO Admit Provider Physician Attending Provider Specialty: Internal Medicine Address: [address] [place] [address] Email: Past Medical History (Last Reviewed 11/25/18 @ 13:26 by Mildred Holland DO) Developmental delay (Acute Medical) Asthma (Acute Medical) GERD (gastroesophageal reflux disease) (Acute Medical) Developmental delay, mild (Acute Medical) GERD (gastroesophageal reflux disease) (Acute Medical) Upper respiratory infection (Acute Medical ~11/2018) IH Admit Speech-Language Pathology Swallow Evaluation 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 Holland Setting Assessment Location Acute Care Visit Type Note Type Initial Evaluation Next Note Type Next Note Type Treatment Note Patient Information Identification Type Name ID Wristband History Costa Le is a 68-year- old male with developmental delay who recently underwent right inguinal hernia repair [address] Lynch who presented to the ED via EMS for worsening mildly productive cough, fever, and dyspnea. The patient's brother acts as the main historian for which the majority of the HPI was gathered. The patient's brother reports that the patient has had a dry cough for 6 weeks prior to his surgery. He then has developed wet cough mildly productive with shortness of breath for the last several days that has been progressive . He also reports nausea and fever yesterday evening. The patient has had sick contacts recently at home (adult nephew and children). He is recovering slowly from inguinal hernia repair. He has no other complaints. The patient's brother believes he likely has asthma that has not been diagnosed. Subjective Observations Pt was upright in bed about to eat his lunch. Pt is vegan . Evaluation Liquids Trialed Thin Solids Trialed Puree Dysphagia Mechanical Dysphagia Advanced Regular Administration Type Tea Spoon Cup Single Sip Oral Impairment WFL Oral Strategies Upright at 90 degrees Oral Phase Comments pt oral phase WFL Pharyngeal Impairment WFL Pharyngeal Strategies Sitting Upright (90 deg) Pharyngeal Phase Comments Pharyngeal phase appears to be WFL. However, pt does present with a wet voice and wet cough. Cues to clear throat and swallow will clear residue . Pt needs cuing to clear wet quality. Pt may need to have instrumental assessment/MBS if pneumonia does not clear Findings Impressions Pt appears to present with no oropharyngeal dysphagia. However, cannot rule out pharyngeal dysphagia given wet quality post swallow. Imaging reported that the pt has right lung pneumonia, which may indicate aspiration. Monitor for aspiration during meals. Diet Recommendations Liquids Order Thin Diet Order Regular Medication Recommendations As Tolerated Aspiration Precautions Recommended Precautions Upright at 90 Degrees Additional Precautions Absolutely up at 90 degree angle; aspiration risk increases when reclined Treatment Plan Placement Recommendations after Home Discharge Appropriate for Therapy Yes Therapy Recommendations ST to monitor for overt s/sx aspiration; MBS if indicated Dysphagia Goals Pt will safely tolerate least restrictive diet without s/sx aspiration.
[2018-11-25] MEDS: ALBUTEROL/IPRATROPIUM 3 ML AMPUL INH (17:34)
[2018-11-25] MEDS: TAMSULOSIN 0.4 MG CAPSULE PO (19:42)
[2018-11-25] MEDS: guaiFENesin ER 600 MG TAB 1200 MG PO (19:43)
[2018-11-25] MEDS: DOCUSATE 100 MG CAPSULE PO (19:43)
[2018-11-25] MEDS: HEPARIN 5,000 UNIT/ML VIAL 5000 UNIT SUBCUT (19:44)
[2018-11-25] MEDS: SODIUM CHLORIDE 0.9% FLUSH 10 ML IV (19:45)
[2018-11-25] MEDS: ALBUTEROL 2.5 MG/3 ML NEB (ADULT) INH (19:46)
[2018-11-25] MEDS: BENZONATATE 100 MG CAPSULE PO (19:56)
[2018-11-26] VITALS (13 sets, daily range): BP systolic 96–128; BP diastolic 55–81; PULSE 69–90; RESP 14–20; TEMP 36.6–37.2; O2SAT 96–100
[2018-11-26 06:10] LABS: Add Manual Diff / Slide Review NO; Basophils Absolute Auto 0 /uL (0-100); Basophils Percent Auto 0.1 % (0-2); Eosinophils Absolute Auto 100 /uL (0-450); Eosinophils Percent Auto 0.9 % (2-4); Hematocrit 36.5 % (41-53); Hemoglobin 12.4 g/dL (13.5-17.5); Lymphocytes Absolute Auto 500 /uL (1100-4500); Lymphocytes Percent Auto 6.2 % (25-40); Mean Corpuscular HGB Conc 33.8 % (30-36); Mean Corpuscular Hemoglobin 31.3 PG (26-34); Mean Corpuscular Volume 92.6 fL (80-100); Monocytes Absolute Auto 700 /uL (0-900); Monocytes Percent Auto 8.9 % (3-14); Neutrophils Absolute Auto 7000 /uL (1500-7000); Neutrophils Percent Auto 83.9 % (50-75); Platelet Count 96 X10^3/uL (150-400); Red Blood Cell Count 3.94 X10^6/uL (4.5-5.9); Red Cell Distribution Width 12.8 % (11.6-14.8); White Blood Cell Count 8.4 X10^3/uL (4.5-11.0)
[2018-11-26 06:17] LABS: Blood Urea Nitrogen 21 mg/dL (9-20); Calcium 7.3 mg/dL (8.4-10.2); Carbon Dioxide 27 mmol/L (22-32); Chloride 102 mmol/L (98-107); Estimated Glomerular Filt Rate > 60.0 mL/min (>60); Glucose 102 mg/dL (80-110); HEMOLYSIS < 15 (0-50); Potassium 4.6 mmol/L (3.4-5.1); Sodium 134 mmol/L (137-145)
[2018-11-26 07:05] LABS: Procalcitonin 5.13 ng/mL (<0.5)
--- NOTE | 2018-11-26 07:42 | P.PN_ITS ---
Subjective Date Patient Seen: 11/26/18 Interval history: Costa Le is a 68-year-old male with developmental delay who recently underwent right inguinal hernia repair 3 days [address] performed [address] Dr[address] Lynch who pres ented to the ED via EMS for worsening mildly productive cough, fever, and dyspnea and admitted for community-acquired pneumonia. The patient is resting in bedside chair comfortably. He is developmentally delayed, therefore, questions have to be asked several times in different approaches to get true answer. He endorses cough that is improving And mild subjective fever. He denies headache, shortness of breath, chest pain, abdominal pain, nausea, vomiting, chills, or diarrhea. He has been mildly constipated due to narcotics and a bowel regimen has been put in place. He is voiding and eliminating without difficulty. He is up ambulating with assistance. Exam Vital Signs (past 8 hours): - 11/26/18 00:05 11/26/18 03:30 Temperature 99.0 F 98.8 F Pulse Rate 75 78 Respiratory Rate 14 16 Blood Pressure 96/59 L 116/58 L Pulse Oximetry 99 97 Oxygen Delivery Method Nasal Cannula Oxygen Flow Rate 2 Narrative Exam Narrative: General: Older gentleman lying in bed and in no acute distress, well-developed, well-nourished, developmentally delayed and appropriately interactive. HEENT: Normocephalic, atraumatic. External ears without defect. Pupils equal, round, and reactive to light. Anicteric sclerae, moist conjunctivae, and no lid lag. Neck: Supple with full range of motion. No lymphadenopathy or thyromegaly. Cardiovascular: Regular rate and rhythm without murmurs, rubs, or gallops appreciated. Pulmonary: Coarse lung sounds on right which are improved with scattered rhonchi. No wheeze today. Normal respiratory effort with no use of accessory muscles. Abdomen: Soft, bowel sounds present, nontender, nondistended. No hepatosplenomegaly or masses appreciated. Genitourinary: Victor catheter in place. Ecchymosis around suprapubic and right inguinal surgical scar which is healing well without exudate. Extremities: No clubbing, cyanosis, or edema. Skin: Normal temperature, turgor, and texture; no rash, ulcers, or subcutaneous nodules appreciated. Neurological: Cranial nerves grossly intact. Psychiatric: Normal mood and affect. Developmentally delayed but alert and orie nted to person and place. Objective Labs Result Diagrams: 11/26/18 05:34 11/26/18 05:34 Labs: Laboratory Results - last 24 hr 11/25/18 11/25/18 11/25/18 06:55 07:48 07:48 WBC RBC Hgb Hct MCV MCH MCHC RDW Plt Count Neut % (Auto) Lymph % (Auto) Alexander % (Auto) Eos % (Auto) Baso % (Auto) Neut # (Auto) Lymph # (Auto) Alexander # (Auto) Eos # (Auto) Baso # (Auto) Sodium 133 L Potassium 4.2 Chloride 99 Carbon Dioxide 24 BUN 29 H Creatinine 1.00 Estimated GFR > 60.0 BUN/Creatinine Ratio 29.0 H Glucose 90 Lactate 1.8 Calcium 7.3 L Total Bilirubin 1.5 H AST 22 ALT 29 Alkaline Phosphatase 63 Total Protein 5.7 L Albumin 3.1 L Globulin 2.6 Albumin/Globulin Ratio 1.2 Lipase 22 L Procalcitonin Urine Color Urine Appearance Urine pH Ur Specific Leo Urine Protein Urine Glucose (UA) Urine Ketones Urine Occult Blood Urine Nitrate Urine Bilirubin Urine Urobilinogen Ur Leukocyte Esterase Urine RBC Urine WBC Urine Bacteria Ur Culture Indicated? Chlamy pneumoniae PCR Adenovirus (PCR) B.parapertussis DNA PCR Coronavirus OC43 (PCR) Coronavirus HKU1 (PCR) Coronavirus 229E (PCR) Coronavirus NL63 (PCR) Human Metapneumovir PCR Influenza Type A (PCR) Influenza Type B (PCR) M. pneumoniae (PCR) Parainfluenza 1 (PCR) Parainfluenza 2 (PCR) Parainfluenza 3 (PCR) Parainfluenza 4 (PCR) RSV (PCR) Entero/Rhino (PCR) 11/25/18 11/25/18 11/25/18 07:48 10:17 15:17 WBC RBC Hgb Hct MCV MCH MCHC RDW Plt Count Neut % (Auto) Lymph % (Auto) Alexander % (Auto) Eos % (Auto) Baso % (Auto) Neut # (Auto) Lymph # (Auto) Alexander # (Auto) Eos # (Auto) Baso # (Auto) Sodium Potassium Chloride Carbon Dioxide BUN Creatinine Estimated GFR BUN/Creatinine Ratio Glucose Lactate Calcium Total Bilirubin AST ALT Alkaline Phosphatase Total Protein Albumin Globulin Albumin/Globulin Ratio Lipase Procalcitonin 0.13 Urine Color Yellow Urine Appearance Cloudy Urine pH 5.5 Ur Specific Leo 1.020 Urine Protein 1+ H Urine Glucose (UA) Negative Urine Ketones Trace H Urine Occult Blood 3+ H Urine Nitrate Negative Urine Bilirubin Negative Urine Urobilinogen 0.2 Ur Leukocyte Esterase Trace H Urine RBC 10-30/hpf H Urine WBC 1-5/hpf Urine Bacteria None seen Ur Culture Indicated? Cult not indicated Chlamy pneumoniae PCR Not detected Adenovirus (PCR) Not detected B.parapertussis DNA PCR Not detected Coronavirus OC43 (PCR) Not detected Coronavirus HKU1 (PCR) Not detected Coronavirus 229E (PCR) Not detected Coronavirus NL63 (PCR) Not detected Human Metapneumovir PCR Not detected Influenza Type A (PCR) Not detected Influenza Type B (PCR) Not detected M. pneumoniae (PCR) Not detected Parainfluenza 1 (PCR) Not detected Parainfluenza 2 (PCR) Not detected Parainfluenza 3 (PCR) Not detected Parainfluenza 4 (PCR) Not detected RSV (PCR) Not detected Entero/Rhino (PCR) Not detected 11/26/18 11/26/18 11/26/18 05:34 05:34 05:34 WBC 8.4 RBC 3.94 L Hgb 12.4 L Hct 36.5 L MCV 92.6 MCH 31.3 MCHC 33.8 RDW 12.8 Plt Count 96 L Neut % (Auto) 83.9 H Lymph % (Auto) 6.2 L Alexander % (Auto) 8.9 Eos % (Auto) 0.9 L Baso % (Auto) 0.1 Neut # (Auto) 7000 Lymph # (Auto) 500 L Alexander # (Auto) 700 Eos # (Auto) 100 Baso # (Auto) 0 Sodium 134 L Potassium 4.6 Chloride 102 Carbon Dioxide 27 BUN 21 H Creatinine 1.00 Estimated GFR > 60.0 BUN/Creatinine Ratio 21.0 Glucose 102 Lactate Calcium 7.3 L Total Bilirubin AST ALT Alkaline Phosphatase Total Protein Albumin Globulin Albumin/Globulin Ratio Lipase Procalcitonin 5.13 H Urine Color Urine Appearance Urine pH Ur Specific Leo Urine Protein Urine Glucose (UA) Urine Ketones Urine Occult Blood Urine Nitrate Urine Bilirubin Urine Urobilinogen Ur Leukocyte Esterase Urine RBC Urine WBC Urine Bacteria Ur Culture Indicated? Chlamy pneumoniae PCR Adenovirus (PCR) B.parapertussis DNA PCR Coronavirus OC43 (PCR) Coronavirus HKU1 (PCR) Coronavirus 229E (PCR) Coronavirus NL63 (PCR) Human Metapneumovir PCR Influenza Type A (PCR) Influenza Type B (PCR) M. pneumoniae (PCR) Parainfluenza 1 (PCR) Parainfluenza 2 (PCR) Parainfluenza 3 (PCR) Parainfluenza 4 (PCR) RSV (PCR) Entero/Rhino (PCR) Assessment & Plan Assessment & Plan narrative: Cotsa Le is a 68-year-old male with developmental delay who recently und erwent right inguinal hernia repair [address] days [address] Lynch who presented to the ED via EMS for worsening mildly productive cough, fever, and dyspnea and admitted for community-acquired pneumonia. 1. Acute right-sided community-acquired pneumonia, present on admission. Active. -Patient presented with progressive worsening mild productive cough, fever, and dyspnea. Recent sick contacts. -Chest x-ray interpreted by me demonstrated probable right-sided pneumonia with hazy infiltrate. -Ordered complete pneumonia workup including: Respiratory viral PCR negative. Strep pneumoniae and Legionella urine antigens, pending. Sputum culture has not been collected as patient has minimally productive cough. Blood culture x2, pending. -Started on ceftriaxone in the ED. Continue ceftriaxone 2 g daily and azithromycin 500 mg daily x 3 days for atypical coverage. -Ordered respiratory therapy evaluation and treatment for wheezing. Possible history of asthma undiagnosed. Patient also underwent recent surgery and ordered incentive spirometer for lung expansion and Acapella for mucus clearance. -Continue supportive therapy including: Tylenol for fever and Mucinex for congestion. -Ordered speech therapy evaluation for swallow to ensure patient is not aspirating. 2. Bilateral hydronephrosis, acuity unclear, present on admission. Active. -Patient has been urinating without difficulty. -Ultrasound demonstrated bilateral hydronephrosis without mass or obstruction. -KUB did not demonstrate any nephrolithiasis or obstruction. -Patient had 400 cc postvoid residual yesterday and Victor catheter was inserted. Started tamsulosin 0.4 mg daily. Will try removing Victor catheter tomorrow. 3. Developmental delay, chronic, present on admission. Stable. -Reorient patient frequently. 4. GERD, chronic, present on admission. Stable. -Continue home PPI. 5. Recent right inguinal hernia repair, present on admission. Stable. -Continue PT and OT. -Continue home oxycodone 5 mg every 4 hr as needed moderate to severe pain. May use Tylenol as needed for mild pain. Disposition: Likely to discharge in 1-2 days depending on improvement in pneumonia and breathing with treatment. Quality VTE Deep Vein Thrombosis/Pulmonary Embolism Present on Admission: No
[2018-11-26] MEDS: ALBUTEROL/IPRATROPIUM 3 ML AMPUL INH ×3 (07:59→18:51)
[2018-11-26] MEDS: TAMSULOSIN 0.4 MG CAPSULE PO (09:33)
[2018-11-26] MEDS: DOCUSATE 100 MG CAPSULE PO ×2 (09:33→21:47)
[2018-11-26] MEDS: BENZONATATE 100 MG CAPSULE PO (09:33)
[2018-11-26] MEDS: guaiFENesin ER 600 MG TAB 1200 MG PO ×2 (09:33→21:47)
[2018-11-26] MEDS: ACETAMINOPHEN 325 MG TABLET 650 MG PO (09:33)
[2018-11-26] MEDS: HEPARIN 5,000 UNIT/ML VIAL 5000 UNIT SUBCUT ×2 (09:34→21:47)
[2018-11-26] MEDS: POLYETHYLENE GLYCOL 3350 17 GM POWD.PACK PO (09:35)
[2018-11-26] MEDS: SODIUM CHLORIDE 0.9% FLUSH 10 ML IV ×2 (09:36→21:47)
--- NOTE | 2018-11-26 11:38 | PT.IPTN ---
Current Diagnoses Pneumonia, unspecified organism (11/25/18) Physical Therapy Treatment Note M2 PT-IP Current Condition Start: 11/25/18 17:25 Freq: NEEDED Status: Active Protocol: Document 11/25/18 16:30 AB (Rec: 11/25/18 17:43 AB [email or web address]) Physical Therapy Current Condition Current Condition Evaluation Date 11/25/18 Treatment Diagnosis PNA; generalized weakness Onset Date 11/25/18 Precautions Other Precautions droplet precautions M3 PT-IP Subjective Start: 11/25/18 17:25 Freq: NEEDED Status: Active Protocol: Document 11/26/18 10:25 GGD (Rec: 11/26/18 11:38 GGD [id number]) Subjective Physical Therapy Visit Type Type Treatment Note Visit Start Time 10:20 Visit Stop Time 10:35 Total Visit Minutes 15 Number of DOCUMENTUM CONSULTANT Visits 1 Physical Therapy Visit Comments Patient Comments Pt willing to work with therapy. M4 PT-IP Mobility and Gait Start: 11/25/18 17:25 Freq: NEEDED Status: Active Protocol: Document 11/26/18 10:25 GGD (Rec: 11/26/18 11:38 GGD [id number]) PT-Bed Mobility Assessment Supine to Sit Supine to Sit Standby Assistance Bedrails PT-Transfer Assessment Sit to and From Stand Sit to and from Stand Standby Assistance Equipment Transfer Assistive Device None Gait Belt Orthotic/Prosthetic Devices or Brace: No Transfers Transfer Destination Chair Transfer Ability Level of Assist Contact Guard Assistance 1 Person Assistance Gait Assessment Gait Gait Assistance Required: Standby Assistance Contact Guard Assist Distance (Feet) 350 Able to Maintain Weight Bearing Status Yes During Gait Assistive Devices Assistive Device None Gait Belt Orthotic/Prosthetic Devices or Brace: No Gait Deviations General Gait Pattern Antalgic Factors Limiting Gait Function Factors Limiting Gait Function Decreased Activity Tolerance Poor Balance Stair Climbing Assessment Evaluation Level of Assist On Stairs Standby Assistance Contact Guard Assistance Devices Stair Climbing Assistive Devices None Left Railing Technique/Endurance Stair Climbing Direction Ascend and Descend Stair Climbing Technique Step Over Step Step to Step Number of Steps Climbed 3 Query Text: Stair Climbing Set # Repetitions (reps) 3 Comments Stair Climbing Comments 2 reps of 3 steps with left rail with step over step to ascend and step to step to descend with SBA. 1 set of 3 steps without rails with step to step and CGA. M5 PT-IP Objective Assessments Start: 11/25/18 17:25 Freq: NEEDED Status: Active Protocol: Document 11/25/18 16:30 AB (Rec: 11/25/18 17:43 AB [email or web address]) Orientation Orientation/Cognition Level of Alertness Alert Orientation Name Place Situation Safety Awareness Understands Safety Issues Gross Range of Motion Lower Extremity ROM Assessment Within Functional Limits Strength Lower Extremity Strength Assessment Within Functional Limits Coordination Assessment Gross Coordination Gross Coordination WNL Sensation Assessment Sensation Gross Sensation WNL Muscle Tone Muscle Tone WNL Yes M6 PT-IP Treatment Start: 11/25/18 17:25 Freq: NEEDED Status: Active Protocol: Document 11/25/18 16:30 AB (Rec: 11/25/18 17:43 AB [email or web address]) Physical Therapy Treatment Education Education Provided Precautions Safety M7 PT-IP Assessment and Plan Start: 11/25/18 17:25 Freq: NEEDED Status: Active Protocol: Document 11/26/18 10:25 GGD (Rec: 11/26/18 11:38 GGD [id number]) PT Summary Assessment and Plan Summary Assessment Summary Pt improving with gait stability. He was safe and stable with stair mobility. He is safe to D/C home with his brother when medically stable. Frequency of Treatment Frequency Of Treatment Once a Day Treatment Plan Physical Therapy Treatment Plan Bed Mobility Training Transfer Training Gait Training Therapeutic Exercise Balance Retraining Discharge Planning Hot or Cold Pack Neuromuscular Re-ed Coordination Retraining Manual Therapy Other Recommendations and Next Treatment ambulation Focus Recommendations To Nursing Amount of Assist Needed 1 Person Assist Discharge Recommendations PT Discharge Recommendations Home with Assistance
--- NOTE | 2018-11-26 11:57 | OT.IP.EVAL ---
Current Diagnoses Pneumonia, unspecified organism (11/25/18) Past Medical History (Last Reviewed 11/25/18 @ 13:26 by Mildred Holland DO) Developmental delay (Acute) Asthma (Acute) GERD (gastroesophageal reflux disease) (Acute) Developmental delay, mild (Acute) GERD (gastroesophageal reflux disease) (Acute) Upper respiratory infection (Acute ~11/2018) Surgical History (Last Reviewed 11/25/18 @ 13:26 by Mildred Holland DO) History of tonsillectomy (Acute) History of hernia repair (Acute) Hx of cholecystectomy (Acute) Occupational Therapy Inpatient Evaluation/Re-Eval M1 PT/OT-IP Prior Functional Status Start: 11/25/18 17:25 Freq: NEEDED Status: Active Protocol: Document 11/25/18 16:30 AB (Rec: 11/25/18 17:43 AB [email or web address]) Medical Review Prior Functional Status Medical History Reviewed Yes Communication able to make needs known Mobility and Gait pt stated that he is independent with all mobilities and ambulation without AD Social History Household Members family Living Arrangements House Number of Floors (Floors) Two Floors Number of Stairs To Enter/Railing? no steps to enter; pt stays on main level of the house Home Environment Standard Height Toilet Tub/Shower M1 PT/OT-IP Prior Functional Status Start: 11/26/18 11:36 Freq: NEEDED Status: Active Protocol: Document 11/26/18 11:37 [facility] (Rec: 11/26/18 11:57 [facility] [email or web address]) Medical Review Prior Functional Status Medical History Reviewed Yes Communication able to make needs known Mobility and Gait pt stated that he is independent with all mobilities and ambulation without AD Activities of Daily Living and IADL's Pt was independent and actively cooked and baked at home. Social History Household Members family Living Arrangements House Number of Floors (Floors) Two Floors Number of Stairs To Enter/Railing? no steps to enter; pt stays on main level of the house Home Environment Standard Height Toilet Tub/Shower Additional Social History Comment There is a walk in shower in brother's master bedroom with built in shower seat if pt needing to sit for showers. Pt had recent inguinal repair and 3 days ago developed wet cough and SOB. M2 OT-IP Current Condition Start: 11/26/18 11:36 Freq: Status: Active Protocol: Document 11/26/18 11:37 [facility] (Rec: 11/26/18 11:57 [facility] [email or web address]) Occupational Therapy Current Condition Current Condition Evaluation Date 11/26/18 Treatment Diagnosis PNA, weakness Diagnosis Onset Date 11/25/18 M3 OT- IP Subjective and Pain Start: 11/26/18 11:36 Freq: Status: Active Protocol: Document 11/26/18 11:37 [facility] (Rec: 11/26/18 11:57 [facility] [email or web address]) OT- Subjective Occupational Therapy Visit Type Type Initial Evaluation Visit Start Time 10:20 Visit Stop Time 11:14 Total Visit Minutes 54 Occupational Therapy Visit Comments Patient Comments Pt agreeable to get up and take a shower. OT Pain Assessment Pain When Pain Assessed At Rest Pain Present Pain Present Denied Pain M4 OT- IP ADL's Start: 11/26/18 11:36 Freq: Status: Active Protocol: Document 11/26/18 11:37 [facility] (Rec: 11/26/18 11:57 [facility] [email or web address]) OT ADL-Dressing General Eval Lower Body Dressing Ability Moderate Assistance Areas Needing Assistance Socks Comments OT Dressing Comments Pt states has discomfort and unable to grisel right sock at this time. Therefore issued and educated pt on sock aid. OT ADL-Toileting General Evaluation Toileting Ability Standby Assistance OT ADL-Bathing Bathing Type Bathing Type Shower General Evaluation Bathing Ability Minimal Assistance Areas Needing Assistance Wash/Dry Upper Body Wash/Dry Lower Extremities Devices Bathing Equipment Grab Bars Comments OT Bathing Comments Pt able to stand for showering but relies on grab bars in the shower which he does not have at home. Pt needing assist to wash his back and dry his feet. Recommended brother to be there for showering initially or use of shower in walker. M5 OT- IP IADL's Start: 11/26/18 11:36 Freq: Status: Active Protocol: Document 11/26/18 11:37 [facility] (Rec: 11/26/18 11:57 [facility] [email or web address]) OT-Instrumental Activities of Daily Living Home Safety Awareness Home Safety Comments Pt's brother states will assist pt as needed at home. M6 OT- IP Functional Cognition Start: 11/26/18 11:36 Freq: Status: Active Protocol: Document 11/26/18 11:37 [facility] (Rec: 11/26/18 11:57 [facility] [email or web address]) Cognitive Factors Limiting Selfcare Function Cognitive Ability Level of Alertness Alert Patient Orientation Name Place Attention Span Ability Capable of Focused Attention Capable of Sustained Attention Ability to Follow Commands Able to Follow One Step Commands Safety Awareness Underestimates Need for Assistance Cognitive Comments Cognitive Assessment Comments Pt needing reminders to sit if needed as a little shaky while trying to put one foot up at a time on shower chair to dry his feet. OT- Vision and Hearing OT- Hearing Assessment OT- Hearing Assessment WFL M7 OT- IP Mobility and Balance Start: 11/26/18 11:36 Freq: Status: Active Protocol: Document 11/26/18 11:37 [facility] (Rec: 11/26/18 11:57 [facility] [email or web address]) OT-Transfer Assessment Sit to and From Stand Sit to and from Stand Standby Assistance Transfers Transfer Ability Standby Assistance Comments Mobility Comments Pt able to walk into the shower with SBA and to and from the recliner to bathroom. OT- Balance Assessment Sitting Balance and Reactions Static Sitting Balance Ability Normal Dynamic Sitting Balance Ability Good Standing Balance and Reactions Static Standing Balance Ability Good Dynamic Standing Balance Ability Fair M8 OT- IP Objective Assessments Start: 11/26/18 11:36 Freq: Status: Active Protocol: Document 11/26/18 11:37 [facility] (Rec: 11/26/18 11:57 [facility] [email or web address]) OT Gross Range of Motion Upper Extremity Range of Motion Assessment Within Functional Limits OT Strength Upper Extremity Strength Assessment Within Functional Limits M9 OT- IP Assessment and Plan Start: 11/26/18 11:36 Freq: Status: Active Protocol: Document 11/26/18 11:37 [facility] (Rec: 11/26/18 11:57 [facility] [email or web address]) OT Summary Assessment and Plan Potential Rehabilitation Potential Good Analytic Complexity at Evaluation Low Summary OT Impairments Functional Mobility Bathing Progress Towards Goals Goals Met Assessment Summary Pt low complexity and doing well for OT needs, mainly needing assist for LB dressing for socks but able to give pt sock aid. Pt's brother to be able to provide assist and supervision as needed especially for showering needs . Therefore discharge from OT services at this time after OT eval. Goals Dressing Goal Standby Assistance Bathing Goal Standby Assistance Days to Meet Goals 1 Frequency of Treatment Frequency Of Treatment Once a Day Treatment Plan OT Treatment Plan Patient/Family Education Discharge Planning Discharge Recommendations OT Discharge Recommendations Home with Assistance
--- NOTE | 2018-11-26 12:38 | CM.DANOTE ---
DCP: Case received, EMR reviewed and met with patient. Introduced self and role. DCP template completed with information currently available. Patient is a 68 year old male who admitted yesterday morning to the care of the hospitalist team. PCP: Dr. Millan. Payer: confirmed; [employer] Medicare. Patient came to hospital via ambulance due to cough, fever, with a temp of 103. Patient carries diagnosis of Pneumonia. Patient is developmentally delayed, but independent at home. Met briefly with patient, pleasant, alert and oriented. He had been up brushing his teeth at the sink, when this caser in came into room. He stated that he lives with friends. He also stated that he is able to drive as well. P: DCP to continue to follow closely. Patient should be able to return home when stable. Will continue to monitor progress here in hospital. Julia Bustillo RN/Apron Worker
[2018-11-26] MEDS: AZITHROMYCIN 500 MG in DEXTROSE 5% IN WATER 250 ML IV (13:19)
--- NOTE | 2018-11-26 16:12 | PC.NURSE ---
Post-op: SI'm feeling better but I'm still weak. Pt has been up with PT and staff in room/hallways. Took a shower today and he felt much better after that. Concerned about being constipated, sm amts of flatus only and he was started on some miralax today and he knows he can have some mom tonight. Hopefully will have a bm. Victor with tea/red looking uop, sediment and 1 sm clot seen. Does have extensive bruising and edema of the pubis, penis and scrotal area. Did receive tylenol for pain once this morning, has needed nothing since. Diet has been tolerated with out problems. Cont w/poc.
[2018-11-27 00:20] VITALS: BP 141/118; PULSE 90; RESP 18; TEMP 36.2; O2SAT 97
[2018-11-27] MEDS: BENZONATATE 100 MG CAPSULE PO ×2 (00:31→09:15)
[2018-11-27 04:00] VITALS: BP 96/50; PULSE 72; RESP 14; TEMP 36.6; O2SAT 94
[2018-11-27 05:00] VITALS: BP 101/79
[2018-11-27] MEDS: ALBUTEROL/IPRATROPIUM 3 ML AMPUL INH ×2 (06:12→12:43)
[2018-11-27 06:13] VITALS: PULSE 87; RESP 22; O2SAT 98
[2018-11-27] MEDS: PANTOPRAZOLE 20 MG TABLET PO (06:51)
--- NOTE | 2018-11-27 06:57 | PC.NURSE ---
Patient has refused offer of pain meds this shift. Inguinal right groin is dermabonded, bruising is almost gone on this POD5.
[2018-11-27 08:00] VITALS: BP 106/68; PULSE 90; RESP 16; TEMP 36.6; O2SAT 96; O2SAT 98
[2018-11-27 08:20] LABS: Add Manual Diff / Slide Review NO; Basophils Absolute Auto 0 /uL (0-100); Basophils Percent Auto 0.2 % (0-2); Eosinophils Absolute Auto 100 /uL (0-450); Eosinophils Percent Auto 3.1 % (2-4); Hemoglobin 11.4 g/dL (13.5-17.5); Lymphocytes Absolute Auto 600 /uL (1100-4500); Lymphocytes Percent Auto 11.7 % (25-40); Mean Corpuscular HGB Conc 33.7 % (30-36); Mean Corpuscular Hemoglobin 31.3 PG (26-34); Mean Corpuscular Volume 92.8 fL (80-100); Monocytes Absolute Auto 500 /uL (0-900); Neutrophils Absolute Auto 3600 /uL (1500-7000); Platelet Count 120 X10^3/uL (150-400); Red Blood Cell Count 3.66 X10^6/uL (4.5-5.9); Red Cell Distribution Width 12.8 % (11.6-14.8); White Blood Cell Count 4.8 X10^3/uL (4.5-11.0)
[2018-11-27 08:21] LABS: Blood Urea Nitrogen 12 mg/dL (9-20); Calcium 7.7 mg/dL (8.4-10.2); Carbon Dioxide 25 mmol/L (22-32); Chloride 106 mmol/L (98-107); Estimated Glomerular Filt Rate > 60.0 mL/min (>60); Glucose 96 mg/dL (80-110); HEMOLYSIS < 15 (0-50); Potassium 3.7 mmol/L (3.4-5.1); Sodium 138 mmol/L (137-145)
[2018-11-27 08:42] LABS: Procalcitonin 2.75 ng/mL (<0.5)
[2018-11-27] MEDS: CEFTRIAXONE 2 GM/50 ML FROZ.PIGGY IV (09:14)
[2018-11-27] MEDS: HEPARIN 5,000 UNIT/ML VIAL 5000 UNIT SUBCUT (09:14)
[2018-11-27] MEDS: DOCUSATE 100 MG CAPSULE PO (09:15)
[2018-11-27] MEDS: guaiFENesin ER 600 MG TAB 1200 MG PO (09:15)
[2018-11-27] MEDS: TAMSULOSIN 0.4 MG CAPSULE PO (09:15)
[2018-11-27] MEDS: POLYETHYLENE GLYCOL 3350 17 GM POWD.PACK PO (09:15)
[2018-11-27] MEDS: ACETAMINOPHEN 325 MG TABLET 650 MG PO (09:15)
[2018-11-27] MEDS: SODIUM CHLORIDE 0.9% FLUSH 10 ML IV (09:16)
[2018-11-27] MEDS: AZITHROMYCIN 500 MG in DEXTROSE 5% IN WATER 250 ML IV (12:38)
[2018-11-27 12:43] VITALS: PULSE 62; RESP 22; O2SAT 99
--- NOTE | 2018-11-27 13:21 | PM.DS.1 ---
History of Present Illness Date Patient Seen: 11/25/18 Chief complaint: Congestion Narrative: Written by myself Dr. Holland: Costa Le is a 68-year-old male with developmental delay who recently underwent right inguinal hernia repair [address] days [address] Lynch who presented to the ED via EMS for worsening mildly productive cough, fever, and dyspnea. The patient's brother acts as the main historian for which the majority of the HPI was gathered. The patient's brother reports that the patient has had a dry cough for 6 weeks prior to his surgery. He then has developed wet cough mildly productive with shortness of breath for the last several days that has been progressive. He also reports nausea and fever yesterday evening. The patient denies headache, chest pain, abdominal pain, nausea, vomiting, chills, dysuria, or diarrhea. The patient endorses constipation. The patient has had sick contacts recently at home (adult nephew and children). He is recovering slowly from inguinal hernia repair. He has no other complaints. The patient's brother believes he likely has asthma that has not been diagnosed. PCP is Dr. Millan. Discharge Providers Date of admission: 11/25/18 10:32 Discharge Date: 11/27/18 Primary care physician: Costa Millan MD Consults: 11/25/18 12:29 Consult to Respiratory Therapy Evaluate & Treat Comment: Nebs for wheezing Physician Instructions: Evaluate and treat 11/25/18 12:30 Consult to Speech Therapy Evaluate & Treat Comment: evaluate swallow for aspiration Physician Instructions: Evaluate and treat 11/25/18 13:30 Consult to Occupational Therapy Evaluate & Treat Comment: Physician Instructions: Evaluate and treat Consult to Physical Therapy Evaluate & Treat Comment: Physician Instructions: Evaluate and Treat 11/27/18 13:12 Consult to Home Health Routine Comment: Reason For Exam: Nursing, P.T, O.T. Discharge provider: Mildred Holland DO Summary Discharge Diagnosis: 1. Acute right-sided community-acquired bacterial pneumonia, present on admission. Resolving. 2. Bilateral hydronephrosis, acuity unclear, present on admission. Resolved. 3. Developmental delay, chronic, present on admission. Stable. 4. GERD, chronic, present on admission. Stable. 5. Recent right inguinal hernia repair, present on admission. Stable. Hospital Course: Costa Le is a 68-year-old male with developmental delay who recently underwent right inguinal hernia repair [address] days [address] Lynch who presented to the ED via EMS for worsening mildly productive cough, fever, and dyspnea and admitted for community-acquired pneumonia. 1. Acute right-sided community-acquired bacterial pneumonia, present on admission. Resolving. -Patient presented with progressive worsening mild productive cough, fever, and dyspnea. Recent sick contacts. -WBC initially elevated at 11.1 and procalcitonin initially negative and peaked at 5.13 and trended down. -Chest x-ray interpreted by me demonstrated probable right-sided pneumonia with hazy infiltrate. -Ordered complete pneumonia workup including: Respiratory viral PCR negative. Strep pneumoniae and Legionella urine antigens, pending. Sputum culture was not collected as patient has minimally productive cough. Blood culture x2 no growth to date. -Started on ceftriaxone in the ED. Continue ceftriaxone 2 g daily and azithromycin 500 mg daily x 3 days for atypical coverage. Discharged on Augmentin for 5 days to complete a total of 7 day antibiotic course. -Ordered respiratory therapy evaluation and treatment for wheezing. Possible history of asthma undiagnosed. Patient also underwent recent surgery and ordered incentive spirometer for lung expansion and Acapella for mucus clearance. May consider outpatient pulmonary function test in several months after recovers from acute illness. -Continue supportive therapy including: Tylenol for fever and Mucinex for congestion. -Speech therapy evaluated patient and did not believe that he is aspirating. 2. Bilateral hydronephrosis, acuity unclear, present on admission. Resolving. -Ultrasound demonstrated bilateral hydronephrosis without mass or obstruction. -KUB did not demonstrate any nephrolithiasis or obstruction. -Patient had 400 cc urine retention and Victor catheter was inserted. Started and continued tamsulosin 0.4 mg daily. Removed Victor and voiding without difficulty. May need Urology consult outpatient. 3. Developmental delay, chronic, present on admission. Stable. -Reoriented patient as needed. 4. GERD, chronic, present on admission. Stable. -Continued home PPI. 5. Recent right inguinal hernia repair, present on admission. Stable. -Continued PT and OT. Discharged home with home health for PT, OT, and nursing. -Continued home oxycodone 5 mg every 4 hr as needed moderate to severe pain which he did not need or use and was discontinued. Received Tylenol as needed for pain which was well controlled. Status at Discharge Functional status at discharge: uses cane/walker Overall status at discharge: patient is progressing back to baseline Exam Vital Signs (past 8 hours): - 11/27/18 06:13 11/27/18 08:00 11/27/18 12:43 Temperature 97.9 F Pulse Rate 87 90 62 Respiratory Rate 22 16 22 Blood Pressure 106/68 Pulse Oximetry 98 98 99 Oxygen Delivery Method Room Air Oxygen Flow Rate 0 Narrative Exam Narrative: General: Older gentleman lying in bed and in no acute distress, well-developed, well-nourished, developmentally delayed and appropriately interactive. HEENT: Normocephalic, atraumatic. External ears without defect. Pupils equal, round, and reactive to light. Anicteric sclerae, moist conjunctivae, and no lid lag. Neck: Supple with full range of motion. No lymphadenopathy or thyromegaly. Cardiovascular: Regular rate and rhythm without murmurs, rubs, or gallops appreciated. Pulmonary: Clear to auscultation bilaterally with upper airway rhonchi occasionally. No wheeze today. Normal respiratory effort with no use of accessory muscles. Abdomen: Soft, bowel sounds present, nontender, nondistended. No hepatosplenomegaly or masses appreciated. Genitourinary: Victor catheter removed. Resolving ecchymosis around pubis and right inguinal surgical scar which is healing well without exudate. Extremities: No clubbing, cyanosis, or edema. Skin: Normal temperature, turgor, and texture; no rash, ulcers, or subcutaneous nodules appreciated. Neurological: Cranial nerves grossly intact. Psychiatric: Normal mood and affect. Developmentally delayed but alert and oriented to person and place. Objective Labs Result Diagrams: 11/27/18 07:55 11/27/18 07:55 Labs: Laboratory Results - last 24 hr 11/27/18 11/27/18 11/27/18 07:55 07:55 07:55 WBC 4.8 RBC 3.66 L Hgb 11.4 L Hct 34.0 L MCV 92.8 MCH 31.3 MCHC 33.7 RDW 12.8 Plt Count 120 L Neut % (Auto) 75.0 Lymph % (Auto) 11.7 L [place] % (Auto) 10.0 Eos % (Auto) 3.1 Baso % (Auto) 0.2 Neut # (Auto) 3600 Lymph # (Auto) 600 L [place] # (Auto) 500 Eos # (Auto) 100 Baso # (Auto) 0 Sodium 138 Potassium 3.7 Chloride 106 Carbon Dioxide 25 BUN 12 Creatinine 0.80 Estimated GFR > 60.0 BUN/Creatinine Ratio 15.0 Glucose 96 Calcium 7.7 L Magnesium 2.0 Procalcitonin 2.75 H Discharge Plan Discharge Plan Patient Disposition: Home Health Service Transfer to: Home Health, Other Discharge comment: He is being discharged home with home health for PT/OT/nursing. He is being discharged with Augmentin twice daily for 5 days to finish the antibiotic course to treat his pneumonia. He was also prescribed Mucinex 1200 mg twice daily to help break up mucus in his lungs no more than 3-5 days total. Please follow-up with his PCP, Dr. Millan, in the next 1 week regarding his hospitalization. He may have a cough for 4-6 weeks which is normal and will slowly resolve. You may repeat a chest x-ray in 4-6 weeks at his PCP's office to ensure his pneumonia has resolved. He was prescribed Colace 100 mg twice daily which is a stool softener to take for the next 1-2 weeks or as long as he is constipated. He may also take MiraLax and senna as needed for constipation. Please try to stay well hydrated when taking stool softener. He was prescribed Flomax 0.4 mg for urine retention related to prostate enlargement. He may need urology evaluation in the future. He may also have mild asthma and you may pursue a lung function test in 1-2 months after pneumonia has completely resolved. Discharge Med Rec/Prescriptions Prescriptions: New sennosides [senna] 8.6 mg Tablet 17.2 mg PO BEDTIME PRN (Reason: Constipation) Qty: 30 RF: 0 acetaminophen 325 mg Tablet 650 mg PO Q6HR PRN (Reason: As Needed For Fever/Mild Pain) Qty: 30 RF: 0 polyethylene glycol 3350 17 gram Powder In Packet 17 gm PO DAILY PRN (Reason: Constipation) Qty: 1 RF: 0 tamsulosin [Flomax] 0.4 mg Capsule 0.4 mg PO DAILY Qty: 30 RF: 0 docusate sodium 100 mg Capsule 100 mg PO BID Qty: 60 RF: 0 amoxicillin-pot clavulanate [Augmentin] 875-125 mg Tablet 1 tab PO BID Qty: 10 RF: 0 guaifenesin 600 mg Tablet Extended Release 12hr 1,200 mg PO BID Qty: 10 RF: 0 Continued omeprazole 20 mg tablet,delayed release (DR/EC) 20 mg PO DAILY RF: 0 benzonatate 200 mg capsule 200 mg PO TID PRN (Reason: cough) Qty: 30 RF: 0 oxycodone-acetaminophen [Percocet] 5-325 mg tablet 1 tab PO Q4-6H PRN (Reason: pain) Qty: 20 RF: 0 multivitamin Tablet 1 tab PO DAILY RF: 0 cranberry extract 300 mg Tablet 300 mg PO DAILY RF: 0 ondansetron 4 mg tablet,disintegrating 4 mg PO Q6H PRN (Reason: Nausea) RF: 0 cholecalciferol (vitamin D3) [Vitamin D3] 2,000 unit Capsule 2,000 unit PO DAILY RF: 0 L-Tyrosine tablet 3 tab PO DAILY RF: 0 garlic extract capsule 1 cap PO DAILY RF: 0 vitamin K2 100 meq 100 meq PO DAILY RF: 0 Discontinued ondansetron 4 mg tablet,disintegrating 4 mg PO QID PRN (Reason: nausea and vomiting) Qty: 10 RF: 0 benzonatate 200 mg capsule 200 mg PO TID RF: 0 oxycodone-acetaminophen 5-325 mg tablet 1 tab PO Q4H PRN (Reason: pain) RF: 0 omeprazole 20 mg Capsule,Delayed Release(Dr/Ec) 20 mg PO DAILY RF: 0 Follow up/Referrals: Costa Millan MD [Primary Care Provider] - Provider Discharge Instructions Diet: Diet as Tolerated Activity: Activity as tolerated with forward wheeled walker. Visit Report/Discharge Packet Instructions: DI for Pneumonia -- Adult, DI for Hernia Repair, DI for Constipation, DI for Urinary Retention in Men Discharge Data Primary Care Provider: Costa Millan Attending Provider: Mildred Holland Admit Date/Time: 11/25/18 10:32 Quality VTE Deep Vein Thrombosis/Pulmonary Embolism Present on Admission: No
--- NOTE | 2018-11-27 14:41 | PT.IPTN ---
Current Diagnoses Pneumonia, unspecified organism (11/25/18) Physical Therapy Treatment Note M2 PT-IP Current Condition Start: 11/25/18 17:25 Freq: NEEDED Status: Active Protocol: Document 11/25/18 16:30 AB (Rec: 11/25/18 17:43 AB [email or web address]) Physical Therapy Current Condition Current Condition Evaluation Date 11/25/18 Treatment Diagnosis PNA; generalized weakness Onset Date 11/25/18 Precautions Other Precautions droplet precautions M3 PT-IP Subjective Start: 11/25/18 17:25 Freq: NEEDED Status: Active Protocol: Document 11/27/18 14:40 CLB (Rec: 11/27/18 14:41 CLB [id number]) Subjective Physical Therapy Visit Type Type Patient Unavailable Notes Pt discharging at this time. M4 PT-IP Mobility and Gait Start: 11/25/18 17:25 Freq: NEEDED Status: Active Protocol: Document 11/26/18 10:25 GGD (Rec: 11/26/18 11:38 GGD [id number]) PT-Bed Mobility Assessment Supine to Sit Supine to Sit Standby Assistance Bedrails PT-Transfer Assessment Sit to and From Stand Sit to and from Stand Standby Assistance Equipment Transfer Assistive Device None Gait Belt Orthotic/Prosthetic Devices or Brace: No Transfers Transfer Destination Chair Transfer Ability Level of Assist Contact Guard Assistance 1 Person Assistance Gait Assessment Gait Gait Assistance Required: Standby Assistance Contact Guard Assist Distance (Feet) 350 Able to Maintain Weight Bearing Status Yes During Gait Assistive Devices Assistive Device None Gait Belt Orthotic/Prosthetic Devices or Brace: No Gait Deviations General Gait Pattern Antalgic Factors Limiting Gait Function Factors Limiting Gait Function Decreased Activity Tolerance Poor Balance Stair Climbing Assessment Evaluation Level of Assist On Stairs Standby Assistance Contact Guard Assistance Devices Stair Climbing Assistive Devices None Left Railing Technique/Endurance Stair Climbing Direction Ascend and Descend Stair Climbing Technique Step Over Step Step to Step Number of Steps Climbed 3 Query Text: Stair Climbing Set # Repetitions (reps) 3 Comments Stair Climbing Comments 2 reps of 3 steps with left rail with step over step to ascend and step to step to descend with SBA. 1 set of 3 steps without rails with step to step and CGA. M5 PT-IP Objective Assessments Start: 11/25/18 17:25 Freq: NEEDED Status: Active Protocol: Document 11/25/18 16:30 AB (Rec: 11/25/18 17:43 AB [email or web address]) Orientation Orientation/Cognition Level of Alertness Alert Orientation Name Place Situation Safety Awareness Understands Safety Issues Gross Range of Motion Lower Extremity ROM Assessment Within Functional Limits Strength Lower Extremity Strength Assessment Within Functional Limits Coordination Assessment Gross Coordination Gross Coordination WNL Sensation Assessment Sensation Gross Sensation WNL Muscle Tone Muscle Tone WNL Yes M6 PT-IP Treatment Start: 11/25/18 17:25 Freq: NEEDED Status: Active Protocol: Document 11/25/18 16:30 AB (Rec: 11/25/18 17:43 AB [email or web address]) Physical Therapy Treatment Education Education Provided Precautions Safety M7 PT-IP Assessment and Plan Start: 11/25/18 17:25 Freq: NEEDED Status: Active Protocol: Document 11/26/18 10:25 GGD (Rec: 11/26/18 11:38 GGD [id number]) PT Summary Assessment and Plan Summary Assessment Summary Pt improving with gait stabilty. He was safe and stable with stair mobility. He is safe to D/C home with his brother when medically stable. Frequency of Treatment Frequency Of Treatment Once a Day Treatment Plan Physical Therapy Treatment Plan Bed Mobility Training Transfer Training Gait Training Therapeutic Exercise Balance Retraining Discharge Planning Hot or Cold Pack Neuromuscular Re-ed Coordination Retraining Manual Therapy Other Recommendations and Next Treatment ambulation Focus Recommendations To Nursing Amount of Assist Needed 1 Person Assist Discharge Recommendations PT Discharge Recommendations Home with Assistance
--- NOTE | 2018-11-27 15:01 | PC.NURSE ---
Discharge: Pt feels ready to d/c home. Had final instructions from MD, PT, and nursing. Victor out and has been able to void several times. Reviewed d/c instructions with brother and patient. Rx has been elec sent. Questions answered. Cont w/poc.
[2018-11-28 06:29] LABS: Anti-Streptolysin O Antibody < 50 IU/mL (< 200)
== END 2018-11-27 15:00 | disposition home health service (06) | DRG 194 ==
LOC: ED 10:06 → AC 10:33
PROVIDERS: Emergency Medicine; Admitting Provider Internal Medicine; Emergency Provider Emergency Medicine; PCP Internal Medicine; Visit Provider Internal Medicine
DX: J18.9 Pneumonia, unspecified organism (principal); N13.30 Unspecified hydronephrosis; R62.50 Unspecified lack of expected normal physiological development in childhood; K21.9 Gastro-esophageal reflux disease without esophagitis; Z98.890 Other specified postprocedural states
CPT/HCPCS: 36415; 71045; 74018; 76700; 80048; 80053; 81001; 83605; 83690; 83735; 84145; 85025; 86060; 87040; 87400; 87449; 87633; 92610; 94640; 94667; 94760; 96361; 96365; 97116; 97161; 97165; 97530; 97535; 99284; 99285; J0696; J1644; J7613

== ENCOUNTER → 2018-11-29 08:08 | Outpatient (CLI) | payer MEDICARE, SELFPAY ==
[2018-11-29 08:08] VITALS: BMI 25.8
[2018-11-29 08:14] LABS: Bacteria Urine None Seen; WBC Urine None Seen (0-5/HPF)
[2018-11-29 09:12] LABS: Appearance Urine UA CLEAR; Bilirubin Urine UA NEGATIVE (NEGATIVE); Color Urine UA YELLOW; Glucose Urine UA NEGATIVE (Negative); Ketones Urine UA 1+ (NEGATIVE); Leukocyte Esterase Urine UA NEGATIVE (NEGATIVE); Nitrite Urine UA NEGATIVE (Negative); Occult Blood Urine UA 3+ (Negative); Protein Urine UA TRACE (Negative); Urobilinogen Urine UA 0.2 E.U./dL (0.2); pH Urine UA 6.5 (4.5-8.0)
[2018-11-29 09:17] LABS: RBC Urine 5-10/HPF (0-5/HPF); Squamous Epithelial Cell Urine 1-5 /HPF
[2018-11-29 09:18] LABS: Culture Indicated Urine Cult Not Indicated; Sperm Urine PRESENT
== END ==
PROVIDERS: PCP Internal Medicine; Visit Provider Internal Medicine
DX: R30.0 Dysuria (principal)
CPT/HCPCS: 81001

== ENCOUNTER → 2019-04-27 09:10 | Outpatient (CLI) | payer MEDICARE, SELFPAY ==
[2018-11-29 08:08] VITALS: BMI 25.8
--- NOTE | 2019-04-27 | DI.NM.S_ITS ---
PROCEDURE: NM BONE SCAN WHOLE BODY RADIOPHARMACEUTICAL: 20.90 mCi Tc-99m MDP IV. INDICATIONS: ABNORMAL CT. Previous CT demonstrated sclerotic lesions of uncertain significance involving L1, L2, L3, L4, and L5. TECHNIQUE: Delayed whole-body scintigrams were obtained approximately 3-4 hours after intravenous injection of radiotracer. Anterior and posterior views were acquired from vertex to feet. COMPARISON: [facility], CT, CT ABDOMEN PELVIS W CON, 11/14/2018, 23:36. FINDINGS: There are no suspicious lesions involving the lumbar spine. No abnormal areas of increased or pharmaceutical uptake or photopenia are identified which are suspicious for metastatic disease. There is mild lower lumbar degenerative uptake. Bilateral a.c. joint degenerative uptake. Bilateral triscaphe region degenerative uptake in the wrists. Mild bilateral knee degenerative uptake. Increased uptake in the right sternoclavicular region is likely degenerative in nature, as well. IMPRESSION: No finding suspicious for metastatic disease. Multiple areas of degenerative uptake. Dictated by: Walter Case M.D. on 04/27/2019 at 15:29 Approved by: Walter Case M.D. on 04/27/2019 at 15:40
--- NOTE | 2019-04-27 | DI.MRI.S_ITS ---
PROCEDURE: MR ABDOMEN WO/W CON INDICATIONS: ABNORMAL CT Hemangioma unspecified site TECHNIQUE: Coronal HASTE, axial 2D FLASH in- and [id number]; axial breath-hold T2 FSE. Dynamic axial VIBE during the administration of contrast; post-contrast coronal VIBE or 2D FLASH with fat saturation from the hepatic dome to the iliac crests. Optional diffusion weighted imaging and ADC may be performed. COMPARISON: [facility], CR, XR CHEST 1V, 11/25/2018, 6:47. [facility], NM, NM BONE SCAN WHOLE BODY, 04/27/2019, 12:28. [facility], CR, XR KUB, 11/25/2018, 12:57. [facility], US, US ABDOMEN COMPLETE, 11/25/2018, 8:10. [facility], CT, CT ABDOMEN PELVIS W CON, 11/14/2018, 23:36. FINDINGS: Image quality: Excellent. Lung bases: No basal pleural effusions. Heart size is normal. Solid organs: Liver is normal in size and enhancement except for presence of a mass previously identified also on CT scanning but not seen by recent ultrasound. This structure measures up to 2.9 cm in maximal dimension and shows peripheral contrast-enhancement with fill-in with an appearance suggestive of but not diagnostic for presence of hemangioma. Gallbladder appears normal with. Biliary system is non dilated. Pancreas is normal in morphology. Spleen is normal in size and enhancement. No adrenal nodules. Both kidneys demonstrate normal size and enhancement, without hydronephrosis. Nodes and vessels: No retroperitoneal or mesenteric adenopathy by size criteria. Aorta and inferior vena cava are normal in size. Bowel and peritoneum: Unenhanced bowel loops are normal in caliber. No free fluid. Bones and soft tissues: No ventral hernias. Bone marrow is normal in overall signal. IMPRESSION: 2.9 cm subcapsular right posterior hepatic segment mass lesion within the liver has imaging characteristics suggestive of but not definitively diagnostic for presence of hepatic hemangioma. The absence of discontinuous peripheral nodular enhancement renders the CT and MR appearance indeterminate. Nuclear medicine tagged red blood cell scan is recommended with SPECT imaging targeted to this abnormality. Again noted is hydronephrosis bilaterally, etiology uncertain. This was also identified during prior CT and ultrasound scanning in November of this year. Dictated by: Cristian Bertrand M.D. on 04/28/2019 at 11:10 Approved by: Cristian Bertrand M.D. on 04/28/2019 at 11:23
== END ==
PROVIDERS: PCP Internal Medicine; Visit Provider Internal Medicine
DX: R93.7 Abnormal findings on diagnostic imaging of other parts of musculoskeletal system (principal); D18.00 Hemangioma unspecified site
CPT/HCPCS: 74183; 78306; A9503; A9579

== ENCOUNTER → 2019-06-05 10:31 | Outpatient (CLI) | payer MEDICARE, SELFPAY ==
[2018-11-29 08:08] VITALS: BMI 25.8
--- NOTE | 2019-06-05 | DI.NM.S_ITS ---
PROCEDURE: NM HEMANGIOMA SCAN W SPECT RADOPHARMACEUTICAL: 0.3 0.6 mCi Tc-99m modified in vivo labeled red cells IV. INDICATIONS: Hemangioma of other sites TECHNIQUE: Flow, early and delayed planar images of the abdomen were obtained after injection of Tc-99m red cells. Additional SPECT images of the upper abdomen were acquired. COMPARISON: [facility], CT, CT ABDOMEN PELVIS W CON, 11/14/2018, 23:36. [facility], MR, MR ABDOMEN WO/W CON, 04/27/2019, 9:56. FINDINGS: Multiplanar orthogonal imaging utilizing SPECT technique was obtained optimized for hemangioma detection. The MR scanning had identified a lesion within the inferior right lateral hepatic lobe which was suggestive of (but not definitively diagnostic of) a benign hemangioma as the underlying cause. The current study is definitive-the structure of prior MR concern does in fact represent a benign hemangioma. IMPRESSION: Benign hemangioma produces the previously identified right inferior lateral hepatic lobe lesion initially identified by CT scanning 11/14/18 and also subsequently reviewed by MR scanning. No followup necessary. Dictated by: Cristian Bertrand M.D. on 06/05/2019 at 16:07 Approved by: Cristian Bertrand M.D. on 06/05/2019 at 16:12
== END ==
PROVIDERS: PCP Internal Medicine; Visit Provider Internal Medicine
DX: D18.09 Hemangioma of other sites (principal)
CPT/HCPCS: 78205; A9512

== ENCOUNTER 2019-06-26 19:31 | Emergency (ER) | payer MEDICARE, SELFPAY ==
[2018-11-29 08:08] VITALS: BMI 25.8
[2019-06-26 19:41] VITALS: BP 140/70; PULSE 81; RESP 18; TEMP 37.2; O2SAT 94
--- NOTE | 2019-06-26 19:47 | ED.SOB ---
HPI - SOB/Dyspnea General Chief Complaint: Shortness of Breath/Dyspnea Stated Complaint: COUGH FEVER Time Seen by Provider: 06/26/19 19:40 Source: patient Mode of arrival: Ambulatory History of Present Illness HPI Narrative: PATIENT IS A 68-YEAR-OLD MALE with history of developmental delay WHO PRESENTS WITH COUGH ONGOING FOR ABOUT A WEEK. TODAY HE DEVELOPED A FEVER OF 103 AT HOME BUT IS AFEBRILE HERE IN DID NOT take any Tylenol or ibuprofen. He denies any shortness of breath with exertion chest pain or orthopnea. He has a dry hacky nonproductive cough all along with body aches. MD Complaint: cough Onset (ago): week(s) (1) Severity: mild Treatment prior to arrival: none Related Data Home Medications Medication Instructions Recorded Confirmed omeprazole 20 mg tablet,delayed 20 mg PO DAILY 09/23/18 11/26/18 release L-Tyrosine 3 tab PO DAILY 11/25/18 11/25/18 cholecalciferol (vitamin D3) 2,000 unit PO DAILY 11/25/18 12/06/18 [Vitamin D3] cranberry extract 300 mg PO DAILY 11/25/18 11/25/18 garlic extract 1 cap PO DAILY 11/25/18 11/25/18 multivitamin 1 tab PO DAILY 11/25/18 11/25/18 ondansetron 4 mg PO Q6H PRN 11/25/18 11/25/18 vitamin K2 100 meq PO DAILY 11/25/18 11/25/18 Previous Rx's Medication Instructions Recorded oxycodone-acetaminophen [Percocet] 1 tab PO Q4-6H PRN #20 tab 11/23/18 benzonatate 200 mg capsule 200 mg PO TID PRN #30 cap 11/24/18 acetaminophen 650 mg PO Q6HR PRN #30 tab 11/27/18 albuterol sulfate 1 puff INHALATION Q6H PRN #18 gram 11/27/18 amoxicillin-pot clavulanate 1 tab PO BID #10 tab 11/27/18 [Augmentin] docusate sodium 100 mg PO BID #60 cap 11/27/18 guaifenesin 1,200 mg PO BID #10 tab 11/27/18 polyethylene glycol 3350 17 gm PO DAILY PRN #1 pkg 11/27/18 sennosides [senna] 17.2 mg PO BEDTIME PRN #30 tab 11/27/18 tamsulosin [Flomax] 0.4 mg PO DAILY #30 cap 11/27/18 levofloxacin [Levaquin] 750 mg PO DAILY #5 tab 06/26/19 Allergies Allergy/AdvReac Type Severity Reaction Status Date / Time No Known Drug Allergies Allergy Verified 06/26/19 19:49 Review of Systems Review of Systems ROS Unobtainable: All systems reviewed & are unremarkable except as noted in HPI and below Constitutional Constitutional: Denies chills, Denies fever(s), Denies lethargy and Denies weakness Eyes Eyes: Denies change in vision, Denies eye discharge, Denies irritation and Denies loss of vision ENT Ears, Nose, Mouth, and Throat: Denies change in voice, Denies neck pain and Denies sore throat Cardiovascular Cardiovascular: Denies chest pain, Denies irregular heart rhythm, Denies lightheadedness, Denies palpitations and Denies orthopnea Respiratory Respiratory: Reports as per HPI and Reports cough Gastrointestinal Gastrointestinal: Denies abdominal pain, Denies change in bowel habits, Denies diarrhea, Denies nausea and Denies vomiting Genitourinary Genitourinary: Denies hematuria, Denies flank pain, Denies urinary incontinence and Denies urinary urgency Musculoskeletal Musculoskeletal: Denies neck pain Neurologic Neurologic: Denies loss of vision and Denies weakness Endocrine Endocrine: Denies palpitations Patient History Medical History Medical History Asthma (Acute) Developmental delay (Acute) Developmental delay, mild (Acute) GERD (gastroesophageal reflux disease) (Acute) GERD (gastroesophageal reflux disease) (Acute) Upper respiratory infection (Acute ~11/2018) Family History Family History Mother Dementia Father Pneumonia Social History Social History details: Lives with family household members: family Smoking Status: Never smoker alcohol intake: never Substance Use Type: does not use Exam Initial Vital Signs Initial Vital Signs: Vital Signs Temperature 99.0 F 06/26/19 19:41 Pulse Rate 81 06/26/19 19:41 Respiratory Rate 18 06/26/19 19:41 Blood Pressure 140/70 06/26/19 19:41 Pulse Oximetry 94 06/26/19 19:41 GENERAL: Alert male no acute distress, developmental delay features HEENT: Head atraumatic,EOMI, pupils reactive, face symmetric, moist mucous membranes CARDIOVASCULAR: Regular rate and rhythm without murmurs, rubs or gallops. RESPIRATORY: Breath sounds equal bilaterally, no wheezes rales or rhonchi. Coughing episodes with the breathing ABDOMEN: Soft, nontender. Normoactive bowel sounds all 4 quadrants. No guarding or rebound. EXTREMITIES: Normal range of motion, no clubbing or edema. Neurovascularly intact NEUROLOGICAL: Alert and oriented x4.Normal gait and speech. Cranial nerves II through XII grossly intact. SKIN: Warm, dry, no laceration, no petechiae, no rashes or lesions. Scores CURB-65 Confusion: No BUN >19mg/dL (>7mmol/L): No Respiratory rate greater or equal to 30: No SBP <90mmHg or DBP less or equal to 60mmHg: No Age 65 or Older: Yes CURB-65 Total: 1 Score 0-1 Outpatient care, Score 2 Inpt vs. Obs, Score 3 or over Inpt admit with ICU for score of 4-5 Course Orders Ordered: ED Orders 06/26/19 19:32 FLU A and B [Influenza A and B by PCR Rapid] Stat 06/26/19 19:48 Consult to Respiratory Therapy Evaluate & Treat 06/26/19 19:49 XR chest 2V Stat 06/26/19 20:00 Complete Blood Count AUTO DIFF Stat Comprehensive Metabolic Panel Stat Lactate (Lactic Acid) Stat Procalcitonin Stat 06/26/19 20:17 Blood Culture Stat Discontinued Medications Albuterol (Ventolin Hfa Prepack) 1 box MISC SEEINSTR ONE Stop: 06/26/19 20:58 Last Admin: 06/26/19 21:05 Dose: 1 box Documented by: NAINA Albuterol/Ipratropium (Duoneb) 3 ml INH NOW ONE Stop: 06/26/19 19:49 Last Admin: 06/26/19 20:07 Dose: 3 ml Documented by: SUSANA Albuterol/Ipratropium (Duoneb) 3 ml INH NOW ONE Stop: 06/26/19 20:18 Last Admin: 06/26/19 20:20 Dose: 3 ml Documented by: SUSANA Albuterol/Ipratropium (Duoneb) 3 ml INH NOW ONE Stop: 06/26/19 20:23 Last Admin: 06/26/19 20:23 Dose: 3 ml Documented by: SUSANA Sodium Chloride (Normal Saline 0.9%) 1,000 mls @ 1,000 mls/hr IV BOLUS ONE Stop: 06/26/19 20:47 Last Infusion: 06/26/19 21:13 Dose: 0 mls/hr Documented by: Admin: 06/26/19 20:16 Dose: 1,000 mls/hr Documented by: GUILHERME Levofloxacin (Levaquin) 750 mg PO NOW ONE Stop: 06/26/19 20:58 Last Admin: 06/26/19 21:05 Dose: 750 mg Documented by: NAINA Vital Signs Vital signs: Vital Signs - 8 hr 06/26/19 19:41 06/26/19 20:10 06/26/19 20:20 Temperature 99.0 F Pulse Rate 81 Respiratory Rate 18 Blood Pressure 140/70 Blood Pressure [Right Arm] Pulse Oximetry 94 95 97 06/26/19 21:00 06/26/19 21:14 06/26/19 21:19 Temperature 99.4 F 99.1 F Pulse Rate 82 Respiratory Rate 20 Blood Pressure Blood Pressure [Right Arm] 119/61 Pulse Oximetry 100 MDM - SOB/Dyspnea Lab Data Attestation: I reviewed the patient's lab results. Result diagrams: 06/26/19 20:00 06/26/19 20:00 Labs: Lab Results 06/26/19 06/26/19 06/26/19 Range/Units 19:32 20:00 20:00 WBC 12.9 H (4.5-11.0) X10^3/uL RBC 4.81 (4.5-5.9) X10^6/uL Hgb 15.0 (13.5-17.5) g/dL Hct 44.6 (41-53) % MCV 92.6 (80-100) fL MCH 31.1 (26-34) PG MCHC 33.6 (30-36) % RDW 12.8 (11.6-14.8) % Plt Count 120 L (150-400) X10^3/uL Neut % (Auto) 90.3 H (50-75) % Lymph % (Auto) 3.0 L (25-40) % Lewis % (Auto) 6.2 (3-14) % Eos % (Auto) 0.2 L (2-4) % Baso % (Auto) 0.3 (0-2) % Neut # (Auto) 41163 H (4876-6453) /uL Lymph # (Auto) 400 L (4764-7887) /uL Lewis # (Auto) 800 (0-900) /uL Eos # (Auto) 0 (0-450) /uL Baso # (Auto) 0 (0-100) /uL Sodium (137-145) mmol/L Potassium (3.4-5.1) mmol/L Chloride (98-107) mmol/L Carbon Dioxide (22-32) mmol/L BUN (9-20) mg/dL Creatinine (0.66-1.25) mg/dL Estimated GFR (>60) mL/min BUN/Creatinine Ratio (6-22) Glucose (80-110) mg/dL Lactate (0.7-2.1) mmol/L Calcium (8.4-10.2) mg/dL Total Bilirubin (0.2-1.3) mg/dL AST (17-59) IU/L ALT (21-72) IU/L Alkaline Phosphatase (38-126) U/L Total Protein (6.3-8.2) g/dL Albumin (3.5-5.0) g/dL Globulin (1.7-4.1) g/dL Albumin/Globulin Ratio (1.0-2.8) Procalcitonin 0.20 (<0.5) ng/mL Influenza A & B (PCR) Negative (Negative) 06/26/19 06/26/19 Range/Units 20:00 20:00 WBC (4.5-11.0) X10^3/uL RBC (4.5-5.9) X10^6/uL Hgb (13.5-17.5) g/dL Hct (41-53) % MCV (80-100) fL MCH (26-34) PG MCHC (30-36) % RDW (11.6-14.8) % Plt Count (150-400) X10^3/uL Neut % (Auto) (50-75) % Lymph % (Auto) (25-40) % Lewis % (Auto) (3-14) % Eos % (Auto) (2-4) % Baso % (Auto) (0-2) % Neut # (Auto) (7594-4170) /uL Lymph # (Auto) (4887-4340) /uL Lewis # (Auto) (0-900) /uL Eos # (Auto) (0-450) /uL Baso # (Auto) (0-100) /uL Sodium 138 (137-145) mmol/L Potassium 3.9 (3.4-5.1) mmol/L Chloride 104 (98-107) mmol/L Carbon Dioxide 25 (22-32) mmol/L BUN 11 (9-20) mg/dL Creatinine 0.90 (0.66-1.25) mg/dL Estimated GFR > 60.0 (>60) mL/min BUN/Creatinine Ratio 12.2 (6-22) Glucose 97 (80-110) mg/dL Lactate 0.7 (0.7-2.1) mmol/L Calcium 8.6 (8.4-10.2) mg/dL Total Bilirubin 1.3 (0.2-1.3) mg/dL AST 24 (17-59) IU/L ALT 25 (21-72) IU/L Alkaline Phosphatase 88 (38-126) U/L Total Protein 6.6 (6.3-8.2) g/dL Albumin 3.8 (3.5-5.0) g/dL Globulin 2.8 (1.7-4.1) g/dL Albumin/Globulin Ratio 1.4 (1.0-2.8) Procalcitonin (<0.5) ng/mL Influenza A & B (PCR) (Negative) Imaging Data Chest x-ray: Radiologist's impression: PROCEDURE: XR CHEST 2V INDICATIONS: COUGH TECHNIQUE: 2 views of the chest were acquired. COMPARISON: [facility], , XR CHEST 1V, 11/25/2018, 6:47. FINDINGS: Surgical changes and devices: None. Lungs and pleura: Moderate air space opacity within the right upper and right lower lung medially. No pleural effusions or pneumothorax. Mediastinum: Mediastinal contours are normal. Heart size is normal. Bones and chest wall: No suspicious bony abnormalities. Soft tissues appear unremarkable. IMPRESSION: Right lung pneumonia. Follow up plain films of the chest are recommended to ensure resolution, and to exclude underlying or central malignancy. Dictated by: Ernestine Julian M.D. on 06/26/2019 at 20:18 MDM Narrative Medical decision making narrative: Patient started breathing much better after bronchodilators. His overall feeling better x-ray does show right-sided pneumonia. He does have some mild leukocytosis curves 65 is low patient can easily be treated as an outpatient at this time. He is taught by respiratory head use inhaler and spacer. Given his 1st dose of antibiotic in the ED Discharge Plan Departure Patient Disposition: Home Clinical Impression: Pneumonia Qualifiers: Pneumonia type: due to unspecified organism Laterality: right Lung location: unspecified part of lung Qualified Code(s): J18.9 - Pneumonia, unspecified organism Discharge Date/Time: 06/26/19 21:19 Instructions: DI for Pneumonia -- Adult Activity Restrictions/Additional Instructions: *You have been diagnosed with right lung pneumonia *What to do: Increase fluid intake *Continue to take medications as directed--> SENT TO [facility] Levaquin 750 mg once daily x5 days Albuterol inhaler 1-2 puffs with spacer every 4 hours if needed for coughing spells or shortness of breath *Follow up with your primary care provider in 2-3 days *Return to ER if you should have increasing shortness of breath or any new, worsening or concerning symptoms Prescriptions: New levofloxacin [Levaquin] 750 mg tablet 750 mg PO DAILY Qty: 5 RF: 0 No Action omeprazole 20 mg tablet,delayed release (DR/EC) 20 mg PO DAILY RF: 0 benzonatate 200 mg capsule 200 mg PO TID PRN (Reason: cough) Qty: 30 RF: 0 oxycodone-acetaminophen [Percocet] 5-325 mg tablet 1 tab PO Q4-6H PRN (Reason: pain) Qty: 20 RF: 0 multivitamin Tablet 1 tab PO DAILY RF: 0 cranberry extract 300 mg Tablet 300 mg PO DAILY RF: 0 ondansetron 4 mg tablet,disintegrating 4 mg PO Q6H PRN (Reason: Nausea) RF: 0 cholecalciferol (vitamin D3) [Vitamin D3] 2,000 unit Capsule 2,000 unit PO DAILY RF: 0 L-Tyrosine tablet 3 tab PO DAILY RF: 0 garlic extract capsule 1 cap PO DAILY RF: 0 vitamin K2 100 meq 100 meq PO DAILY RF: 0 sennosides [senna] 8.6 mg Tablet 17.2 mg PO BEDTIME PRN (Reason: Constipation) Qty: 30 RF: 0 acetaminophen 325 mg Tablet 650 mg PO Q6HR PRN (Reason: As Needed For Fever/Mild Pain) Qty: 30 RF: 0 polyethylene glycol 3350 17 gram Powder In Packet 17 gm PO DAILY PRN (Reason: Constipation) Qty: 1 RF: 0 tamsulosin [Flomax] 0.4 mg Capsule 0.4 mg PO DAILY Qty: 30 RF: 0 docusate sodium 100 mg Capsule 100 mg PO BID Qty: 60 RF: 0 amoxicillin-pot clavulanate [Augmentin] 875-125 mg Tablet 1 tab PO BID Qty: 10 RF: 0 guaifenesin 600 mg Tablet Extended Release 12hr 1,200 mg PO BID Qty: 10 RF: 0 albuterol sulfate 90 mcg/actuation HFA aerosol inhaler 1 puff INHALATION Q6H PRN (Reason: shortness of breath or wheezing) Qty: 18 RF: 0 Referrals: Costa Millan MD [Primary Care Provider] -
[2019-06-26 20:03] LABS: Influenza A and B by PCR Rapid Negative (Negative)
[2019-06-26] MEDS: ALBUTEROL/IPRATROPIUM 3 ML AMPUL INH ×3 (20:07→20:23)
[2019-06-26 20:08] LABS: Add Manual Diff / Slide Review NO; Basophils Absolute Auto 0 /uL (0-100); Basophils Percent Auto 0.3 % (0-2); Eosinophils Absolute Auto 0 /uL (0-450); Eosinophils Percent Auto 0.2 % (2-4); Hematocrit 44.6 % (41-53); Lymphocytes Absolute Auto 400 /uL (1100-4500); Mean Corpuscular HGB Conc 33.6 % (30-36); Mean Corpuscular Hemoglobin 31.1 PG (26-34); Mean Corpuscular Volume 92.6 fL (80-100); Monocytes Absolute Auto 800 /uL (0-900); Monocytes Percent Auto 6.2 % (3-14); Neutrophils Absolute Auto 11700 /uL (1500-7000); Neutrophils Percent Auto 90.3 % (50-75); Platelet Count 120 X10^3/uL (150-400); Red Blood Cell Count 4.81 X10^6/uL (4.5-5.9); Red Cell Distribution Width 12.8 % (11.6-14.8); White Blood Cell Count 12.9 X10^3/uL (4.5-11.0)
[2019-06-26 20:10] VITALS: O2SAT 95
[2019-06-26] MEDS: SODIUM CHLORIDE 0.9% 1,000 ML 1000 ML IV (20:16)
[2019-06-26 20:20] VITALS: O2SAT 97
[2019-06-26 20:24] LABS: Lactate (Lactic Acid) 0.7 mmol/L (0.7-2.1)
[2019-06-26 20:27] LABS: Alanine Aminotransferase 25 IU/L (21-72); Albumin 3.8 g/dL (3.5-5.0); Albumin Globulin Ratio 1.4 (1.0-2.8); Alkaline Phosphatase 88 U/L (38-126); Aspartate Aminotransferase 24 IU/L (17-59); BUN Creatinine Ratio 12.2 (6-22); Bilirubin Total 1.3 mg/dL (0.2-1.3); Blood Urea Nitrogen 11 mg/dL (9-20); Calcium 8.6 mg/dL (8.4-10.2); Carbon Dioxide 25 mmol/L (22-32); Chloride 104 mmol/L (98-107); Estimated Glomerular Filt Rate > 60.0 mL/min (>60); Globulin 2.8 g/dL (1.7-4.1); Glucose 97 mg/dL (80-110); HEMOLYSIS < 15 (0-50); Potassium 3.9 mmol/L (3.4-5.1); Sodium 138 mmol/L (137-145); Total Protein 6.6 g/dL (6.3-8.2)
[2019-06-26 21:00] VITALS: BP 119/61; PULSE 82; RESP 20; O2SAT 100
[2019-06-26] MEDS: levoFLOXacin 250 MG TABLET 750 MG PO (21:05)
[2019-06-26] MEDS: ALBUTEROL HFA PREPACK 1 BOX MISC (21:05)
[2019-06-26 21:14] VITALS: TEMP 37.4
[2019-06-26 21:19] VITALS: TEMP 37.3
== END 2019-06-26 21:19 | disposition home or self-care (01) ==
PROVIDERS: Emergency Provider Emergency Medicine; PCP Internal Medicine
DX: J18.9 Pneumonia, unspecified organism (principal)
CPT/HCPCS: 36415; 71046; 80053; 83605; 84145; 85025; 87040; 87400; 87502; 94640; 96360; 99283; 99284

== ENCOUNTER → 2019-08-24 12:51 | Outpatient (CLI) | payer MEDICARE, SELFPAY ==
[2018-11-29 08:08] VITALS: BMI 25.8
--- NOTE | 2019-09-01 08:52 | PM.PFT.1 ---
Pulmonary Function Test Referral & Results Date Patient Seen: 08/24/19 Requesting provider: Costa Millan Results: The spirometry demonstrates an FVC of 2.18 L which is 52% of predicted. The FEV1 was measured at 1.63 L which is 53% of predicted. The FEV1/FVC ratio was 74 which is 100% of predicted. Following the administration of bronchodilator there was 15% improvement in FEV1 and a 100% improvement in FEF 25-75%. Lung volumes show an SVC of 2.45 L which is 56% of predicted. The diffusing capacity was measured at 23.52 which is 79% of predicted. The maximum voluntary ventilation was reduced Interpretation: This study demonstrates moderate obstructive lung disease based on reduction FEV1 although there is evidence of notable benefit following bronchodilator particularly small airway flow as above based on improvement in FEF 25-75% There is also moderate restrictive lung disease present based on reduction SVC Clinical correlation suggested
== END ==
PROVIDERS: PCP Internal Medicine; Visit Provider Internal Medicine
DX: J45.901 Unspecified asthma with (acute) exacerbation (principal); Z87.01 Personal history of pneumonia (recurrent)
CPT/HCPCS: 94060; 94726; 94729

== ENCOUNTER → 2020-06-05 09:46 | Outpatient (CLI) | payer MEDICARE, SELFPAY ==
[2018-11-29 08:08] VITALS: BMI 25.8
[2020-06-05 10:49] LABS: Add Manual Diff / Slide Review NO; Basophils Absolute Auto 0 /uL (0-100); Basophils Percent Auto 0.4 % (0-2); Eosinophils Absolute Auto 100 /uL (0-450); Eosinophils Percent Auto 1.4 % (2-4); Hemoglobin 15.7 g/dL (13.5-17.5); Lymphocytes Absolute Auto 800 /uL (1100-4500); Lymphocytes Percent Auto 16.2 % (25-40); Mean Corpuscular HGB Conc 33.5 % (30-36); Mean Corpuscular Hemoglobin 31.2 PG (26-34); Mean Corpuscular Volume 93.2 fL (80-100); Monocytes Absolute Auto 400 /uL (0-900); Monocytes Percent Auto 8.6 % (3-14); Neutrophils Absolute Auto 3700 /uL (1500-7000); Neutrophils Percent Auto 73.4 % (50-75); Platelet Count 105 X10^3/uL (150-400); Red Blood Cell Count 5.04 X10^6/uL (4.5-5.9); Red Cell Distribution Width 12.7 % (11.6-14.8)
[2020-06-05 11:21] LABS: BUN Creatinine Ratio 14.4 (6-22); Blood Urea Nitrogen 13 mg/dL (9-20); Calcium 8.7 mg/dL (8.4-10.2); Carbon Dioxide 32 mmol/L (22-32); Chloride 104 mmol/L (98-107); Cholesterol 126 mg/dL (140-199); Estimated Glomerular Filt Rate > 60.0 mL/min (>60); Glucose 80 mg/dL (80-110); HDL Cholesterol 31 mg/dL (40-60); HEMOLYSIS < 15 (0-50); LDL Cholesterol Calculated 71 mg/dL (<100); Potassium 5.2 mmol/L (3.4-5.1); Sodium 141 mmol/L (137-145); Triglycerides 121 mg/dL (35-150)
== END ==
PROVIDERS: PCP Family Medicine; Referring Provider Family Medicine; Visit Provider Family Medicine
DX: Z13.220 Encounter for screening for lipoid disorders (principal)
CPT/HCPCS: 36415; 80048; 80061; 85025

== ENCOUNTER → 2020-12-17 12:43 | Outpatient (CLI) | payer MEDICARE, SELFPAY ==
[2018-11-29 08:08] VITALS: BMI 25.8
--- NOTE | 2020-12-17 12:47 | DI.RAD.S_ITS ---
PROCEDURE: XR CHEST 2V INDICATIONS: [id number], rhonchi LLL, r/o pneumonia TECHNIQUE: 2 views of the chest were acquired. COMPARISON: [facility], , XR CHEST 2V, 06/26/2019, 20:00. FINDINGS: Surgical changes and devices: None. Lungs and pleura: Lungs are clear. No pleural effusions or pneumothorax. Mediastinum: Mediastinal contours are normal. Heart size is normal. Bones and chest wall: No suspicious bony abnormalities. There is S-shaped scoliosis of the thoracic spine. Soft tissues appear unremarkable. IMPRESSION: No acute cardiopulmonary abnormality Dictated by: Julian Richmond M.D. on 12/17/2020 at 13:07 Approved by: Julian Richmond M.D. on 12/17/2020 at 13:07
== END ==
PROVIDERS: PCP Family Medicine; Referring Provider Physician Assistant; Visit Provider Physician Assistant
DX: R05 Cough (principal)
CPT/HCPCS: 71046

== ENCOUNTER 2021-04-29 11:13 | Emergency (ER) | payer MEDICARE, SELFPAY ==
[2018-11-29 08:08] VITALS: BMI 25.8
[2021-04-29 11:20] VITALS: PULSE 39; RESP 17; O2SAT 99
[2021-04-29 11:24] VITALS: PULSE 39; RESP 17; O2SAT 99
--- NOTE | 2021-04-29 11:24 | ED_ITS ---
HPI - General Adult General Chief complaint: Arrhythmia/Palpitations Stated complaint: heart rate of 35, referred by prints and drawings curator Time Seen by Provider: 04/29/21 11:17 History of Present Illness HPI narrative: Patient is a 70-year-old male. States that he is not on any prescription medications. Was at the prints and drawings curator office this morning for evaluation of issues that he has been having with his feet it was noticed that he was bradycardic. He has never been told that he has been bradycardic in the past. He has no chest pain. No shortness of breath. No lightheadedness. No headache. Has been ambulating without issues. Was told to come to the emergency department by his prints and drawings curator for further evaluation. Related Data Home Medications Medication Instructions Recorded Confirmed L-Tyrosine 3 tab PO DAILY 11/25/18 03/04/21 cholecalciferol (vitamin D3) 50 2,000 unit PO DAILY 11/25/18 03/04/21 mcg (2,000 unit) capsule (Vitamin D3) cranberry extract 300 mg tablet 300 mg PO DAILY 11/25/18 03/04/21 garlic extract 1 cap PO DAILY 11/25/18 03/04/21 multivitamin 1 tab PO DAILY 11/25/18 03/04/21 vitamin K2 100 meq PO DAILY 11/25/18 03/04/21 N-acetyl cystine PO 08/15/20 03/04/21 zinc gluconate-vitamin C [zinc] PO 08/15/20 03/04/21 Allergies Allergy/AdvReac Type Severity Reaction Status Date / Time No Known Drug Allergies Allergy Verified 03/04/21 11:12 Review of Systems Constitutional Comments: No fevers or headache Eyes Comments: No vision changes ENT Ears, Nose, Mouth, and Throat: Denies vertigo and Denies dizziness Cardiovascular Comments: No chest pain Respiratory Comments: No shortness of breath Gastrointestinal Gastrointestinal: Reports system reviewed and no additional complaints, except as documented Musculoskeletal Musculoskeletal: Reports system reviewed and no additional complaints, except as documented Integumentary/Breasts Skin/Breast: Reports system reviewed and no additional complaints, except as documented Neurologic Neurologic: Reports system reviewed and no additional complaints, except as documented, Denies vertigo and Denies dizziness Hematologic/Lymphatic On Anticoagulants: No Patient History Medical History Asthma Benign prostatic hyperplasia (~2009) Cough Developmental delay Developmental delay, mild Encounter for preventive health examination Gastric bleed (~1988) GERD with esophagitis Hearing loss (~2014) History of urinary incontinence (~2009) Low HDL (under 40) Pain of left great toe Physical exam, annual Screening for hyperlipidemia Upper respiratory infection (~11/2018) Ventral hernia without obstruction or gangrene Wears glasses Surgical History Anesthesia History of hernia repair (~2018) History of tonsillectomy Hx of cholecystectomy (~2003) Family History Mother Dementia Hyperlipidemia Hypertension Father Pneumonia Brother Diabetes mellitus Sister GERD (gastroesophageal reflux disease) Social History details: Lives with family household members: family Smoking Status: Never smoker alcohol intake: never Smoking Status: Never smoker Substance Use Type: does not use Exam Initial Vital Signs Initial Vital Signs: Vital Signs Pulse Rate 39 L 04/29/21 11:20 Respiratory Rate 17 04/29/21 11:20 Pulse Oximetry 99 04/29/21 11:20 Const General: cooperative, comfortable, well developed and well groomed HENMT Head: normal to inspection and normocephalic Resp Effort & Inspection: normal respiratory effort Auscultation: clear to auscultation bilaterally Cardio Rate: bradycardic Rhythm: regular rhythm GI Inspection: normal to inspection Skin General: no rashes or lesions noted Neuro General: patient alert, patient awake and moves all extremities Extrem General: normal to inspection and capillary refill normal Psych Appearance: grossly normal and well kempt Course Orders Ordered: ED Orders 04/29/21 11:18 EKG-12 Lead Stat 04/29/21 11:30 Complete Blood Count AUTO DIFF Stat Comprehensive Metabolic Panel Stat Lipase Stat Magnesium Stat Vital Signs Vital signs: Vital Signs - 8 hr 04/29/21 11:20 04/29/21 11:24 04/29/21 11:30 Temperature 98.1 F Pulse Rate 39 L 39 L 39 L Respiratory Rate Blood Pressure 160/72 H Pulse Oximetry 99 99 98 04/29/21 11:31 04/29/21 12:00 04/29/21 12:01 Temperature Pulse Rate 38 L 38 L 38 L Respiratory Rate 13 15 13 Blood Pressure 131/63 Pulse Oximetry 98 97 97 Medical Decision Making Lab Data Lab results reviewed: Yes I reviewed the patient's lab results. Result diagrams: 04/29/21 11:30 04/29/21 11:30 Labs: Lab Results 04/29/21 04/29/21 Range/Units 11:30 11:30 WBC 5.0 (4.5-11.0) X10^3/uL RBC 4.81 (4.5-5.9) X10^6/uL Hgb 15.0 (13.5-17.5) g/dL Hct 45.2 (41-53) % MCV 94.1 (80-100) fL MCH 31.1 (26-34) PG MCHC 33.1 (30-36) % RDW 12.5 (11.6-14.8) % Plt Count 106 L (150-400) X10^3/uL Neut % (Auto) 71.8 (50-75) % Lymph % (Auto) 19.1 L (25-40) % [place] % (Auto) 6.9 (3-14) % Eos % (Auto) 1.8 L (2-4) % Baso % (Auto) 0.4 (0-2) % Neut # (Auto) 3600 (3031-9724) /uL Lymph # (Auto) 1000 L (6447-8030) /uL [place] # (Auto) 300 (0-900) /uL Eos # (Auto) 100 (0-450) /uL Baso # (Auto) 0 (0-100) /uL Sodium 139 (137-145) mmol/L Potassium 4.4 (3.4-5.1) mmol/L Chloride 105 (98-107) mmol/L Carbon Dioxide 28 (22-32) mmol/L BUN 12 (9-20) mg/dL Creatinine 0.90 (0.66-1.25) mg/dL Estimated GFR > 60.0 (>60) mL/min BUN/Creatinine Ratio 13.3 (6-22) Glucose 122 H (80-110) mg/dL Calcium 8.8 (8.4-10.2) mg/dL Magnesium 1.8 (1.6-2.3) mg/dL Total Bilirubin 0.8 (0.2-1.3) mg/dL AST 33 (17-59) IU/L ALT 30 (<50) IU/L Alkaline Phosphatase 114 (38-126) U/L Total Protein 6.6 (6.3-8.2) g/dL Albumin 3.9 (3.5-5.0) g/dL Globulin 2.7 (1.7-4.1) g/dL Albumin/Globulin Ratio 1.4 (1.0-2.8) Lipase 62 (23-300) U/L ECG Data Attestation: I personally reviewed and interpreted this ECG as follows: Interpretation: Sinus rhythm Bradycardic with a ventricular rate of 39 Incomplete right bundle-branch block Normal QRS Normal QTC Left axis deviation LVH No ST T wave changes MDM Narrative Medical decision making narrative: Patient is bradycardic however he is asymptomatic. Patient is not hypotensive. He is not on any medications that would cause his heart rate to be low. No further workup needed the emergency department. Will have him contact his primary doctor to discuss referral to see Cardiology. He was given return precautions. He expressed understanding and agreement. His brother was at bedside and also expressed understanding and agreement. Discharge Plan Departure Patient Disposition: Home Clinical Impression: Bradycardia Instructions: DI for Bradycardia Activity Restrictions/Additional Instructions: You do need to contact your primary doctor for a follow-up to discuss the indications for referral to see Cardiology. Please return to the emergency de partment for any new symptoms to include chest pain, lightheadedness, shortness of breath, passing out or any other new or worsening symptoms. Prescriptions: No Action zinc gluconate-vitamin C PO RF: 0 N-acetyl cystine 600 mg PO RF: 0 multivitamin Tablet 1 tab PO DAILY RF: 0 cranberry extract 300 mg Tablet 300 mg PO DAILY RF: 0 cholecalciferol (vitamin D3) [Vitamin D3] 2,000 unit Capsule 2,000 unit PO DAILY RF: 0 L-Tyrosine tablet 3 tab PO DAILY RF: 0 garlic extract capsule 1 cap PO DAILY RF: 0 vitamin K2 100 meq 100 meq PO DAILY RF: 0 Referrals: Murtaza Onofre DO [Primary Care Provider] -
[2021-04-29 11:30] VITALS: BP 160/72; PULSE 38; PULSE 39; RESP 16; RESP 18; TEMP 36.7; O2SAT 98; O2SAT 99
[2021-04-29 11:31] VITALS: PULSE 38; RESP 13; O2SAT 98
[2021-04-29 11:42] LABS: Add Manual Diff / Slide Review NO; Basophils Absolute Auto 0 /uL (0-100); Basophils Percent Auto 0.4 % (0-2); Eosinophils Absolute Auto 100 /uL (0-450); Eosinophils Percent Auto 1.8 % (2-4); Hematocrit 45.2 % (41-53); Lymphocytes Absolute Auto 1000 /uL (1100-4500); Lymphocytes Percent Auto 19.1 % (25-40); Mean Corpuscular HGB Conc 33.1 % (30-36); Mean Corpuscular Hemoglobin 31.1 PG (26-34); Mean Corpuscular Volume 94.1 fL (80-100); Monocytes Absolute Auto 300 /uL (0-900); Monocytes Percent Auto 6.9 % (3-14); Neutrophils Absolute Auto 3600 /uL (1500-7000); Neutrophils Percent Auto 71.8 % (50-75); Platelet Count 106 X10^3/uL (150-400); Red Blood Cell Count 4.81 X10^6/uL (4.5-5.9); Red Cell Distribution Width 12.5 % (11.6-14.8)
[2021-04-29 11:47] LABS: Alanine Aminotransferase 30 IU/L (<50); Albumin 3.9 g/dL (3.5-5.0); Albumin Globulin Ratio 1.4 (1.0-2.8); Alkaline Phosphatase 114 U/L (38-126); Aspartate Aminotransferase 33 IU/L (17-59); BUN Creatinine Ratio 13.3 (6-22); Bilirubin Total 0.8 mg/dL (0.2-1.3); Blood Urea Nitrogen 12 mg/dL (9-20); Calcium 8.8 mg/dL (8.4-10.2); Carbon Dioxide 28 mmol/L (22-32); Chloride 105 mmol/L (98-107); Estimated Glomerular Filt Rate > 60.0 mL/min (>60); Globulin 2.7 g/dL (1.7-4.1); Glucose 122 mg/dL (80-110); HEMOLYSIS < 15 (0-50); Lipase 62 U/L (23-300); Magnesium 1.8 mg/dL (1.6-2.3); Potassium 4.4 mmol/L (3.4-5.1); Sodium 139 mmol/L (137-145); Total Protein 6.6 g/dL (6.3-8.2)
[2021-04-29 12:00] VITALS: PULSE 38; RESP 15; O2SAT 97
[2021-04-29 12:01] VITALS: BP 131/63; PULSE 38; RESP 13; O2SAT 97
== END 2021-04-29 12:19 | disposition home or self-care (01) ==
PROVIDERS: Emergency Provider Emergency Medicine; PCP Family Medicine
DX: R00.1 Bradycardia, unspecified (principal)
CPT/HCPCS: 36415; 80053; 83690; 83735; 85025; 93005; 93010; 99283; 99284

== ENCOUNTER → 2021-05-26 06:59 | Outpatient (CLI) | payer MEDICARE, SELFPAY ==
[2021-04-29 12:26] VITALS: BMI 25.8
[2021-05-26 08:48] LABS: Cholesterol 147 mg/dL (140-199); HDL Cholesterol 35 mg/dL (40-60); LDL Cholesterol Calculated 88 mg/dL (<100); Triglycerides 119 mg/dL (35-150)
[2021-05-26 09:00] LABS: Free T3, Triiodothyronine Free 4.37 pg/mL (2.77-5.27); Free T4, Direct Thyroxine 1.01 ng/dL (0.78-2.19)
[2021-05-26 09:14] LABS: Thyroid Stimulating Hormone 0.879 uIU/mL (0.47-4.68)
[2021-05-26 09:19] LABS: Prostate Specific Antigen Scrn 1.32 ng/mL (0.1-4.0)
== END ==
PROVIDERS: PCP Family Medicine; Referring Provider Family Medicine; Visit Provider Family Medicine
DX: N40.0 Benign prostatic hyperplasia without lower urinary tract symptoms (principal); E78.6 Lipoprotein deficiency; Z12.5 Encounter for screening for malignant neoplasm of prostate; R00.1 Bradycardia, unspecified; R00.2 Palpitations; Z13.220 Encounter for screening for lipoid disorders; Z87.898 Personal history of other specified conditions
CPT/HCPCS: 36415; 80061; 84439; 84443; 84481; G0103

== ENCOUNTER → 2021-11-22 17:17 | Outpatient (CLI) | payer MEDICARE, SELFPAY ==
[2021-04-29 12:26] VITALS: BMI 25.8
--- NOTE | 2021-11-22 17:20 | DI.RAD.S_ITS ---
PROCEDURE: XR CHEST 2V INDICATIONS: cough, fever, hx pneumonia TECHNIQUE: 2 views of the chest were acquired. COMPARISON: [facility], CR, XR CHEST 2V, 12/17/2020, 12:51. FINDINGS: Surgical changes and devices: None. Lungs and pleura: Lungs are clear. No pleural effusions or pneumothorax. Mediastinum: Mediastinal contours are normal. Heart size is normal. Bones and chest wall: No suspicious bony abnormalities. Soft tissues appear unremarkable. IMPRESSION: No acute cardiopulmonary pathology. Dictated by: Kev Dunn M.D. on 11/22/2021 at 17:35 Approved by: Kev Dunn M.D. on 11/22/2021 at 17:35
== END ==
PROVIDERS: PCP Family Medicine; Referring Provider Nurse Practitioner Critical Care Medicine; Visit Provider Nurse Practitioner Critical Care Medicine
DX: R05.9 Cough, unspecified (principal); R50.9 Fever, unspecified; Z87.01 Personal history of pneumonia (recurrent)
CPT/HCPCS: 71046

== ENCOUNTER → 2021-11-24 12:09 | Outpatient (CLI) | payer MEDICARE, SELFPAY ==
[2021-04-29 12:26] VITALS: BMI 25.8
== END ==
PROVIDERS: PCP Family Medicine; Visit Provider Registered Nurse Diabetes Educator
DX: R30.0 Dysuria (principal)
CPT/HCPCS: 87086

== ENCOUNTER → 2022-01-28 09:59 | Outpatient (CLI) | payer MEDICARE, SELFPAY ==
[2021-12-04 16:47] VITALS: BMI 25.8
[2022-01-28 12:02] LABS: COVID19 -Nasal RAPID Negative (Negative)
== END ==
PROVIDERS: PCP Family Medicine; Visit Provider Urology
DX: Z20.822 Contact with and (suspected) exposure to COVID-19 (principal)
CPT/HCPCS: 87635; C9803

== ENCOUNTER 2022-01-30 10:57 | Day surgery (SDC) | payer MEDICARE, SELFPAY ==
[2021-12-04 16:47] VITALS: BMI 25.8
[2022-01-27 14:07] VITALS: BMI 26.6
[2022-01-30 11:17] VITALS: BP 151/68; PULSE 43; RESP 12; TEMP 36.4; O2SAT 100; BMI 26.6
[2022-01-30] MEDS: LACTATED RINGERS 1,000 ML 42 ML IV (11:27)
--- NOTE | 2022-01-30 12:14 | PM.PREOP ---
Pre-operative Note COVID-19 COVID-19 status: Negative Result date/Date tested (Pos, Neg/Pending): 01/28/22 Criteria for continued procedure: Non-surgical alternatives not available or appropriate per current SOC Interval Note History & Physical reviewed/Exam performed by Physician: Yes Changes to H&P: No
[2022-01-30] MEDS: CEFAZOLIN 2 GM/20 ML SYRINGE IV (13:24)
[2022-01-30] MEDS: LIDOCAINE 2% (GLYDO) 6 ML GEL TOP (13:24)
--- NOTE | 2022-01-30 13:40 | SUR.OPER ---
Lithotomy on padded OR bed, head on pillow, arms secured on padded arm boards at <90 degrees abduction. Legs secured in padded yellow fins stirrups.
--- NOTE | 2022-01-30 13:50 | P.OP_ITS ---
Procedure & Clinicians Procedure: Cystoscopy Same procedure as scheduled: Yes Indications: This 71-year-old male comes for cystoscopy under anesthetic to evaluate for his irritative voiding symptoms and urge incontinence. Patient has developmental delay and was intolerant of attempted flexible cystoscopy in the office. And therefore comes for a cystoscopy under anesthesia. Patient does have a history of prior [employer] laser. Surgeon: Costa Valera Click Yes if Unassisted: Yes Anesthesia Type: General Operative Notes Findings: Urethral meatus is normal. Urethra is normal along its length with normal mucosa. The prostate is widely patent. The ureteral orifices in normal position with clear efflux. The bladder exhibits mild trabeculation the mucosa is normal without sign of lesion there are no stones or other abnormalities. Closure Type: not applicable Specimen(s): none sent Estimated Blood Loss (mL): 0 Procedure in detail: After informed consent was obtained, the patient was identified and brought to the operating room where he was placed in a supine position on the operative table. Patient then had anesthesia induced and maintained. Ensuring an adequate level of anesthesia the patient was transitioned to the lithotomy position. Once in the lithotomy position he was prepped, draped and prepared for transurethral procedure. After prepping draping and assuring an adequate level of anesthesia a 21 [place] cystoscope was passed through the urethra prostate and bladder were cystoscopy was performed with 30 and 70 degree lens. With the findings and hand and no abnormalities noted the scope was removed after the bladder was drained. The patient tolerated the procedure well and was awakened taken the postanesthesia care unit to be discharged home to follow up my office in approximately 10 days there were no complications. Complications: none Post-operative Condition: stable Disposition: PACU Plan for aftercare: Discharged home follow up in my office 10 days will discuss medications at that time.
[2022-01-30 13:52] VITALS: BP 115/68; PULSE 58; RESP 12; TEMP 36.4; O2SAT 99
[2022-01-30 13:57] VITALS: BP 117/65; PULSE 60; RESP 13; O2SAT 99
[2022-01-30 14:02] VITALS: BP 122/68; PULSE 61; RESP 12; O2SAT 99
[2022-01-30 14:13] VITALS: BP 132/69; PULSE 68; RESP 14; TEMP 36.6; O2SAT 99
[2022-01-30 14:19] VITALS: BP 131/73; PULSE 63; RESP 15; TEMP 36.4; O2SAT 100
== END 2022-01-30 14:48 | disposition home or self-care (01) ==
PROVIDERS: PCP Family Medicine; Referring Provider Urology; Visit Provider Urology
PROC: 0TJB8ZZ Inspection of Bladder, Via Natural or Artificial Opening Endoscopic (ICD-10-PCS; CPT 52000; principal; 2022-01-30 12:30)
DX: N39.41 Urge incontinence (principal); R39.13 Splitting of urinary stream; R62.50 Unspecified lack of expected normal physiological development in childhood
CPT/HCPCS: 52000; J0690; J2405; J2704; J3010